=== PATIENT | female | born 1945 | race Caucasian/White ===

== ENCOUNTER 2017-09-06 16:12 | Emergency (ER) | payer OTHER, SELFPAY ==
[2017-09-06 16:12] VITALS: BP 174/85; PULSE 78; RESP 20; TEMP 36.1; O2SAT 97; BMI 31.1
--- NOTE | 2017-09-06 16:25 | PC.NURSE ---
avulsion of distal rt 2nd digit pad from mandolin slicer, bleeding controlled with light pressure, pt concern r/t warfarin rx
--- NOTE | 2017-09-06 16:34 | ED.UPPEXIN ---
HPI - Extremity Injury (Upper) <SANJUANA Silverman - Last Filed: 09/06/17 22:12> General Chief Complaint: Extremity Injury, Upper Stated Complaint: RIGHT HAND INDEX FINGER LACERATION Time Seen by Provider: 09/06/17 16:35 History of Present Illness HPI narrative: 72-year-old female currently on Coumadin here for laceration to her right index finger. She states that she was using her mandolin to slice potatoes at home when she accidentally caught the radial aspect of her right index finger. She states that she recently had her INR completed this morning and was 3 in therapeutic range. She also states that she closed the door on her right middle finger 2 days ago. She denies any other injuries at this timeframe. She is using direct pressure to control bleeding. No other concerns or complaints. MD complaint: injury to: right and finger Related Data Home Medications Medication Instructions Recorded Confirmed aspirin 81 mg PO QDAY #0 08/12/16 09/06/17 fluoxetine 20 mg PO QPM 09/06/17 09/06/17 gabapentin 100 - 300 mg PO HS 09/06/17 09/06/17 metoprolol succinate 50 mg PO BEDTIME 09/06/17 09/06/17 warfarin [Coumadin] 1 dose PO SUMOWETHSA 09/06/17 09/06/17 warfarin [Coumadin] 11.25 mg PO TUFR 09/06/17 09/06/17 Previous Rx's Medication Instructions Recorded omeprazole 40 mg PO QDAY #90 cap 04/23/17 beclomethasone diprop 80 1 puff INHALATION BID #10.6 gram 08/26/17 mcg/actuation HFA breath activated aerosol Allergies Allergy/AdvReac Type Severity Reaction Status Date / Time mometasone furoate Allergy Severe ANAPHYLAXIS Unverified 08/05/17 11:28 [MOMETASONE FUROATE] adhesive [ADHESIVE] Allergy Mild LOCAL Unverified 08/05/17 11:28 HIVES,BLISTERS diclofenac [From VOLTAREN] Allergy Mild HIVES Unverified 08/05/17 11:28 latex [LATEX] Allergy Mild HIVES,BLIST Unverified 08/05/17 11:28 ERS adhesive tape [ADHESIVE TAPE] Allergy Unknown Unverified 08/05/17 11:28 ezetimibe [EZETIMIBE] Allergy Unknown Unverified 08/05/17 11:28 sulfite Allergy Unknown Unverified 08/05/17 11:28 codeine [CODEINE] AdvReac Mild HALLUCINATI Unverified 08/05/17 11:28 ONS gluten [GLUTEN] AdvReac Mild IMMEDIATE Unverified 08/05/17 11:28 DIARRHEA morphine [MORPHINE] AdvReac Mild HALLUCINATI Unverified 08/05/17 11:28 ONS simvastatin [SIMVASTATIN] AdvReac Mild MYALGIAS Unverified 08/05/17 11:28 soy AdvReac Mild SOY MILK - Unverified 08/05/17 11:28 UPSET STOMACH Csexehm-Lce-Zdy Reductase AdvReac Mild MYALGIAS Unverified 08/05/17 11:28 Inhibitor [[id number] REDUCTASE INHIBITOR] Milk Containing Products AdvReac Unknown CRAMPING,DRINKS Unverified 08/05/17 11:28 [MILK CONTAINING PRODUCTS] ALMOND MILK Review of Systems <SANJUANA Silverman - Last Filed: 09/06/17 22:12> Constitutional Denies chills, Denies fever(s), Denies lethargy and Denies weakness Eyes Denies change in vision, Denies eye discharge, Denies irritation and Denies loss of vision ENT Ears, Nose, Mouth, and Throat: Denies change in voice, Denies neck pain and Denies sore throat Cardiovascular Denies chest pain, Denies irregular heart rhythm, Denies lightheadedness, Denies palpitations, Denies dyspnea, Denies dyspnea on exertion and Denies orthopnea Respiratory Denies cough, Denies dyspnea, Denies dyspnea on exertion and Denies wheezing Gastrointestinal Gastrointestinal: Denies abdominal pain, Denies change in bowel habits, Denies diarrhea, Denies nausea and Denies vomiting Genitourinary Denies hematuria, Denies flank pain, Denies urinary incontinence and Denies urinary urgency Musculoskeletal Denies neck pain Comments: Laceration right index finger Integumentary/Breasts Denies pruritus, Denies erythema, Denies rash and Denies wounds Neurologic Denies confusion, Denies loss of vision and Denies weakness Psychiatric Denies anxiety, Denies confusion, Denies depression, Denies homicidal ideation and Denies suicidal ideation Endocrine Denies palpitations Hematologic/Lymphatic Denies easy bruising Allergic/Immunologic Denies wheezing Exam <SANJUANA Silverman - Last Filed: 09/06/17 22:12> Initial Vital Signs Initial Vital Signs: Vital Signs Temperature 97 F L 09/06/17 16:12 Pulse Rate 78 09/06/17 16:12 Respiratory Rate 20 09/06/17 16:12 Blood Pressure 174/85 H 09/06/17 16:12 Pulse Oximetry 97 09/06/17 16:12 Const General: cooperative and well developed Nutritional Appearance: well nourished Orientation: alert, awake, oriented x3 and not confused HENTX Mouth: oral mucosae normal and moist mucous membranes Eyes Conjunctivae: conjunctivae normal Sclera: sclerae normal Pupils: PERRL EOM: EOM intact bilaterally Resp Effort & Inspection: normal respiratory effort, able to speak in complete sentences, no respiratory distress and no use of accessory muscles Auscultation: clear to auscultation bilaterally, no rales, no rhonchi and no wheezes Cardio Rate: regular rate Rhythm: regular rhythm Heart Sounds: no click, no gallops, no murmurs and no rubs Pulses: normal peripheral pulses Skin General: no rashes or lesions noted, No jaundice and No petechiae Extrem Other: Right index finger with avulsion laceration to the ulnar aspect of prior approximately 2 cm in length. Bleeding is controlled with direct pressure. Distal CMS is intact. Right middle finger with no signs of trauma or deformity. Distal CMS is intact. <Dylon Redding MD - Last Filed: 09/07/17 05:53> Initial Vital Signs Initial Vital Signs: Vital Signs Temperature 97 F L 09/06/17 16:12 Pulse Rate 78 09/06/17 16:12 Respiratory Rate 20 09/06/17 16:12 Blood Pressure 174/85 H 09/06/17 16:12 Pulse Oximetry 97 09/06/17 16:12 Course <SANJUANA Silverman - Last Filed: 09/06/17 22:12> Orders Ordered: ED Orders 09/06/17 16:50 XR finger RT min 2V Stat Vital Signs - 8 hr 09/06/17 16:12 Temperature 97 F L Pulse Rate 78 Respiratory Rate 20 Blood Pressure 174/85 H Pulse Oximetry 97 <Dylon Redding MD - Last Filed: 09/07/17 05:53> Orders Ordered: ED Orders 09/06/17 16:50 XR finger RT min 2V Stat Vital Signs - 8 hr 09/06/17 16:12 Temperature 97 F L Pulse Rate 78 Respiratory Rate 20 Blood Pressure 174/85 H Pulse Oximetry 97 [facility] - Extremity Injury (Upper) <SANJUANA Silverman - Last Filed: 09/06/17 22:12> Imaging Data fingers : Radiologist's impression: PROCEDURE: XR FINGER RT MIN 2V INDICATIONS: 72 year-old female with right finger injury. TECHNIQUE: AP hand, 2 views of the right second finger(s) acquired. COMPARISON: [facility], , HAND 3V RIGHT, 10/09/2013, 15:07. FINDINGS: Bones: No acute fractures or dislocations. There is nonacute nonunited avulsion fracture of the ulnar styloid tip. Second, third, and fifth distal interphalangeal joint degeneration is again noted. No suspicious bony lesions. Soft tissues: No suspicious soft tissue calcifications. IMPRESSION: 1. No acute bony injuries of the right index finger. 2. Nonacute nonunited ulnar styloid process avulsion fracture. 3. Second, third, and fifth distal interphalangeal joint degeneration as before. Dictated by: Lee Hatch M.D. on 09/06/2017 at 17:13 Approved by: Lee Hatch M.D. on 09/06/2017 at 17:15 [facility] Narrative Medical decision making narrative: X-ray the right hand was obtained was negative for any acute findings. Gel-Foam was used to the laceration to the right index finger and was able to stop bleeding. It is dressed with a gauze dressing. Follow up with primary care provider later this week for re-evaluation. [id number] Tylenol Motrin as needed for any discomfort. Dress wound daily with bacitracin and a dressing. Keep the original dressing on clean and dry for 36 hr. After that timeframe may change the dressing. Return emergency room for any worsening symptoms. Discharge Plan Departure Patient Disposition: Home, Self-Care Clinical Impression: Laceration of right index finger Discharge Date/Time: 09/06/17 19:04 Interventions: ED Discharge Assessment Last Done: 09/06/17 19:04 Instructions: DI for Avulsion Laceration (Not Requiring Sutures) Activity Restrictions/Additional Instructions: X-ray the right hand was obtained was negative for any acute findings. Gel-Foam was used to the laceration to the right index finger and was able to stop bleeding. It is dressed with a gauze dressing. Follow up with primary care provider later this week for re-evaluation. Shui-myc-xdzjxly Tylenol Motrin as needed for any discomfort. Dress wound daily with bacitracin and a dressing. Keep the original dressing on clean and dry for 36 hr. After that timeframe may change the dressing. Return emergency room for any worsening symptoms. Prescriptions: No Action aspirin 81 MG tablet,delayed release (DR/EC) 81 mg PO QDAY Qty: 0 RF: 0 omeprazole 40 MG capsule,delayed release(DR/EC) 40 mg PO QDAY Qty: 90 RF: 2 beclomethasone dipropionate [Qvar RediHaler] 80 mcg/actuation HFA aerosol breath activated 1 puff INHALATION BID Qty: 10.6 RF: 0 warfarin [Coumadin] 7.5 MG tablet 1 dose PO SUMOWETHSA RF: 0 gabapentin 100 MG capsule 100 - 300 mg PO HS RF: 0 warfarin [Coumadin] 7.5 mg Tablet 11.25 mg PO TUFR RF: 0 metoprolol succinate 50 mg tablet extended release 24 hr 50 mg PO BEDTIME RF: 0 fluoxetine 20 MG capsule 20 mg PO QPM RF: 0 Referrals: Kinsey Espinoza DO [Primary Care Provider] - <Dylon Redding MD - Last Filed: 09/07/17 05:53> Cosign ED Attending Walkerature Attestation: I was immediately available in the department for consultation. Documentation has been reviewed. I agree with assessment and plan.
--- NOTE | 2017-09-06 16:50 | DI.RAD.S_ITS ---
PROCEDURE: XR FINGER RT MIN 2V INDICATIONS: 72 year-old female with right finger injury. TECHNIQUE: AP hand, 2 views of the right second finger(s) acquired. COMPARISON: [facility], , HAND 3V RIGHT, 10/09/2013, 15:07. FINDINGS: Bones: No acute fractures or dislocations. There is nonacute nonunited avulsion fracture of the ulnar styloid tip. Second, third, and fifth distal interphalangeal joint degeneration is again noted. No suspicious bony lesions. Soft tissues: No suspicious soft tissue calcifications. IMPRESSION: 1. No acute bony injuries of the right index finger. 2. Nonacute nonunited ulnar styloid process avulsion fracture. 3. Second, third, and fifth distal interphalangeal joint degeneration as before. Dictated by: Lee Hatch M.D. on 09/06/2017 at 17:13 Approved by: Lee Hatch M.D. on 09/06/2017 at 17:15
== END 2017-09-06 19:04 | disposition home or self-care (01) ==
PROVIDERS: Emergency Provider Nurse Practitioner Family; Family Provider Family Medicine; PCP Family Medicine
DX: S61.210A Laceration without foreign body of right index finger without damage to nail, initial encounter (principal); W26.8XXA Contact with other sharp object(s), not elsewhere classified, initial encounter; Z79.01 Long term (current) use of anticoagulants
CPT/HCPCS: 73140; 99282; 99283

== ENCOUNTER → 2018-01-21 07:43 | Outpatient (CLI) | payer OTHER, SELFPAY ==
--- NOTE | 2018-01-21 07:44 | DI.NM.S_ITS ---
PROCEDURE: NM NGHIA PERF SPECT R&S PHARM Rest and pharmacological stress myocardial perfusion SPECT with gated imaging and ejection fraction RADIOPHARMACEUTICAL: 26.0 mCi Tc-99m tetrafosmin IV at rest and 15.7mCi Tc-99m tetrafosmin IV at peak effect of pharmacological stress. [id number]-fyq-[id number] was performed. INDICATIONS: dyspnea on exertion TECHNIQUE: Radiopharmaceutical was injected at peak stress test, and also at rest. SPECT images were obtained. SPECT myocardial perfusion images were displayed in short axis, horizontal long axis, and vertical long axis views. Gated images were reviewed using [place] software. COMPARISON: None. CARDIAC STRESS: A pharmacologic stress test was performed under the supervision of an attending staff, using an infusion of lexiscan 0.4mg IV X1 . Hemodynamic data: There is normal blood pressure and heart rate response to pharmacologic stress. Symptoms: The patient denied anginal chest pain. Aminophylline: none EKG: No diagnostic changes of ischemia; rare PVCs present. FINDINGS: Raw data: There is good myocardial uptake of radiotracer. No significant motion artifacts. Yqnx-zg-jrhjx ratio is 0.21 (normal is less than 0.38 for tetrafosmin tracer). Left ventricle function: Gated images demonstrate normal left ventricular wall thickening. No segmental wall motion abnormalities. No transient ischemic dilation. Left ventricle resting end diastolic volume is 81 mL. Left ventricle stress ejection fraction is 88%; normal range is above 45%. Myocardial perfusion: There is a severe basal to mid lateral wall defect at rest that improves with stress and nearly resolves with prone imaging, suggesting probably artifact than true ischemia or infarction. IMPRESSION: Probably normal lexiscan nuclear stress test. 1) Probably normal perfusion images. There is a severe basal to mid lateral wall defect at rest that improves with stress and nearly resolves with prone imaging, suggesting probably artifact than true ischemia or infarction. 2) Normal left ventricular size, wall motion, and systolic function (EF post stress 88%). 3) No ECG evidence of ischemia. 4) No angina during the study. 5) No prior nuclear stress test available for comparison. Dictated by: Nika Mazariegos MD on 01/24/2018 at 17:56 Approved by: Nika Mazariegos MD on 01/24/2018 at 18:00
--- NOTE | 2018-01-21 10:29 | PM.TREADMILL ---
Cardiac Stress Test Report Referral & Results Date Patient Seen: 01/21/18 Requesting provider: Kinsey Espinoza Indication: Dyspnea upon exertion Rest ECG: Unremarkable Procedure Note: After both written and verbal informed consent the patient had an IV started by the diagnostic imaging RN and then was hooked up to the treadmill monitoring system. The patient was placed on the treadmill at 1 mile an hour with no elevation and was then injected with the [place] scan material. The Cardiolite was then immediately administered. The patient spent an additional 2-3 minutes on the treadmill before being returned to the [facility] in the supine position. The patient had a normal response to all infused materials. Impression: Normal response to infuse materials Occasional PVC including a single ventricular couplet were identified Please see perfusion imaging report for details regarding possible ischemia Please note: Actual ECG tracings can be found in the PACS system.
== END ==
PROVIDERS: PCP Family Medicine; Visit Provider Family Medicine
DX: R06.09 Other forms of dyspnea (principal); I49.3 Ventricular premature depolarization
CPT/HCPCS: 78452; 93016; 93017; 93018; A9502; J2785

== ENCOUNTER → 2018-01-31 13:19 | Outpatient (CLI) | payer OTHER, SELFPAY ==
--- NOTE | 2018-01-31 | DI.MG.S_ITS ---
BILATERAL DIGITAL SCREENING MAMMOGRAM 3D/2D WITH CAD: 01/31/2018 CLINICAL: Routine screening. Family history of breast cancer. Comparison is made to exams dated: 09/14/2016 mammogram, 10/09/2014 mammogram, and 08/05/2012 mammogram - [facility]. There are scattered fibroglandular elements in both breasts. Current study was also evaluated with a Computer Aided Detection (CAD) system. No significant masses, calcifications, or other findings are seen in either breast. There has been no significant interval change. IMPRESSION: NEGATIVE There is no mammographic evidence of malignancy. A 1 year screening mammogram is recommended. This exam was interpreted at Station ID: [id number]. NOTE: For mammograms, a report in lay terms will be sent to the patient. Approximately 15% of breast malignancies will not be visualized mammographically. In the management of a palpable breast mass, a negative mammogram must not discourage biopsy of a clinically suspicious lesion. Electronically Signed By: Cooper ryan/kirby:02/01/2018 19:22:36 letter sent: Normal Exam ACR BI-RADS Category 1: Negative [id number]
== END ==
PROVIDERS: PCP Family Medicine; Visit Provider Family Medicine
DX: Z12.31 Encounter for screening mammogram for malignant neoplasm of breast (principal); Z80.3 Family history of malignant neoplasm of breast
CPT/HCPCS: 77063; 77067

== ENCOUNTER → 2018-03-14 14:44 | Outpatient (CLI) | payer OTHER, SELFPAY ==
--- NOTE | 2018-03-14 | DI.ECHO.S_ITS ---
[place] [facility]---------+ [facility] +---------+ : : [address] [place] [place] : : : : [id number] : : : : Phone: [phone] Echocardiogram Report + + :Name: JEFF PUGH Study Date: 03/14/2018 Height: 62 in : :[facility] Weight: 156 lb : : Gender: Female BSA: 1.7 m2 : :: 1945 Age: 72 yrs BP: 140/78 mmHg: :Reason For Study: Mitral Valve - Replacement : :Ordering Physician: Braden : :Raul Mackey Performed By: Tawanna Churchill : + + Interpretation Summary The left ventricle is normal in size. There is normal left ventricular wall thickness. The ejection fraction is estimated to be 60-65%. The right ventricle is normal size and visually normal and function. 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 No continuous wave Doppler to measure the mean gradient. But the maximum PW E velocity is 1.4 m/s, which is lower than the prior value of 2 m/s. No color Doppler evidence of mitral stenosis. There is moderate aortic regurgitation. The right ventricular systolic pressure is estimated to be at least 29 mmHg based on an estimated right atrial pressure of 3 mm Hg. -Overall this echo shows improved PA pressure with stable (and likely improved) mean gradient through the mechanical mitral valve. Procedure: A two-dimensional transthoracic echocardiogram with color flow and Doppler was performed. The study quality was technically adequate. Comparison is made with the echocardiogram of 12/11/2016. The patient was in normal sinus rhythm during the exam. Left Ventricle: The left ventricle is normal in size. There is normal left ventricular wall thickness. A false chord is noted (normal variant). The ejection fraction is estimated to be 60-65%. There are no focal wall motion abnormalities. Diastolic function could not be accurately assessed due to confounding valvular disease. Right Ventricle: The right ventricle is normal size. The right ventricular function is visually normal. Atria: The left atrium is severely dilated. The right atrium is mildly dilated. There is no Doppler evidence for an interatrial shunt. 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 The prosthetic mitral valve is well-seated. Mitral regurgitation is present, however its severity cannot be assessed due to shielding from the prosthesis. No continuous wave Doppler to measure the mean gradient. But the maximum PW E velocity is 1.4 m/s, which is lower than the prior value of 2 m/s. No color Doppler evidence of mitral stenosis. Aortic Valve: The aortic valve is trileaflet. The aortic valve opens well. There is no aortic valve stenosis. There is moderate aortic regurgitation. Tricuspid Valve: The tricuspid valve leaflets are thin and pliable. There is mild tricuspid regurgitation. The right ventricular systolic pressure is estimated to be at least 29 mmHg based on an estimated right atrial pressure of 3 mm Hg. Pulmonic Valve: The pulmonic valve leaflets are thin and pliable; valve motion is normal. There is trace pulmonic regurgitation. Great Vessels: The aortic root is borderline dilated. The ascending aorta is at the upper limits of normal in size. The aortic arch is normal in size. The IVC is of normal diameter and collapses greater than 50% with a sniff. This suggests a low right atrial pressure of 3 mm Hg. Pericardium/ Pleura There is no pericardial effusion. MMode/2D Measurements & Calculations LVIDd: 4.2 cm LVOT diam: 2.1 cm LVIDs: 2.0 cm Ao root diam: 3.9 cm FS: 52.3 % Aortic Jxn: 3.0 cm IVSd: 0.90 cm asc Aorta Diam: 3.4 cm LVPWd: 0.87 cm Ao Arch Diam (Prox Trans): 2.6 cm LV ridley. diameter/BSA (cm/m^2): 2.4 LV sys. diameter/BSA (cm/m^2): 1.2 LA A2 area: 25.2 cm2 RA long axis: 5.0 cm LA A4 area: 21.1 cm2 RA area: 19.8 cm2 LA length (vol): 5.3 cm RA vol: 66.8 ml LA vol: 85.1 ml RA : 38.8 ml/m2 LA vol index: 49.5 ml/m2 IVC diam: 0.86 cm RVD1 (basal): 3.7 cm RVD2 (mid): 3.0 cm TAPSE: 1.0 cm Doppler Measurements & Calculations Ao V2 max: 125.7 cm/sec LVOT Max Michael: 93.5 cm/sec Ao V2 mean: 87.5 cm/sec LV V1 max P.5 mmHg Ao max P.3 mmHg LV V1 VTI: 17.7 cm Ao mean P.5 mmHg HAMZAH(I,D): 2.3 cm2 Ao V2 VTI: 26.7 cm HAMZAH(V,D): 2.6 cm2 sev ratio: 0.66 HAMZAH indexed to BSA (cm^2/m^2): 1.4 AI P1/2t: 427.1 msec AI dec slope: 259.3 cm/sec2 MV E max michael: 141.1 cm/sec TR max michael: 254.1 cm/sec MV A max michael: 50.5 cm/sec TR max P.8 mmHg MV E/A: 2.8 PA V2 max: 56.9 cm/sec Med Peak E' Michael: 6.6 cm/sec PA V2 mean: 44.2 cm/sec E/E' med: 21.3 PA mean P.86 mmHg Lat Peak E' Michael: 8.5 cm/sec PA Accel Time: 0.10 sec E/E' lat: 16.6 E/e' average: 18.9 MV dec time: 0.20 sec MV P1/2t: 59.2 msec MVA(VTI): 2.4 cm2 MV V2 mean: 61.1 cm/sec MV P1/2t max michael: 141.1 cm/sec MV mean P.1 mmHg MVA(P1/2t): 3.7 cm2 MV V2 VTI: 25.7 cm SV(LVOT): 62.4 ml Electronically signed by: Braden Carter M.D. on Reading Physician:03/14/2018 06:47 PM
== END ==
PROVIDERS: PCP Family Medicine; Visit Provider Hospitalist
DX: I08.3 Combined rheumatic disorders of mitral, aortic and tricuspid valves (principal); Z95.2 Presence of prosthetic heart valve
CPT/HCPCS: 93306

== ENCOUNTER → 2018-04-22 09:00 | Outpatient (CLI) | payer OTHER, SELFPAY ==
[2018-04-22 09:40] LABS: Add Manual Diff / Slide Review NO; Basophils Absolute Auto 0 /uL (0-100); Basophils Percent Auto 0.1 % (0-2); Eosinophils Absolute Auto 0 /uL (0-450); Hematocrit 41.2 % (36-46); Lymphocytes Absolute Auto 500 /uL (1100-4500); Lymphocytes Percent Auto 6.9 % (25-40); Mean Corpuscular HGB Conc 33.9 % (30-36); Mean Corpuscular Hemoglobin 31.1 PG (26-34); Mean Corpuscular Volume 91.7 fL (80-100); Monocytes Absolute Auto 200 /uL (0-900); Monocytes Percent Auto 3.1 % (3-14); Neutrophils Absolute Auto 6400 /uL (1500-7000); Neutrophils Percent Auto 89.9 % (50-75); Platelet Count 216 X10^3/uL (150-400); Red Blood Cell Count 4.49 X10^6/uL (4.0-5.2); Red Cell Distribution Width 13.5 % (11.6-14.8); White Blood Cell Count 7.1 X10^3/uL (4.5-11.0)
[2018-04-22 09:46] LABS: HEMOLYSIS < 15 (0-50); Potassium 4.4 mmol/L (3.4-5.1)
[2018-04-22 09:47] LABS: Alanine Aminotransferase 30 IU/L (9-52); Albumin 4.7 g/dL (3.5-5.0); Albumin Globulin Ratio 1.5 (1.0-2.8); Alkaline Phosphatase 69 U/L (38-126); Amylase 51 U/L (30-110); Aspartate Aminotransferase 23 IU/L (14-36); BUN Creatinine Ratio 21.7 (6-22); Bilirubin Total 0.6 mg/dL (0.2-1.3); Blood Urea Nitrogen 13 mg/dL (7-17); Calcium 9.8 mg/dL (8.4-10.2); Carbon Dioxide 26 mmol/L (22-32); Chloride 101 mmol/L (98-107); Estimated Glomerular Filt Rate > 60.0 mL/min (>60); Globulin 3.1 g/dL (1.7-4.1); Glucose 110 mg/dL (80-110); Lipase 76 U/L (23-300); Sodium 137 mmol/L (137-145); Total Protein 7.8 g/dL (6.3-8.2)
== END ==
PROVIDERS: PCP Family Medicine; Visit Provider Registered Nurse
DX: R10.11 Right upper quadrant pain (principal); R10.13 Epigastric pain
CPT/HCPCS: 36415; 80053; 82150; 83690; 85025

== ENCOUNTER → 2018-04-28 09:14 | Outpatient (CLI) | payer OTHER, SELFPAY ==
--- NOTE | 2018-04-28 09:16 | DI.US.S_ITS ---
PROCEDURE: US ABDOMEN COMPLETE INDICATIONS: EPIGASTRIC PAIN TECHNIQUE: Real-time scanning was performed of the abdominal and retroperitoneal organs, with image documentation. COMPARISON: [facility], US, ABDOMEN COMPLETE, 08/31/2012, 8:23. FINDINGS: Liver: Liver is normal in size and homogeneous in echotexture. Gallbladder: No gallstones identified. Normal gallbladder wall. No pericholecystic fluid. Negative sonographic Miranda sign. Biliary ducts: Intrahepatic bile ducts are non-dilated. Extrahepatic bile duct caliber measures 5.4 mm. Normal is 6-7 mm or less in diameter, or 10 mm or less post-cholecystectomy. Pancreas: Visualized portions of the pancreas are sonographically normal. Spleen: Spleen is normal in size and homogeneous in echotexture. Kidneys: Kidneys are normal in size and echotexture. Right kidney measures 9.7 cm long; left kidney measures 10.7 cm long. No hydronephrosis or nephrolithiasis. No solid masses. Aorta: Visualized aorta is normal in caliber at less than 3 cm. Iliacs: Proximal common iliac arteries are normal in caliber at less than 2.5 cm. IVC: Intrahepatic inferior vena cava is patent. Miscellaneous: No free abdominal fluid. IMPRESSION: No source for right upper quadrant and epigastric pain identified. Dictated by: Terry DEE Interpreted: Lakisha Piña MD on 04/28/2018 at 11:38 Approved by: Lakisha Piña M.D. on 04/28/2018 at 13:06
== END ==
PROVIDERS: PCP Family Medicine; Visit Provider Registered Nurse
DX: R10.13 Epigastric pain (principal); R10.11 Right upper quadrant pain
CPT/HCPCS: 76700

== ENCOUNTER → 2018-05-19 15:19 | Outpatient (CLI) | payer OTHER, SELFPAY ==
[2018-05-21 13:24] LABS: Rubeola Measles IgG > 300.00 AU/mL (< 25.00)
== END ==
PROVIDERS: PCP Family Medicine; Visit Provider Family Medicine
DX: K92.9 Disease of digestive system, unspecified (principal); Z01.84 Encounter for antibody response examination; K58.9 Irritable bowel syndrome, unspecified
CPT/HCPCS: 36415; 83516; 86255; 86735; 86762; 86765

== ENCOUNTER → 2019-01-17 14:57 | Outpatient (CLI) | payer OTHER, SELFPAY ==
--- NOTE | 2019-01-17 | DI.ECHO.S_ITS ---
[facility] +---------+ : : 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 The prosthetic mitral valve is well-seated. The mitral valve mean gradient is 3.5 mmHg. The left ventricular ejection fraction is normal. There are no focal wall motion abnormalities. The right ventricle is normal in size and function. The right ventricular systolic pressure is estimated to be at least 29 mmHg based on an estimated right atrial pressure of 3 mm Hg. -Compared to prior echo, these findings are similar. The peak MV E velocity on PW is slightly higher than 2018 echo but the mean gradient is the same as 2017 and PA pressures are also unchanged. Procedure: A two-dimensional transthoracic echocardiogram with color flow and Doppler was performed. The study quality was technically adequate. Comparison is made with the echocardiogram of 03/14/2018. The patient was in normal sinus rhythm during the exam. Left Ventricle: The left ventricle is normal in size. There is normal left ventricular wall thickness. A false chord is noted (normal variant). The ejection fraction is estimated to be 60-65%. The left ventricular ejection fraction is normal. There are no focal wall motion abnormalities. Diastolic function could not be accurately assessed due to confounding valvular disease. Right Ventricle: The right ventricle is normal in size and function. Atria: The left atrium is severely dilated. The right atrium is mildly dilated. There is no Doppler evidence for an interatrial shunt. 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 The prosthetic mitral valve is well-seated. Mitral regurgitation is present, however its severity cannot be assessed due to shielding from the prosthesis. The mitral valve mean gradient is 3.5 mmHg. Aortic Valve: The aortic valve is trileaflet. The aortic valve opens well. There is no aortic valve stenosis. There is mild to moderate aortic regurgitation. Tricuspid Valve: The tricuspid valve leaflets are thin and pliable. There are multiple TR jets. There is mild tricuspid regurgitation. The right ventricular systolic pressure is estimated to be at least 29 mmHg based on an estimated right atrial pressure of 3 mm Hg. Pulmonic Valve: The pulmonic valve leaflets are thin and pliable; valve motion is normal. There is mild pulmonic regurgitation. Great Vessels: The aortic root is normal size. The ascending aorta is at the upper limits of normal in size. The aortic arch is normal in size. The IVC is of normal diameter and collapses greater than 50% with a sniff. This suggests a low right atrial pressure of 3 mm Hg. Pericardium/ Pleura There is no pericardial effusion. MMode/2D Measurements & Calculations LVIDd: 4.4 cm LVOT diam: 2.1 cm LVIDs: 2.5 cm Ao root diam: 3.8 cm FS: 42.4 % Aortic Jxn: 3.1 cm IVSd: 0.84 cm asc Aorta Diam: 3.4 cm LVPWd: 0.99 cm Ao Arch Diam (Prox Trans): 2.7 cm LV ridley. diameter/BSA (cm/m^2): 2.5 LV sys. diameter/BSA (cm/m^2): 1.5 LA A2 area: 27.3 cm2 RA long axis: 5.0 cm LA A4 area: 23.8 cm2 RA area: 18.8 cm2 LA length (vol): 5.8 cm RA vol: 60.2 ml LA vol: 95.6 ml RA : 35.0 ml/m2 LA vol index: 55.6 ml/m2 IVC diam: 1.0 cm RVD1 (basal): 3.6 cm RVD2 (mid): 2.6 cm TAPSE: 1.1 cm Doppler Measurements & Calculations Ao V2 max: 126.0 cm/sec LVOT Max Michael: 82.1 cm/sec Ao V2 mean: 73.7 cm/sec LV V1 max P.7 mmHg Ao max P.3 mmHg LV V1 VTI: 18.8 cm Ao mean P.7 mmHg HAMZAH(I,D): 2.6 cm2 Ao V2 VTI: 24.9 cm HAMZAH(V,D): 2.2 cm2 sev ratio: 0.76 HAMZAH indexed to BSA (cm^2/m^2): 1.5 AI P1/2t: 395.6 msec AI dec slope: 260.5 cm/sec2 Med Peak E' Michael: 5.3 cm/sec TR max michael: 257.0 cm/sec Lat Peak E' Michael: 6.6 cm/sec TR max P.4 mmHg MVA(VTI): 2.2 cm2 PA V2 max: 56.0 cm/sec PA V2 mean: 42.9 cm/sec PA mean P.79 mmHg PA Accel Time: 0.11 sec MV V2 mean: 75.5 cm/sec SV(LVOT): 64.5 ml MV mean P.5 mmHg MV V2 VTI: 29.3 cm Electronically signed by: Braden Carter M.D. on Reading Physician:01/18/2019 06:24 PM
== END ==
PROVIDERS: Family Provider Family Medicine; PCP Family Medicine; Visit Provider Hospitalist
DX: I08.3 Combined rheumatic disorders of mitral, aortic and tricuspid valves (principal); I27.20 Pulmonary hypertension, unspecified; Z95.2 Presence of prosthetic heart valve
CPT/HCPCS: 93306

== ENCOUNTER → 2019-04-05 13:45 | Outpatient (CLI) | payer OTHER, SELFPAY ==
--- NOTE | 2019-04-05 13:46 | DI.RAD.S_ITS ---
PROCEDURE: XR SACRUM COCCYX MIN 2V INDICATIONS: fall TECHNIQUE: 3 views of the sacrum and coccyx acquired. COMPARISON: [facility], CR, XR PELVIS 1-2V, 04/05/2019, 13:42. FINDINGS: Bones: No fractures or dislocations. No suspicious bony lesions. There is partial visualization of the proximal femur hardware, as demonstrated on the lateral view. Age-appropriate degenerative changes are seen, including involving the visualized lower lumbar spine. Soft tissues: Visualized bowel gas pattern is normal. No suspicious soft tissue densities. IMPRESSION: No displaced fractures are seen on these plain films. Dictated by: Andrae Dietz M.D. on 04/05/2019 at 13:12 Approved by: Andrae Dietz M.D. on 04/05/2019 at 13:14
--- NOTE | 2019-04-05 13:46 | DI.RAD.S_ITS ---
PROCEDURE: XR PELVIS 1-2V INDICATIONS: fall TECHNIQUE: One view(s) of the pelvis acquired. COMPARISON: None. FINDINGS: Bones: No fractures or dislocations. No suspicious bony lesions. There is partial visualization of right femoral hardware. Degenerative changes are seen, including involving visualized lower lumbar spine. Soft tissues: Visualized bowel gas pattern is normal. No suspicious soft tissue calcifications. IMPRESSION: No displaced fractures are seen on these plain films. If there is focal tenderness, or other clinical concern for a fracture not seen on these images in this patient with a given history of trauma, please consider a dedicated CT or a short-term followup plain film series (in 1-2 weeks) for further evaluation. Dictated by: Andrae Dietz M.D. on 04/05/2019 at 13:14 Approved by: Andrae Dietz M.D. on 04/05/2019 at 13:15
== END ==
PROVIDERS: PCP Family Medicine; Visit Provider Physician Assistant
DX: M53.3 Sacrococcygeal disorders, not elsewhere classified (principal)
CPT/HCPCS: 72170; 72220

== ENCOUNTER → 2019-08-31 15:56 | Outpatient (CLI) | payer OTHER, SELFPAY ==
--- NOTE | 2019-08-31 15:59 | DI.RAD.S_ITS ---
PROCEDURE: XR WRIST RT MIN 3V INDICATIONS: right wrist pain TECHNIQUE: 4 views of the wrist were acquired. COMPARISON: None. FINDINGS: Bones: No fractures or dislocations. No suspicious bony lesions. First CMC and triscaphe joint degeneration. Distal radial ulnar joint degeneration. Diffuse carpal degenerative sclerosis and spurring. Mildly widened appearance of the scapholunate interval. Chronic ossicle seen projecting adjacent to the ulnar styloid presumably from remote trauma, versus loose body Soft tissues: No suspicious soft tissue calcifications. IMPRESSION: Diffuse carpal degenerative changes Widened appearance of the scapholunate interval raising the possibility of scapholunate ligament injury. This can be further assessed with MR arthrogram as clinically warranted. Dictated by: Tom Coburn M.D. on 08/31/2019 at 16:38 Approved by: Tom Coburn M.D. on 08/31/2019 at 16:42
[2019-08-31 17:32] LABS: Add Manual Diff / Slide Review NO; Basophils Absolute Auto 0 /uL (0-100); Basophils Percent Auto 0.8 % (0-2); Eosinophils Absolute Auto 200 /uL (0-450); Eosinophils Percent Auto 5.5 % (2-4); Hematocrit 37.3 % (36-46); Lymphocytes Absolute Auto 1000 /uL (1100-4500); Lymphocytes Percent Auto 27.2 % (25-40); Mean Corpuscular HGB Conc 34.8 % (30-36); Mean Corpuscular Hemoglobin 32.3 PG (26-34); Mean Corpuscular Volume 92.9 fL (80-100); Monocytes Absolute Auto 500 /uL (0-900); Monocytes Percent Auto 13.5 % (3-14); Neutrophils Absolute Auto 2000 /uL (1500-7000); Platelet Count 197 X10^3/uL (150-400); Red Blood Cell Count 4.02 X10^6/uL (4.0-5.2); Red Cell Distribution Width 13.6 % (11.6-14.8); White Blood Cell Count 3.8 X10^3/uL (4.5-11.0)
[2019-08-31 17:47] LABS: BUN Creatinine Ratio 15.3 (6-22); Blood Urea Nitrogen 11 mg/dL (7-17); C-Reactive Protein Quant 0.5 mg/dL (<1.0); Calcium 9.4 mg/dL (8.4-10.2); Carbon Dioxide 25 mmol/L (22-32); Chloride 106 mmol/L (98-107); Estimated Glomerular Filt Rate > 60.0 mL/min (>60); Glucose 87 mg/dL (80-110); HEMOLYSIS < 15 (0-50); Potassium 4.1 mmol/L (3.4-5.1); Sodium 137 mmol/L (137-145); Uric Acid 5.2 mg/dL (2.5-6.2)
[2019-08-31 17:54] LABS: Erythrocyte Sedimentation Rate 17 MM/HR (0-20)
== END ==
PROVIDERS: PCP Family Medicine; Referring Provider Family Medicine; Visit Provider Family Medicine
DX: M10.9 Gout, unspecified (principal); M25.531 Pain in right wrist
CPT/HCPCS: 36415; 73110; 80048; 84550; 85025; 85651; 86140

== ENCOUNTER → 2019-10-26 07:13 | Outpatient (CLI) | payer OTHER, SELFPAY ==
[2019-10-26 08:23] LABS: Basophils Absolute Auto 0 /uL (0-100); Eosinophils Absolute Auto 200 /uL (0-450); Hemoglobin 13.3 g/dL (12.0-16.0); Lymphocytes Absolute Auto 900 /uL (1100-4500); Monocytes Absolute Auto 500 /uL (0-900); Neutrophils Absolute Auto 1700 /uL (1500-7000)
[2019-10-26 08:30] LABS: Add Manual Diff / Slide Review NO; Basophils Percent Auto 0.8 % (0-2); Hematocrit 38.7 % (36-46); Mean Corpuscular HGB Conc 34.3 % (30-36); Mean Corpuscular Hemoglobin 31.5 PG (26-34); Mean Corpuscular Volume 91.9 fL (80-100); Monocytes Percent Auto 14.2 % (3-14); Platelet Count 184 X10^3/uL (150-400); Red Blood Cell Count 4.21 X10^6/uL (4.0-5.2); Red Cell Distribution Width 13.6 % (11.6-14.8); White Blood Cell Count 3.3 X10^3/uL (4.5-11.0)
[2019-10-26 08:31] LABS: Alanine Aminotransferase 24 IU/L (<35); Albumin 4.1 g/dL (3.5-5.0); Albumin Globulin Ratio 1.5 (1.0-2.8); Alkaline Phosphatase 81 U/L (38-126); Aspartate Aminotransferase 32 IU/L (14-36); BUN Creatinine Ratio 15.4 (6-22); Bilirubin Total 0.6 mg/dL (0.2-1.3); Blood Urea Nitrogen 10 mg/dL (7-17); Calcium 9.3 mg/dL (8.4-10.2); Carbon Dioxide 30 mmol/L (22-32); Chloride 105 mmol/L (98-107); Cholesterol 312 mg/dL (140-199); Estimated Glomerular Filt Rate > 60.0 mL/min (>60); Globulin 2.8 g/dL (1.7-4.1); Glucose 87 mg/dL (80-110); HDL Cholesterol 60 mg/dL (40-60); HEMOLYSIS < 15 (0-50); LDL Cholesterol Calculated 218 mg/dL (<100); Lipase 110 U/L (23-300); Potassium 4.6 mmol/L (3.4-5.1); Sodium 137 mmol/L (137-145); Total Protein 6.9 g/dL (6.3-8.2); Triglycerides 169 mg/dL (35-150)
[2019-10-26 09:11] LABS: TSH w/ Reflex to FT4 2.86 uIU/mL (0.47-4.68)
== END ==
PROVIDERS: PCP Family Medicine; Referring Provider Family Medicine; Visit Provider Family Medicine
DX: E66.9 Obesity, unspecified (principal); E78.5 Hyperlipidemia, unspecified; I27.20 Pulmonary hypertension, unspecified; R00.0 Tachycardia, unspecified; Z95.2 Presence of prosthetic heart valve; R10.9 Unspecified abdominal pain
CPT/HCPCS: 36415; 80053; 80061; 83690; 84443; 85025

== ENCOUNTER → 2019-11-01 08:03 | Outpatient (CLI) | payer OTHER, SELFPAY ==
--- NOTE | 2019-11-01 08:05 | DI.US.S_ITS ---
PROCEDURE: US ABDOMEN COMPLETE INDICATIONS: ABN STOOL TECHNIQUE: Real-time scanning was performed of the abdominal and retroperitoneal organs, with image documentation. COMPARISON: [facility], CR, XR PELVIS 1-2V, 04/05/2019, 13:42. [facility], US, US ABDOMEN COMPLETE, 04/28/2018, 9:20. FINDINGS: Liver: Coarse echogenic liver suggesting diffuse hepatocellular disease/fatty infiltration. Please correlate with LFTs. Gallbladder: Unremarkable. No sonographic Miranda sign. Biliary ducts: Intrahepatic bile ducts are non-dilated. Extrahepatic bile duct caliber measures 4-6 mm. Normal is 6-7 mm or less in diameter, or 10 mm or less post-cholecystectomy. Pancreas: Visualized portions of the pancreas are sonographically normal. Spleen: Spleen is normal in size and homogeneous in echotexture. Kidneys: Kidneys are normal in size and echotexture. Right kidney measures 9.4 cm long; left kidney measures 11.3 cm long. No hydronephrosis . There are sub 5 mm scattered echogenic foci without definite shadowing. Technically, cannot exclude nonobstructive nephrolithiasis. No solid masses. Aorta: Visualized aorta is normal in caliber at less than 3 cm. Iliacs: Proximal common iliac arteries are normal in caliber at less than 2.5 cm. IVC: Intrahepatic inferior vena cava is patent. Miscellaneous: No free abdominal fluid. IMPRESSION: Coarse echogenic liver suggesting diffuse hepatocellular disease/fatty infiltration. Please correlate with LFTs. Normal appearance of the gallbladder. Non-specific small echogenic foci seen in the kidneys, further evaluation could be performed with CT KUB to exclude nephrolithiasis as clinical suspicion warrants. Dictated by: Tom Coburn M.D. on 11/01/2019 at 9:12 Approved by: Tom Coburn M.D. on 11/01/2019 at 9:14
== END ==
PROVIDERS: PCP Family Medicine; Referring Provider Family Medicine; Visit Provider Family Medicine
DX: R19.5 Other fecal abnormalities (principal)
CPT/HCPCS: 76700

== ENCOUNTER 2019-11-30 09:24 | Emergency (ER) | payer OTHER, SELFPAY ==
[2019-11-30 09:30] VITALS: PULSE 80; RESP 18; O2SAT 96
[2019-11-30 09:31] VITALS: BP 202/92; PULSE 85; RESP 12; TEMP 36.8; O2SAT 96; BMI 28.5
--- NOTE | 2019-11-30 09:36 | DI.RAD.S_ITS ---
PROCEDURE: XR CHEST 1V INDICATIONS: chest pain TECHNIQUE: One view of the chest was acquired. COMPARISON: [facility], , CHEST 2 VIEW, 11/30/2016, 8:39. FINDINGS: Surgical changes and devices: Sternotomy wires and prosthetic heart valve are again seen. Electronic device is seen projecting over the left upper chest. Lungs and pleura: Lungs are clear. No pleural effusions or pneumothorax. Mediastinum: Mediastinal contours appear normal. Heart size is normal. Bones and chest wall: No suspicious bony lesions. Overlying soft tissues appear unremarkable. IMPRESSION: No acute cardiopulmonary abnormality. Dictated by: Angel Fernandez M.D. on 11/30/2019 at 10:00 Approved by: Angel Fernandez M.D. on 11/30/2019 at 10:02
--- NOTE | 2019-11-30 09:37 | PC.NURSE ---
Pt has hx articifial heart valve,takes coumadin. pt was walking this am when she felt SOB,dizzy,nauseated,diaphoretic and 1 episode of diarrhea. pt wearing heart monitor and was concerned about an abnormal heart rhythm that she saw on her phone.
--- NOTE | 2019-11-30 09:44 | ED.DIZZY ---
HPI - Dizziness General Chief Complaint: Dizziness Stated Complaint: abnormal reading from heart monitor,diarrhea,dizzy Time Seen by Provider: 11/30/19 09:26 Source: patient Mode of arrival: Ambulatory Limitations: no limitations History of Present Illness HPI Narrative: Patient is a 74-year-old female who presents with a variety of symptoms including dizziness and heart palpitations. She is followed by Dr. Carter cardiology, she has a Holter monitor on now. She has had these symptoms ongoing for some time. She says today she was out walking the dog when she felt her heart beating fast she got short of breath and dizzy and lightheaded. She overall does not feel well. She denies any numbness tingling or weakness in any extremities. She is feeling somewhat better. Her phone says her heart rate was 170 and she showed me the rhythm it appears to be all artifact. She has low-grade headache in the front of her head he says that usually happens when she feels this way. She denies any vomiting but does feel nauseated. No change in vision. No fever or chills. She is short of breath with exertion and even sitting up in taking a deep breath she does not feel she is getting a full breath. She denies any fever chills or productive cough. She said she had an episode of severe diarrhea when she got home she has no abdominal pain MD complaint: dizziness Related Data Home Medications Medication Instructions Recorded Confirmed aspirin 81 mg PO QDAY #0 08/12/16 10/25/19 Previous Rx's Medication Instructions Recorded warfarin 7.5 mg tablet 7.5 mg PO SUMOWETHSA #90 tab 08/23/18 cephalexin 500 mg capsule See Rx Instructions PO ONCE #8 cap 03/17/19 fluoxetine 40 mg capsule 40 mg PO DAILY #30 cap 06/21/19 metoprolol succinate 50 mg 50 mg PO BEDTIME #90 tab 07/17/19 tablet,extended release 24 hr omeprazole 40 mg capsule,delayed 40 mg PO DAILY #90 cap 09/20/19 release warfarin 7.5 mg tablet See Rx Instructions .ROUTE 11/24/19 .COMPLEX #103 tablet Allergies Allergy/AdvReac Type Severity Reaction Status Date / Time mometasone furoate Allergy Severe ANAPHYLAXIS Verified 11/30/19 09:31 [MOMETASONE FUROATE] adhesive [ADHESIVE] Allergy Mild LOCAL Verified 11/30/19 09:31 HIVES,BLISTERS diclofenac [From VOLTAREN] Allergy Mild HIVES Verified 11/30/19 09:31 latex [LATEX] Allergy Mild HIVES,BLIST Verified 11/30/19 09:31 ERS adhesive tape [ADHESIVE TAPE] Allergy Unknown Verified 11/30/19 09:31 ezetimibe [EZETIMIBE] Allergy Unknown Verified 11/30/19 09:31 sulfite Allergy Unknown Verified 11/30/19 09:31 codeine [CODEINE] AdvReac Mild HALLUCINATI Verified 11/30/19 09:31 ONS gluten [GLUTEN] AdvReac Mild IMMEDIATE Verified 11/30/19 09:31 DIARRHEA morphine [MORPHINE] AdvReac Mild HALLUCINATI Verified 11/30/19 09:31 ONS simvastatin [SIMVASTATIN] AdvReac Mild MYALGIAS Verified 11/30/19 09:31 soy AdvReac Mild SOY MILK - Verified 11/30/19 09:31 UPSET STOMACH Unlygiq-Lfw-Kud Reductase AdvReac Mild MYALGIAS Verified 11/30/19 09:31 Inhibitor [[id number] REDUCTASE INHIBITOR] Milk Containing Products AdvReac Unknown CRAMPING,DRINKS Verified 11/30/19 09:31 [MILK CONTAINING PRODUCTS] ALMOND MILK Review of Systems Review of Systems ROS Unobtainable: All systems reviewed & are unremarkable except as noted in HPI and below Constitutional Constitutional: Denies body ache(s), Denies fever(s), Reports headache(s) and Denies night sweats Eyes Eyes: Denies change in vision, Denies eye discharge, Denies irritation and Denies loss of vision ENT Ears, Nose, Mouth, and Throat: Reports headache(s) Cardiovascular Cardiovascular: Reports as per HPI and Reports dyspnea on exertion Respiratory Respiratory: Reports as per HPI, Denies cough and Reports dyspnea on exertion Gastrointestinal Gastrointestinal: Denies abdominal pain, Denies change in bowel habits, Denies diarrhea, Denies nausea and Denies vomiting Neurologic Neurologic: Reports headache(s) and Denies loss of vision Patient History Medical History (Updated 11/30/19 @ 11:07 by Makenna Anne DO) Abnormal Pap smear of cervix (Resolved) Allergy to casein (Acute) Anxiety (Chronic ~1979) Carpal tunnel syndrome (Chronic ~1987) Chickenpox (Resolved) Class 1 obesity (Resolved 08/20/14) Depression (Chronic ~1966) Fibromyalgia (Chronic) Foot pain (Chronic ~2007) Fracture (Resolved ~2007) GERD (gastroesophageal reflux disease) (Chronic ~2008) Heavy menstrual period (Resolved ~1994) History of recurrent ear infection (Chronic) Hyperlipidemia (Chronic) Hypertension (Chronic) IBS (irritable bowel syndrome) (Chronic ~2014) Measles (Resolved ~1951) Migraines (Chronic ~1959) Mumps (Resolved) Osteoarthritis (Chronic ~1999) Osteopenia (Chronic ~1997) Pulmonary hypertension (Acute) Rheumatic fever (Resolved ~1953) Seasonal allergies (Chronic) Sinus tachycardia (Chronic) Urinary incontinence (Chronic ~2002) Vision abnormalities (Chronic) Surgical History Anesthesia (Inactive) H/O mitral valve replacement (Chronic) Status post appendectomy (~1980) Status post bunionectomy (~2010) Status post colonoscopy (~2006) Surgical procedure planned (Resolved ~1996) Family History Brother Age: 60 Hypertension High cholesterol Child Age: 48 Mental health problem Father High cholesterol Heart attack Social History Smoking Status: Never smoker alcohol intake: current substance use type: does not use Smoking Status: Never smoker alcohol intake frequency: holidays/special occasions only Substance Use Type: does not use Exam Initial Vital Signs Initial Vital Signs: Vital Signs Pulse Rate 80 11/30/19 09:30 Respiratory Rate 18 11/30/19 09:30 Pulse Oximetry 96 11/30/19 09:30 GENERAL: Alert well-appearing female and in no acute distress. HEENT: Head atraumatic,EOMI, pupils reactive, face symmetric, moist mucous membranes CARDIOVASCULAR: Regular rate and rhythm without murmurs, rubs or gallops. RESPIRATORY: Breath sounds equal bilaterally, no wheezes rales or rhonchi. ABDOMEN: Soft, nontender. Normoactive bowel sounds all 4 quadrants. No guarding or rebound. EXTREMITIES: Normal range of motion, no clubbing or edema. Neurovascularly intact NEUROLOGICAL: Alert and oriented x4.Normal gait and speech. Cranial nerves II through XII grossly intact. 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 Scores NIH Stroke Scale Level of Conciousness: Alert, keenly responsive Ask month/age: Answers both questions correctly. Open/close eyes, close hand: Performs both tasks correctly Best gaze horizontal: Normal Visual barbour: No visual loss Facial palsy: Normal symetrical movement Left arm drift: No drift for full 10 sec Right arm drift: No drift for full 10 sec Left leg drift: No drift for full 5 sec Right leg drift: No drift for full 5 sec Limb ataxia: Absent Sensory on face/arms/legs: Normal, no sensory loss Best language: No aphasia, normal Dysarthria: Normal Extinction or inattention: No abnormality Total NIH Stroke scale score: 0 Course Orders Ordered: ED Orders 11/30/19 09:30 Complete Blood Count AUTO DIFF Stat Comprehensive Metabolic Panel Stat Lipase Stat NT-proBNP (BNP-Adult 18+) Stat Partial Thromboplastin Time Stat Prothrombin Time INR Stat Troponin & CK Cardiac Panel Stat 11/30/19 09:36 XR chest 1V Stat EKG-12 Lead Stat 11/30/19 09:52 CT head/brain wo con Stat Discontinued Medications Sodium Chloride (Normal Saline 0.9%) 1,000 mls @ 150 mls/hr IV CONT HENRRY Last Infusion: 11/30/19 11:24 Dose: 0 mls/hr Documented by: Admin: 11/30/19 09:52 Dose: 150 mls/hr Documented by: SAMIRA Vital Signs Vital signs: Vital Signs - 8 hr 11/30/19 10:30 11/30/19 11:01 Pulse Rate 70 77 Respiratory Rate 18 Blood Pressure 168/81 H Pulse Oximetry 98 93 MDM - Dizziness Lab Data Attestation: I reviewed the patient's lab results. Result diagrams: 11/30/19 09:30 11/30/19 09:30 Labs: Lab Results 11/30/19 11/30/19 11/30/19 Range/Units 09:30 09:30 09:30 WBC 4.5 (4.5-11.0) X10^3/uL RBC 4.32 (4.0-5.2) X10^6/uL Hgb 13.6 (12.0-16.0) g/dL Hct 39.6 (36-46) % MCV 91.6 (80-100) fL MCH 31.5 (26-34) PG MCHC 34.4 (30-36) % RDW 13.8 (11.6-14.8) % Plt Count 210 (150-400) X10^3/uL Neut % (Auto) 52.7 (50-75) % Lymph % (Auto) 28.3 (25-40) % [place] % (Auto) 14.3 H (3-14) % Eos % (Auto) 4.0 (2-4) % Baso % (Auto) 0.7 (0-2) % Neut # (Auto) 2400 (0457-3068) /uL Lymph # (Auto) 1300 (5278-9168) /uL [place] # (Auto) 600 (0-900) /uL Eos # (Auto) 200 (0-450) /uL Baso # (Auto) 0 (0-100) /uL PT 37.9 H (10.1-12.7) SECONDS INR 3.3 H (0.9-1.3) APTT 54 H (26.4-36.2) SECONDS Sodium 138 (137-145) mmol/L Potassium 4.5 (3.4-5.1) mmol/L Chloride 104 (98-107) mmol/L Carbon Dioxide 26 (22-32) mmol/L BUN 12 (7-17) mg/dL Creatinine 0.69 (0.52-1.04) mg/dL Estimated GFR > 60.0 (>60) mL/min BUN/Creatinine Ratio 17.4 (6-22) Glucose 100 (80-110) mg/dL Calcium 9.6 (8.4-10.2) mg/dL Total Bilirubin 0.7 (0.2-1.3) mg/dL AST 40 H (14-36) IU/L ALT 20 (<35) IU/L Alkaline Phosphatase 86 (38-126) U/L Total Creatine Kinase 84 (30-135) U/L CK-MB (CK-2) TNP CK-MB (CK-2) Rel Index TNP Troponin I < 0.012 (0.01-0.034) ng/mL NT-Pro-B Natriuret Pep (<125) pg/mL Total Protein 7.2 (6.3-8.2) g/dL Albumin 4.4 (3.5-5.0) g/dL Globulin 2.8 (1.7-4.1) g/dL Albumin/Globulin Ratio 1.6 (1.0-2.8) Lipase 150 (23-300) U/L 11/30/19 Range/Units 09:30 WBC (4.5-11.0) X10^3/uL RBC (4.0-5.2) X10^6/uL Hgb (12.0-16.0) g/dL Hct (36-46) % MCV (80-100) fL MCH (26-34) PG MCHC (30-36) % RDW (11.6-14.8) % Plt Count (150-400) X10^3/uL Neut % (Auto) (50-75) % Lymph % (Auto) (25-40) % [place] % (Auto) (3-14) % Eos % (Auto) (2-4) % Baso % (Auto) (0-2) % Neut # (Auto) (8385-8097) /uL Lymph # (Auto) (5720-3985) /uL [place] # (Auto) (0-900) /uL Eos # (Auto) (0-450) /uL Baso # (Auto) (0-100) /uL PT (10.1-12.7) SECONDS INR (0.9-1.3) APTT (26.4-36.2) SECONDS Sodium (137-145) mmol/L Potassium (3.4-5.1) mmol/L Chloride (98-107) mmol/L Carbon Dioxide (22-32) mmol/L BUN (7-17) mg/dL Creatinine (0.52-1.04) mg/dL Estimated GFR (>60) mL/min BUN/Creatinine Ratio (6-22) Glucose (80-110) mg/dL Calcium (8.4-10.2) mg/dL Total Bilirubin (0.2-1.3) mg/dL AST (14-36) IU/L ALT (<35) IU/L Alkaline Phosphatase (38-126) U/L Total Creatine Kinase (30-135) U/L CK-MB (CK-2) CK-MB (CK-2) Rel Index Troponin I (0.01-0.034) ng/mL NT-Pro-B Natriuret Pep 492 H (<125) pg/mL Total Protein (6.3-8.2) g/dL Albumin (3.5-5.0) g/dL Globulin (1.7-4.1) g/dL Albumin/Globulin Ratio (1.0-2.8) Lipase (23-300) U/L Imaging Data CT scan - head: Radiologist's Impression: PROCEDURE: CT HEAD/BRAIN WO CON INDICATIONS: headache HTN TECHNIQUE: Noncontrast 4.5 mm thick angled axial sections acquired from the foramen magnum to the vertex, with coronal and sagittal reformats. For radiation dose reduction, the following was used: automated exposure control, adjustment of mA and/or kV according to patient size. COMPARISON: [facility], , STROKE PROTOCOL, 08/13/2016, 13:52. [facility], CT, HEAD WITHOUT CONTRAST, 08/11/2012, 9:30. [facility], CT, HEAD WITHOUT CONTRAST, 07/05/2014, 8:32. [facility], CT, HEAD WITHOUT CONTRAST, 09/05/2015, 18:31. [facility], CT, HEAD WITHOUT CONTRAST, 08/12/2016, 14:52. FINDINGS: Image quality: Excellent. CSF spaces: Basal cisterns are patent. No extra-axial fluid collections. The ventricles are symmetric in size and shape. Brain: No intracranial bleeds or masses. There is cerebral volume loss for age, with resultant ventricular and sulcal prominence. There are periventricular and deep white matter chronic small vessel ischemic changes. There is intracranial internal carotid artery atherosclerosis. Skull and face: Calvarium and visualized facial bones appear intact, without suspicious lesions. Sinuses: Visualized sinuses and mastoids are clear. IMPRESSION: Unremarkable intracranial study for age. Specifically, no findings of acute intracranial hemorrhage can be seen. Dictated by: Andrae Dietz M.D. on 11/30/2019 at 9:18 Chest x-ray: Radiologist's Impression: PROCEDURE: XR CHEST 1V INDICATIONS: chest pain TECHNIQUE: One view of the chest was acquired. COMPARISON: [facility], , CHEST 2 VIEW, 11/30/2016, 8:39. FINDINGS: Surgical changes and devices: Sternotomy wires and prosthetic heart valve are again seen. Electronic device is seen projecting over the left upper chest. Lungs and pleura: Lungs are clear. No pleural effusions or pneumothorax. Mediastinum: Mediastinal contours appear normal. Heart size is normal. Bones and chest wall: No suspicious bony lesions. Overlying soft tissues appear unremarkable. IMPRESSION: No acute cardiopulmonary abnormality. Dictated by: Angel Fernandez M.D. on 11/30/2019 at 10:00 ECG Data Attestation: I personally reviewed and interpreted this ECG as follows: Prior ECG tracings: available for review Interpretation: Normal sinus rhythm rate [address] changes p.r. interval 146 QRS 94 QTC 433 MDM Narrative Medical decision making narrative: Patient's blood pressure decreased without any intervention her symptoms also improved. She overall is feeling much better. She remains in normal sinus rhythm on the monitor. She turns her Holter monitor tomorrow and follows up with cardiology shortly. At this time symptoms may likely be related to her blood pressure. Discharge Plan Departure Patient Disposition: Home Clinical Impression: Hypertension Qualifiers: Hypertension type: essential hypertension Qualified Code(s): I10 - Essential (primary) hypertension Discharge Date/Time: 11/30/19 11:25 Instructions: Essential Hypertension Activity Restrictions/Additional Instructions: *You have been diagnosed with hypertension *What to do: Please discuss the results of your Holter monitor with your dairy and food laboratory assistant. Your blood pressure was elevated when you came in in may likely be contributing to your symptoms. Please discuss blood pressure medication control with your physician *Continue to take medications as directed *Follow up with your primary care provider in 2-3 days *Return to ER if you should have headache dizziness, passing out, heart palpitations [or] any new, worsening or concerning symptoms Prescriptions: No Action aspirin 81 MG tablet,delayed release (DR/EC) 81 mg PO QDAY Qty: 0 RF: 0 warfarin 7.5 mg tablet 7.5 mg PO SUMOWETHSA Qty: 90 RF: 0 cephalexin [Keflex] 500 mg capsule See Rx Instructions PO ONCE Qty: 8 RF: 0 fluoxetine 40 mg capsule 40 mg PO DAILY Qty: 30 RF: 5 metoprolol succinate 50 mg tablet extended release 24 hr 50 mg PO BEDTIME Qty: 90 RF: 1 omeprazole 40 mg capsule,delayed release(DR/EC) 40 mg PO DAILY Qty: 90 RF: 0 warfarin 7.5 mg tablet See Rx Instructions .ROUTE .COMPLEX Qty: 103 RF: 0 Referrals: Braden Carter MD [Physician] - Kinsey Espinoza DO [Primary Care Provider] -
[2019-11-30] MEDS: SODIUM CHLORIDE 0.9% 1,000 ML 150 ML IV (09:52)
--- NOTE | 2019-11-30 09:52 | DI.CT.S_ITS ---
PROCEDURE: CT HEAD/BRAIN WO CON INDICATIONS: headache HTN TECHNIQUE: Noncontrast 4.5 mm thick angled axial sections acquired from the foramen magnum to the vertex, with coronal and sagittal reformats. For radiation dose reduction, the following was used: automated exposure control, adjustment of mA and/or kV according to patient size. COMPARISON: [facility], , STROKE PROTOCOL, 08/13/2016, 13:52. [facility], CT, HEAD WITHOUT CONTRAST, 08/11/2012, 9:30. [facility], CT, HEAD WITHOUT CONTRAST, 07/05/2014, 8:32. [facility], CT, HEAD WITHOUT CONTRAST, 09/05/2015, 18:31. [facility], CT, HEAD WITHOUT CONTRAST, 08/12/2016, 14:52. FINDINGS: Image quality: Excellent. CSF spaces: Basal cisterns are patent. No extra-axial fluid collections. The ventricles are symmetric in size and shape. Brain: No intracranial bleeds or masses. There is cerebral volume loss for age, with resultant ventricular and sulcal prominence. There are periventricular and deep white matter chronic small vessel ischemic changes. There is intracranial internal carotid artery atherosclerosis. Skull and face: Calvarium and visualized facial bones appear intact, without suspicious lesions. Sinuses: Visualized sinuses and mastoids are clear. IMPRESSION: Unremarkable intracranial study for age. Specifically, no findings of acute intracranial hemorrhage can be seen. Dictated by: Andrae Dietz M.D. on 11/30/2019 at 9:18 Approved by: Andrae Dietz M.D. on 11/30/2019 at 9:20
[2019-11-30 10:00] VITALS: PULSE 72; RESP 9; O2SAT 96
[2019-11-30 10:01] VITALS: BP 164/76; PULSE 72; RESP 21; O2SAT 96
[2019-11-30 10:04] LABS: INR 3.3 (0.9-1.3); Prothrombin Time 37.9 SECONDS (10.1-12.7)
[2019-11-30 10:06] LABS: PTT Partial Thromboplastin Tim 54 SECONDS (26.4-36.2)
[2019-11-30 10:11] LABS: Alanine Aminotransferase 20 IU/L (<35); Albumin 4.4 g/dL (3.5-5.0); Albumin Globulin Ratio 1.6 (1.0-2.8); Alkaline Phosphatase 86 U/L (38-126); Aspartate Aminotransferase 40 IU/L (14-36); BUN Creatinine Ratio 17.4 (6-22); Bilirubin Total 0.7 mg/dL (0.2-1.3); Blood Urea Nitrogen 12 mg/dL (7-17); Calcium 9.6 mg/dL (8.4-10.2); Carbon Dioxide 26 mmol/L (22-32); Chloride 104 mmol/L (98-107); Creatine Kinase 84 U/L (30-135); Estimated Glomerular Filt Rate > 60.0 mL/min (>60); Globulin 2.8 g/dL (1.7-4.1); Glucose 100 mg/dL (80-110); HEMOLYSIS < 15 (0-50); Lipase 150 U/L (23-300); Potassium 4.5 mmol/L (3.4-5.1); Sodium 138 mmol/L (137-145); Total Protein 7.2 g/dL (6.3-8.2)
[2019-11-30 10:19] LABS: Add Manual Diff / Slide Review NO; Basophils Absolute Auto 0 /uL (0-100); Basophils Percent Auto 0.7 % (0-2); Eosinophils Absolute Auto 200 /uL (0-450); Hematocrit 39.6 % (36-46); Hemoglobin 13.6 g/dL (12.0-16.0); Lymphocytes Absolute Auto 1300 /uL (1100-4500); Lymphocytes Percent Auto 28.3 % (25-40); Mean Corpuscular HGB Conc 34.4 % (30-36); Mean Corpuscular Hemoglobin 31.5 PG (26-34); Mean Corpuscular Volume 91.6 fL (80-100); Monocytes Absolute Auto 600 /uL (0-900); Monocytes Percent Auto 14.3 % (3-14); Neutrophils Absolute Auto 2400 /uL (1500-7000); Neutrophils Percent Auto 52.7 % (50-75); Platelet Count 210 X10^3/uL (150-400); Red Blood Cell Count 4.32 X10^6/uL (4.0-5.2); Red Cell Distribution Width 13.8 % (11.6-14.8); White Blood Cell Count 4.5 X10^3/uL (4.5-11.0)
[2019-11-30 10:23] LABS: Troponin I < 0.012 ng/mL (0.01-0.034)
[2019-11-30 10:30] VITALS: BP 168/81; PULSE 70; RESP 18; O2SAT 98
[2019-11-30 10:33] LABS: NT-proBNP (BNP-Adult 18+) 492 pg/mL (<125)
[2019-11-30 11:01] VITALS: PULSE 77; O2SAT 93
== END 2019-11-30 11:25 | disposition home or self-care (01) ==
PROVIDERS: Emergency Provider Emergency Medicine; PCP Family Medicine
DX: I10 Essential (primary) hypertension (principal); R51 Headache; R06.00 Dyspnea, unspecified; R07.9 Chest pain, unspecified
CPT/HCPCS: 36415; 70450; 71045; 80053; 82550; 83690; 83880; 84484; 85025; 85610; 85730; 93005; 93010; 96360; 96361; 99284

== ENCOUNTER → 2019-12-14 | Outpatient (CLI) | payer OTHER, SELFPAY | PROVIDERS: PCP Family Medicine; Referring Provider Internal Medicine; Visit Provider Internal Medicine | DX: Z23 Encounter for immunization (principal) | CPT/HCPCS: 90471; 90662 ==

== ENCOUNTER → 2020-01-11 11:13 | Outpatient (CLI) | payer OTHER, SELFPAY ==
--- NOTE | 2020-01-11 | DI.MG.S_ITS ---
BILATERAL DIGITAL SCREENING MAMMOGRAM 3D/2D WITH CAD: 01/11/2020 CLINICAL: Routine screening. Family history of breast cancer. Comparison is made to exams dated: 01/31/2018 mammogram and 09/14/2016 mammogram - [facility]. There are scattered fibroglandular elements in both breasts. Current study was also evaluated with a Computer Aided Detection (CAD) system. No significant masses, calcifications, or other findings are seen in either breast. There has been no significant interval change. IMPRESSION: NEGATIVE There is no mammographic evidence of malignancy. A 1 year screening mammogram is recommended. This exam was interpreted at Station ID: [id number]. NOTE: For mammograms, a report in lay terms will be sent to the patient. Approximately 15% of breast malignancies will not be visualized mammographically. In the management of a palpable breast mass, a negative mammogram must not discourage biopsy of a clinically suspicious lesion. Electronically Signed By: Angel davis/kirby:01/11/2020 16:34:35 letter sent: Normal Exam ACR BI-RADS Category 1: Negative [id number]
== END ==
PROVIDERS: PCP Family Medicine; Referring Provider Family Medicine; Visit Provider Family Medicine
DX: Z12.31 Encounter for screening mammogram for malignant neoplasm of breast (principal); Z80.3 Family history of malignant neoplasm of breast
CPT/HCPCS: 77063; 77067

== ENCOUNTER → 2020-01-16 08:29 | Outpatient (CLI) | payer OTHER, SELFPAY ==
[2020-01-16 13:09] LABS: COVID19 -Nasal RAPID Negative (Negative)
== END ==
PROVIDERS: PCP Family Medicine; Visit Provider Physician Assistant
DX: Z01.812 Encounter for preprocedural laboratory examination (principal)
CPT/HCPCS: 87635

== ENCOUNTER → 2020-01-19 06:50 | Outpatient (CLI) | payer OTHER, SELFPAY ==
--- NOTE | 2020-01-24 08:16 | PM.PFT.1 ---
Pulmonary Function Test Referral & Results Date Patient Seen: 01/19/20 Requesting provider: Kinsey Espinoza Results: The spirometry demonstrates an FVC of 1.91 L which is 72% of predicted. The FEV1 was measured at 1.46 L which is 73% of predicted. The FEV1/FVC ratio was 76 which is 101% of predicted. Following the administration of bronchodilator there was an 11% improvement in FEV1 and a 56% improvement in FEF 25-75%. Lung volumes show an SVC of 1.84 L which is 70% of predicted. The diffusing capacity was measured at 16.28 which is 75% of predicted. No hemoglobin value was provided, so no correction for potential anemia could be made, if appropriate. The maximum voluntary ventilation was reduced Interpretation: This study demonstrates perhaps very mild obstructive lung disease based on minimal reduction FEV1 although FEV1/FVC ratio was normal. There is also some improvement following bronchodilator as above and shape a flow volume loop suggests potential for obstructive lung disease There is also mild reduction SVC suggesting element of restrictive lung disease is also present There is also minimal reduction in diffusing capacity suggesting some disease at the capillary alveolar level as well Compared to PFTs performed in January 2017, current study is essentially unchanged
== END ==
PROVIDERS: PCP Family Medicine; Referring Provider Family Medicine; Visit Provider Family Medicine
DX: R06.02 Shortness of breath (principal); J98.8 Other specified respiratory disorders
CPT/HCPCS: 94060; 94726; 94729

== ENCOUNTER → 2020-05-14 07:07 | Outpatient (CLI) | payer OTHER, SELFPAY ==
[2020-05-14 08:14] LABS: Cholesterol 208 mg/dL (140-199); HDL Cholesterol 66 mg/dL (40-60); LDL Cholesterol Calculated 118 mg/dL (<100); Triglycerides 122 mg/dL (35-150)
== END ==
PROVIDERS: PCP Family Medicine; Referring Provider Internal Medicine Cardiovascular Disease; Visit Provider Internal Medicine Cardiovascular Disease
DX: E78.5 Hyperlipidemia, unspecified (principal)
CPT/HCPCS: 36415; 80061

== ENCOUNTER 2020-08-13 15:04 | Emergency (ER) | payer OTHER, SELFPAY ==
[2020-08-13 15:10] VITALS: BP 173/76; PULSE 90; RESP 16; TEMP 37; O2SAT 98; BMI 28.5
--- NOTE | 2020-08-13 15:14 | ED_ITS ---
HPI - Animal Bite General Chief Complaint: Animal Bite Stated Complaint: dog bite to right hand Time Seen by Provider: 08/13/20 15:06 Source: patient Mode of arrival: Ambulatory Limitations: no limitations History of Present Illness HPI narrative: Patient is a 75-year-old female who comes the emergency department for wound that she sustained when she was bit by a dog earlier today. She states she is unsure if it was her dog or her brother's dog. Apparently they were trying to separate the 2 dogs when she was bit. She does know that both of them are up-to-date on their immunizations. She sustained a bite to her right hand and also the left side of her neck that is superficial. She is in need of a tetanus shot. Related Data Home Medications Medication Instructions Recorded Confirmed aspirin 81 mg PO QDAY #0 08/12/16 03/04/20 tadalafil 10 mg tablet 10 mg PO DAILY 03/04/20 03/04/20 Previous Rx's Medication Instructions Recorded warfarin 7.5 mg tablet See Rx Instructions .ROUTE 02/27/20 .COMPLEX #103 tablet omeprazole 40 mg capsule,delayed See Rx Instructions .ROUTE 04/16/20 release .COMPLEX #90 cap fluoxetine 10 mg capsule 30 mg PO DAILY #90 cap 06/19/20 metoprolol succinate 50 mg See Rx Instructions .ROUTE 07/29/20 tablet,extended release 24 hr .COMPLEX #90 tab amoxicillin-pot clavulanate 1 tab PO Q12H 7 Days #14 tab 08/13/20 [Augmentin] Allergies Allergy/AdvReac Type Severity Reaction Status Date / Time mometasone furoate Allergy Severe ANAPHYLAXIS Verified 12/04/19 11:01 [MOMETASONE FUROATE] adhesive [ADHESIVE] Allergy Mild LOCAL Verified 12/04/19 11:01 HIVES,BLISTERS diclofenac [From VOLTAREN] Allergy Mild HIVES Verified 12/04/19 11:01 latex [LATEX] Allergy Mild HIVES,BLIST Verified 12/04/19 11:01 ERS adhesive tape [ADHESIVE TAPE] Allergy Unknown Verified 12/04/19 11:01 ezetimibe [EZETIMIBE] Allergy Unknown Verified 12/04/19 11:01 sulfite Allergy Unknown Verified 12/04/19 11:01 codeine [CODEINE] AdvReac Mild HALLUCINATI Verified 12/04/19 11:01 ONS gluten [GLUTEN] AdvReac Mild IMMEDIATE Verified 12/04/19 11:01 DIARRHEA morphine [MORPHINE] AdvReac Mild HALLUCINATI Verified 12/04/19 11:01 ONS simvastatin [SIMVASTATIN] AdvReac Mild MYALGIAS Verified 12/04/19 11:01 soy AdvReac Mild SOY MILK - Verified 12/04/19 11:01 UPSET STOMACH Xkolifa-Rly-Nte Reductase AdvReac Mild MYALGIAS Verified 12/04/19 11:01 Inhibitor [[id number] REDUCTASE INHIBITOR] Milk Containing Products AdvReac Unknown CRAMPING,DRINKS Verified 12/04/19 11:01 [MILK CONTAINING PRODUCTS] ALMOND MILK Review of Systems Musculoskeletal Comments: Pain to the right hand Integumentary/Breasts Comments: Dog bite to right hand left-sided neck Hematologic/Lymphatic On Anticoagulants: Yes Patient History Medical History Abnormal Pap smear of cervix Allergy to casein Anxiety (~1979) Carpal tunnel syndrome (~1987) Chickenpox Class 1 obesity (08/20/14) Depression (~1966) Fibromyalgia Foot pain (~2007) Fracture (~2007) GERD (gastroesophageal reflux disease) (~2008) Heavy menstrual period (~1994) History of recurrent ear infection Hyperlipidemia Hypertension IBS (irritable bowel syndrome) (~2014) Measles (~1951) Migraines (~1959) Mumps Osteoarthritis (~1999) Osteopenia (~1997) Pulmonary hypertension Rheumatic fever (~1953) Seasonal allergies Sinus tachycardia Urinary incontinence (~2002) Vision abnormalities Surgical History Anesthesia H/O mitral valve replacement Status post appendectomy (~1980) Status post bunionectomy (~2010) Status post colonoscopy (~2006) Surgical procedure planned (~1996) Family History Brother Age: 61 Hypertension High cholesterol Child Age: 49 Mental health problem Father High cholesterol Heart attack Social History Smoking Status: Never smoker alcohol intake: current substance use type: does not use Smoking Status: Never smoker alcohol intake frequency: holidays/special occasions only Substance Use Type: does not use Exam Initial Vital Signs Initial Vital Signs: Vital Signs Temperature 98.6 F 08/13/20 15:10 Pulse Rate 90 08/13/20 15:10 Respiratory Rate 16 08/13/20 15:10 Blood Pressure 173/76 H 08/13/20 15:10 Pulse Oximetry 98 08/13/20 15:10 Const General: cooperative and comfortable Limitations: mental status not altered [facility] Head: normal to inspection and normocephalic Cardio Pulses: radial pulses present Skin Other: Patient with 2 linear cuts to the thenar eminence on the palmar side. Also has 2 puncture wounds the dorsum of the hand at the base of the thumb. Is also superficial abrasions to the left side of the neck. Extrem General: capillary refill normal Other: Full range of motion of wrist. Psych Appearance: well kempt Procedures Laceration Repair Laceration 1: Site: hand Side (If applicable): right Size (cm): 1.5 Description: linear Depth: simple, single layer Pre-repair: irrigated extensively Skin layer closed with: steri-strips Laceration 2: Site: hand Side (If applicable): right Size (cm): 0.5 Description: linear Pre-repair: irrigated extensively Skin layer closed with: steri-strips Course Orders Ordered: ED Orders 08/13/20 15:12 XR hand RT min 3V Stat Discontinued Medications Diphtheria/Tetanus/Acell Pertussis (Tet,Diph,Pertuss(Acell),Vac/Pf 0.5 Ml Syringe) 0.5 ml IM .ONCE ONE Stop: 08/13/20 15:11 Last Admin: 08/13/20 15:15 Dose: 0.5 ml Documented by: Vital Signs Vital signs: Vital Signs - 8 hr 08/13/20 15:10 Temperature 98.6 F Pulse Rate 90 Respiratory Rate 16 Blood Pressure 173/76 H Pulse Oximetry 98 MDM - Animal Bite Imaging Data Extremity x-ray #1: Radiologist's Impression: [address] [id number] ReportSigned Patient: Arleen Amador KMR#: [id number]: 7Acct:[id number]/Sex: 75 / FDate of Service: 08/13/20Loc: EDAccession Number: [id number] Procedure: XR hand RT min 3V Ordering Provider: Ant Sesay D.O. PROCEDURE: XR HAND RT MIN 3V INDICATIONS: dog bite around thumb TECHNIQUE: 3 views of the hand(s) acquired. COMPARISON: [facility], , HAND 3V LEFT, 10/09/2013, 15:07. FINDINGS: Bones: No fractures or dislocations. No foreign body seen. Carpal bones are normally aligned. No suspicious bony lesions. There is moderately severe to severe distal interphalangeal joint osteoarthritic change most pronounced at the 2nd and 3rd digits. Soft tissues: No suspicious soft tissue calcifications. IMPRESSION: No fracture or foreign body seen, moderately severe to severe osteoarthritis as noted. Dictated by: Judah Lugo M.D. on 08/13/2020 at 14:32 Approved by: Judah Lugo M.D. on 08/13/2020 at 14:33 MDM Narrative Medical decision making narrative: Patient is neurovascular intact. X-ray showed no signs of foreign body. Her right hand wounds were irrigated extensively. There were no deep structure involvement. They were loosely closed with Steri-Strips. Given the location will start on antibiotics. Her tetanus was also updated. She was given return precautions and follow-up instru ctions. She expressed understanding and agreement. Discharge Plan Departure Patient Disposition: Home Clinical Impression: Dog bite, Bite by animal Instructions: DI for Animal Bites Activity Restrictions/Additional Instructions: You can shower like normal in take all of your medications like normal. Start taking the antibiotics as directed. Return to the emergency department for any new or worsening symptoms Prescriptions: New amoxicillin-pot clavulanate [Augmentin] 875-125 mg tablet 1 tab PO Q12H 7 Days Qty: 14 RF: 0 No Action aspirin 81 MG tablet,delayed release (DR/EC) 81 mg PO QDAY Qty: 0 RF: 0 omeprazole 40 mg capsule,delayed release(DR/EC) See Rx Instructions .ROUTE .COMPLEX Qty: 90 RF: 1 fluoxetine 10 mg capsule 30 mg PO DAILY Qty: 90 RF: 1 metoprolol succinate 50 mg tablet extended release 24 hr See Rx Instructions .ROUTE .COMPLEX Qty: 90 RF: 0 tadalafil [Cialis] 10 mg tablet 10 mg PO DAILY RF: 0 warfarin 7.5 mg tablet See Rx Instructions .ROUTE .COMPLEX Qty: 103 RF: 3 Referrals: Kinsey Espinoza DO [Primary Care Provider] -
[2020-08-13] MEDS: TET,DIPH,PERTUSS(ACELL),VAC/PF 0.5 ML SYRINGE IM (15:15)
== END 2020-08-13 15:59 | disposition home or self-care (01) ==
PROVIDERS: Emergency Provider Emergency Medicine; PCP Family Medicine
DX: S61.451A Open bite of right hand, initial encounter (principal); W54.0XXA Bitten by dog, initial encounter; Z23 Encounter for immunization
CPT/HCPCS: 73130; 90471; 99283; 90715

== ENCOUNTER → 2020-10-30 09:57 | Outpatient (CLI) | payer OTHER, SELFPAY | PROVIDERS: PCP Family Medicine; Visit Provider Nurse Practitioner | DX: N34.3 Urethral syndrome, unspecified (principal) | CPT/HCPCS: 87077; 87086; 87186 ==

== ENCOUNTER → 2020-11-25 09:39 | Outpatient (CLI) | payer OTHER, SELFPAY ==
--- NOTE | 2020-12-24 08:03 | P.HOLT.S_ITS ---
[employer] Report Referral & Results Date Patient Seen: 11/25/20 Requesting provider: Kinsey Espinoza Indication: Other specified cardiac dysrhythmia Duration of monitoring (days): 14 Diary information: There were 19 patient triggered events and 1 patient diary entry Patient triggered events were associated with (within 45 seconds) sinus rhythm and PVCs Patient diary event was associated with sinus rhythm only Data: Minimum heart rate identified was 53 beats per minute at 01:36 on 11/27/2020 Maximum sinus heart rate was 111 beats per minute at 09:55 on 12/06/2020 Maximum overall heart rate was 150 beats per minute at 18:03 on 11/27/2020 during a 4 beat run of SVT/atrial tachycardia Less than 1% of identified beats were ventricular or supraventricular ectopic in origin, which would classify them as rare. There were 15 runs of SVT/atrial tachycardia the fastest being the 4 beat run above the longest lasting 9 beats at a rate of 96 beats per minute which suggest more atrial tachycardia than true SVT Impression: Essentially normal 14 day night monitor. Very rare very brief runs of SVT identified Patient reported symptoms may be associated with PVCs based on patient events although overall PVCs were rare in frequency Clinical correlation suggested
== END ==
PROVIDERS: PCP Family Medicine; Referring Provider Family Medicine; Visit Provider Family Medicine
DX: I49.8 Other specified cardiac arrhythmias (principal)
CPT/HCPCS: 93246; 93248

== ENCOUNTER → 2021-01-11 10:57 | Outpatient (CLI) | payer OTHER, SELFPAY ==
--- NOTE | 2021-01-11 10:58 | DI.MG.S_ITS ---
BILATERAL DIGITAL SCREENING MAMMOGRAM 3D/2D WITH CAD: 01/11/2021 CLINICAL: Routine screening. Family history of breast cancer. Comparison is made to exams dated: 01/11/2020 mammogram, 01/31/2018 mammogram, and 09/14/2016 mammogram - [facility]. There are scattered fibroglandular elements in both breasts. Current study was also evaluated with a Computer Aided Detection (CAD) system. No significant masses, calcifications, or other findings are seen in either breast. There has been no significant interval change. IMPRESSION: NEGATIVE There is no mammographic evidence of malignancy. A 1 year screening mammogram is recommended. This exam was interpreted at Station ID: [id number]. NOTE: For mammograms, a report in lay terms will be sent to the patient. Approximately 15% of breast malignancies will not be visualized mammographically. In the management of a palpable breast mass, a negative mammogram must not discourage biopsy of a clinically suspicious lesion. Electronically Signed By: Zeke wagner/kirby:01/13/2021 09:05:34 letter sent: Normal Exam ACR BI-RADS Category 1: Negative [id number]
== END ==
PROVIDERS: PCP Family Medicine; Referring Provider Family Medicine; Visit Provider Family Medicine
DX: Z12.31 Encounter for screening mammogram for malignant neoplasm of breast (principal); Z80.3 Family history of malignant neoplasm of breast
CPT/HCPCS: 77063; 77067

== ENCOUNTER → 2021-01-30 07:46 | Outpatient (CLI) | payer OTHER, SELFPAY ==
[2021-01-30 08:25] LABS: INR 2.4 (0.9-1.3)
== END ==
PROVIDERS: PCP Family Medicine; Referring Provider Family Medicine; Visit Provider Family Medicine
DX: Z79.01 Long term (current) use of anticoagulants (principal)
CPT/HCPCS: 36415; 85610

== ENCOUNTER → 2021-03-19 11:22 | Outpatient (CLI) | payer MEDICARE, SELFPAY ==
--- NOTE | 2021-03-19 11:23 | DI.RAD.S_ITS ---
PROCEDURE: XR KNEE LT 3V INDICATIONS: left knee pain, fall TECHNIQUE: 3 views of the knee were acquired. COMPARISON: [facility], , KNEE 1-2 VIEWS RIGHT, 03/02/2016, 11:01. [facility], , KNEE 3V LEFT, 02/23/2013, 9:32. FINDINGS: Bones: Left medial compartment hemiarthroplasty. No fractures or dislocations. No suspicious bony lesions. Soft tissues: No joint effusion. No suspicious soft tissue calcifications. IMPRESSION: No fracture. Left medial compartment hemiarthroplasty. Dictated by: Santino Thakur M.D. on 03/19/2021 at 15:22 Approved by: Santino Thakur M.D. on 03/19/2021 at 15:23
== END ==
PROVIDERS: PCP Family Medicine; Referring Provider Nurse Practitioner Family; Visit Provider Nurse Practitioner Family
DX: S89.92XA Unspecified injury of left lower leg, initial encounter (principal); X58.XXXA Exposure to other specified factors, initial encounter
CPT/HCPCS: 73562

== ENCOUNTER → 2021-04-24 08:00 | Outpatient (CLI) | payer MEDICARE, SELFPAY ==
[2021-04-24 10:35] LABS: INR 3.2 (0.9-1.3); Prothrombin Time 36.2 SECONDS (10.1-12.7)
== END ==
PROVIDERS: PCP Family Medicine; Referring Provider Family Medicine; Visit Provider Family Medicine
DX: Z79.01 Long term (current) use of anticoagulants (principal)
CPT/HCPCS: 36415; 85610

== ENCOUNTER → 2021-05-14 07:21 | Outpatient (CLI) | payer MEDICARE, SELFPAY ==
[2021-05-14 08:41] LABS: Cholesterol 310 mg/dL (140-199); HDL Cholesterol 67 mg/dL (40-60); LDL Cholesterol Calculated 214 mg/dL (<100); Triglycerides 145 mg/dL (35-150)
== END ==
PROVIDERS: PCP Family Medicine; Referring Provider Internal Medicine Cardiovascular Disease; Visit Provider Internal Medicine Cardiovascular Disease
DX: E78.5 Hyperlipidemia, unspecified (principal)
CPT/HCPCS: 36415; 80061

== ENCOUNTER 2021-06-23 09:35 | Observation (INO) | payer MEDICARE, SELFPAY ==
[2021-06-23] VITALS (11 sets, daily range): BP systolic 134–190; BP diastolic 68–94; PULSE 81–105; RESP 10–22; TEMP 36.3–37.2; O2SAT 95–99; BMI 29.5
--- NOTE | 2021-06-23 09:47 | DI.RAD.S_ITS ---
PROCEDURE: XR CHEST 1V INDICATIONS: chest pain TECHNIQUE: One view of the chest was acquired. COMPARISON: [facility], CR, XR CHEST 1V, 11/30/2019, 9:48. FINDINGS: Surgical changes and devices: Midline sternotomy wires, valve prosthesis Lungs and pleura: Lungs are clear. Mild chronic interstitial prominence. No pleural effusions or pneumothorax. Mediastinum: Mediastinal contours appear normal. Heart size is normal. Bones and chest wall: No suspicious bony lesions. Overlying soft tissues appear unremarkable. IMPRESSION: Mild chronic interstitial prominence. Dictated by: Dominguez Steel M.D. on 06/23/2021 at 10:22 Approved by: Dominguez Steel M.D. on 06/23/2021 at 10:23
--- NOTE | 2021-06-23 10:04 | ED_ITS ---
HPI - Chest Pain General Chief Complaint: Chest Pain Stated Complaint: Chest pain since last night/ rt arm pain, dizzy Time Seen by Provider: 06/23/21 09:39 History of Present Illness HPI narrative: 75-year-old female nonsmoker with a history of hyperlipidemia, mitral valve dz and chronic dyspnea on exertion presents for evaluation of chest pain. She states that she was awoken this morning at about 4:00 a.m. with a bandlike chest pain primarily on the right side of her chest with radiation into her right arm. She denies any obvious provocation or palliation. She admits to associated symptoms such as dizziness and lightheadedness as well as nausea but denies vomiting. She has had no unexplained diaphoresis. She denies any obvious exertional component. She denies any change in her ability to tolerate exercise, stating that she is routinely short of breath with relatively minimal exertion. She denies recent travel, history of blood clots nor fever or chills. Related Data Home Medications Medication Instructions Recorded Confirmed aspirin 81 mg tablet,delayed 81 mg PO QDAY #0 08/12/16 06/23/21 release tadalafil 10 mg tablet (Cialis) 20 mg PO DAILY 03/04/20 06/23/21 gabapentin 100 mg capsule 300 mg PO PRN PRN 06/23/21 06/23/21 metoprolol succinate 50 mg 50 mg PO AC 06/23/21 06/23/21 tablet,extended release 24 hr Previous Rx's Medication Instructions Recorded omeprazole 40 mg capsule,delayed See Rx Instructions .ROUTE 10/11/20 release .COMPLEX #90 cap warfarin 7.5 mg tablet See Rx Instructions .ROUTE 05/06/21 .COMPLEX #110 tab Allergies Allergy/AdvReac Type Severity Reaction Status Date / Time mometasone furoate Allergy Severe ANAPHYLAXIS Verified 06/23/21 10:01 [MOMETASONE FUROATE] adhesive [ADHESIVE] Allergy Mild LOCAL Verified 06/23/21 10:01 HIVES,BLISTERS diclofenac [From VOLTAREN] Allergy Mild HIVES Verified 06/23/21 10:01 latex [LATEX] Allergy Mild HIVES,BLIST Verified 06/23/21 10:01 ERS adhesive tape [ADHESIVE TAPE] Allergy Unknown Verified 06/23/21 10:01 ezetimibe [EZETIMIBE] Allergy Unknown Verified 06/23/21 10:01 sulfite Allergy Unknown Verified 06/23/21 10:01 codeine [CODEINE] AdvReac Mild HALLUCINATI Verified 06/23/21 10:01 ONS gluten [GLUTEN] AdvReac Mild IMMEDIATE Verified 06/23/21 10:01 DIARRHEA morphine [MORPHINE] AdvReac Mild HALLUCINATI Verified 06/23/21 10:01 ONS simvastatin [SIMVASTATIN] AdvReac Mild MYALGIAS Verified 06/23/21 10:01 soy AdvReac Mild SOY MILK - Verified 06/23/21 10:01 UPSET STOMACH Wbivzda-RSK-ZlT Reductase AdvReac Mild MYALGIAS Verified 06/23/21 10:01 Inhibitor [[id number] REDUCTASE INHIBITOR] Milk Containing Products AdvReac Unknown CRAMPING,DRINKS Verified 06/23/21 10:01 [MILK CONTAINING PRODUCTS] ALMOND MILK Review of Systems Review of Systems Narrative: GENERAL: See HPI HEENT: Denies sinus pain, ear pain, sore throat, difficulty swallowing, dizziness. RESPIRATORY: Denies dyspnea, cough, wheezing, hemoptysis, sputum. CARDIOVASCULAR: See HPI GASTROINTESTINAL: Denies nausea, vomiting, abdominal pain, diarrhea, constipation, melena. : Denies dysuria, frequency, incontinence, hematuria, urinary retention. MUSCULOSKELETAL: denies weakness, joint pain, or bony pain SKIN: Denies rash, skin lesions, or other NEUROLOGIC: Denies weakness, headache, numbness, change in speech, confusion, seizures, incoordination. PSYCHIATRIC: No concerning psychosocial issues. 12 point review of systems is negative except for those stated above Patient History Medical History Abnormal Pap smear of cervix Allergy to casein Anxiety (~1979) Carpal tunnel syndrome (~1987) Chickenpox Class 1 obesity (08/20/14) Depression (~1966) Fibromyalgia Foot pain (~2007) Fracture (~2007) GERD (gastroesophageal reflux disease) (~2008) Heavy menstrual period (~1994) History of recurrent ear infection Hyperlipidemia Hypertension IBS (irritable bowel syndrome) (~2014) Measles (~1951) Migraines (~1959) Mumps Osteoarthritis (~1999) Osteopenia (~1997) Pulmonary hypertension Rheumatic fever (~1953) Seasonal allergies Sinus tachycardia Urinary incontinence (~2002) Vision abnormalities Surgical History Anesthesia H/O mitral valve replacement Status post appendectomy (~1980) Status post bunionectomy (~2010) Status post colonoscopy (~2006) Surgical procedure planned (~1996) Family History Brother Age: 62 Hypertension High cholesterol Child Age: 50 Mental health problem Father High cholesterol Heart attack Social History household members: spouse Smoking Status: Never smoker alcohol intake: current substance use type: does not use Smoking Status: Never smoker alcohol intake frequency: holidays/special occasions only Substance Use Type: does not use Exam Narrative Exam Narrative: GENERAL: [76] year old patient appears stated age. Well-developed patient, in mild distress. HEAD: Atraumatic. Normocephalic. EYES: Pupils equal round and reactive. Extraocular motions intact. No scleral icterus. No injection or drainage. ENT: Nose without bleeding, purulent drainage. Throat without erythema, tonsillar hypertrophy or exudate. Airway patent. NECK: Trachea midline. Non tender CARDIOVASCULAR: Regular rate and rhythm without murmurs, gallops, or rubs. RESPIRATORY: Clear to auscultation. Breath sounds equal bilaterally. No wheezes, rales, or rhonchi. GASTROINTESTINAL: Abdomen soft, non-tender, nondistended. EXTREMITIES: No edema or joint tenderness. BACK: Nontender without deformity or crepitance. No flank tenderness. NEURO: AOx3. SKIN: No rash or erythema of visible areas Initial Vital Signs Initial Vital Signs: Vital Signs Pulse Rate 96 H 06/23/21 09:49 Pulse Oximetry 99 06/23/21 09:49 Course Orders Ordered: Acetaminophen (Acetaminophen 325 Mg Tablet) 975 mg PO Q8HR PRN PRN Reason: Pain, Mild (1-3) Aspirin (Aspirin Ec 81 Mg Tablet) 81 mg PO DAILY HENRRY Gabapentin (Gabapentin 100 Mg Capsule) 300 mg PO BEDTIME PRN PRN Reason: NEUROPATHY Naloxone HCl (Naloxone 0.4 Mg/Ml Vial) 0.2 mg IV Q2MIN PRN PRN Reason: Opiate Reversal Nitroglycerin (Nitroglycerin 0.4 Mg Sl Tab) 0.4 mg SL [id number] PRN PRN Reason: Chest Pain Tadalafil [Cialis] (10 Mg Tablet) 20 mg PO DAILY [facility] Ondansetron HCl (Ondansetron 4 Mg/2 Ml Inj) 4 mg IV Q8HR PRN PRN Reason: Nausea And Vomiting Pantoprazole Sodium (Pantoprazole Dr 40 Mg Tablet) 40 mg PO 0700 [facility] Last Admin: 06/24/21 06:22 Dose: 40 mg Documented by: LORRAINE Warfarin Sodium (Warfarin 5 Mg Tablet) 7.5 mg PO [email or web address] [facility] Warfarin Sodium (Warfarin 5 Mg Tablet) 11.25 mg PO [email or web address]@1700 [facility] Last Admin: 06/23/21 18:02 Dose: 11.25 mg Documented by: EMPERATRIZ Discontinued Medications Aspirin (Aspirin 81 Mg Chew Tab) 324 mg PO NOW ONE Stop: 06/23/21 10:05 Last Admin: 06/23/21 10:15 Dose: 324 mg Documented by: BALJINDER Metoprolol Succinate (Metoprolol Er 50 Mg Tablet) 50 mg PO [facility] Nitroglycerin (Nitroglycerin 0.4 Mg Sl Tab) 0.4 mg SL [id number] PRN PRN Reason: Chest Pain Last Admin: 06/23/21 10:13 Dose: 0.4 mg Documented by: BALJINDER Reevaluation(s) Reevaluation #1: Pain resolved after above-stated therapies Vital Signs Vital signs: Vital Signs - 8 hr 06/23/21 10:01 06/23/21 10:13 Temperature 98.4 F Pulse Rate 85 Respiratory Rate 18 Blood Pressure 180/90 H 190/80 H Pulse Oximetry 99 MDM - Chest Pain Lab Data Result diagrams: 06/23/21 09:55 06/23/21 09:55 Labs: Lab Results 06/23/21 06/23/21 06/23/21 Range/Units 09:55 09:55 09:55 WBC 4.0 L (4.5-11.0) X10^3/uL RBC 4.23 (4.0-5.2) X10^6/uL Hgb 13.1 (12.0-16.0) g/dL Hct 39.1 (36-46) % MCV 92.4 (80-100) fL MCH 31.0 (26-34) PG MCHC 33.6 (30-36) % RDW 13.7 (11.6-14.8) % Plt Count 173 (150-400) X10^3/uL Neut % (Auto) 55.3 (50-75) % Lymph % (Auto) 27.6 (25-40) % [place] % (Auto) 12.6 (3-14) % Eos % (Auto) 3.7 (2-4) % Baso % (Auto) 0.8 (0-2) % Neut # (Auto) 2200 (1012-0684) /uL Lymph # (Auto) 1100 (8330-8102) /uL [place] # (Auto) 500 (0-900) /uL Eos # (Auto) 100 (0-450) /uL Baso # (Auto) 0 (0-100) /uL PT 38.1 H (10.1-12.7) SECONDS INR 3.3 H (0.9-1.3) APTT 57 H (26.4-36.2) SECONDS Sodium 137 (137-145) mmol/L Potassium 4.2 (3.4-5.1) mmol/L Chloride 104 (98-107) mmol/L Carbon Dioxide 29 (22-32) mmol/L BUN 12 (7-17) mg/dL Creatinine 0.69 (0.52-1.04) mg/dL Estimated GFR > 60.0 (>60) mL/min BUN/Creatinine Ratio 17.4 (6-22) Glucose 89 (80-110) mg/dL Calcium 9.2 (8.4-10.2) mg/dL Magnesium 1.8 (1.6-2.3) mg/dL Total Bilirubin 0.6 (0.2-1.3) mg/dL AST 31 (14-36) IU/L ALT 19 (<35) IU/L Alkaline Phosphatase 70 (38-126) U/L Total Creatine Kinase 90 (30-135) U/L CK-MB (CK-2) TNP CK-MB (CK-2) Rel Index TNP Troponin I < 0.012 (0.01-0.034) ng/mL NT-Pro-B Natriuret Pep (<125) pg/mL Total Protein 7.6 (6.3-8.2) g/dL Albumin 4.4 (3.5-5.0) g/dL Globulin 3.2 (1.7-4.1) g/dL Albumin/Globulin Ratio 1.4 (1.0-2.8) Lipase 127 (23-300) U/L 06/23/21 Range/Units 09:55 WBC (4.5-11.0) X10^3/uL RBC (4.0-5.2) X10^6/uL Hgb (12.0-16.0) g/dL Hct (36-46) % MCV (80-100) fL MCH (26-34) PG MCHC (30-36) % RDW (11.6-14.8) % Plt Count (150-400) X10^3/uL Neut % (Auto) (50-75) % Lymph % (Auto) (25-40) % [place] % (Auto) (3-14) % Eos % (Auto) (2-4) % Baso % (Auto) (0-2) % Neut # (Auto) (8225-6783) /uL Lymph # (Auto) (8694-6512) /uL [place] # (Auto) (0-900) /uL Eos # (Auto) (0-450) /uL Baso # (Auto) (0-100) /uL PT (10.1-12.7) SECONDS INR (0.9-1.3) APTT (26.4-36.2) SECONDS Sodium (137-145) mmol/L Potassium (3.4-5.1) mmol/L Chloride (98-107) mmol/L Carbon Dioxide (22-32) mmol/L BUN (7-17) mg/dL Creatinine (0.52-1.04) mg/dL Estimated GFR (>60) mL/min BUN/Creatinine Ratio (6-22) Glucose (80-110) mg/dL Calcium (8.4-10.2) mg/dL Magnesium (1.6-2.3) mg/dL Total Bilirubin (0.2-1.3) mg/dL AST (14-36) IU/L ALT (<35) IU/L Alkaline Phosphatase (38-126) U/L Total Creatine Kinase (30-135) U/L CK-MB (CK-2) CK-MB (CK-2) Rel Index Troponin I (0.01-0.034) ng/mL NT-Pro-B Natriuret Pep 317 H (<125) pg/mL Total Protein (6.3-8.2) g/dL Albumin (3.5-5.0) g/dL Globulin (1.7-4.1) g/dL Albumin/Globulin Ratio (1.0-2.8) Lipase (23-300) U/L Discharge Plan Departure Patient Disposition: Admitted as Observation Clinical Impression: Chest pain Admit Date/Time: 06/23/21 11:57 Admit Provider: Sylvester Esteban
[2021-06-23 10:07] LABS: Add Manual Diff / Slide Review NO; Basophils Absolute Auto 0 /uL (0-100); Basophils Percent Auto 0.8 % (0-2); Eosinophils Absolute Auto 100 /uL (0-450); Eosinophils Percent Auto 3.7 % (2-4); Hematocrit 39.1 % (36-46); Hemoglobin 13.1 g/dL (12.0-16.0); Lymphocytes Absolute Auto 1100 /uL (1100-4500); Lymphocytes Percent Auto 27.6 % (25-40); Mean Corpuscular HGB Conc 33.6 % (30-36); Mean Corpuscular Volume 92.4 fL (80-100); Monocytes Absolute Auto 500 /uL (0-900); Monocytes Percent Auto 12.6 % (3-14); Neutrophils Absolute Auto 2200 /uL (1500-7000); Neutrophils Percent Auto 55.3 % (50-75); Platelet Count 173 X10^3/uL (150-400); Red Blood Cell Count 4.23 X10^6/uL (4.0-5.2); Red Cell Distribution Width 13.7 % (11.6-14.8)
[2021-06-23 10:12] LABS: INR 3.3 (0.9-1.3); Prothrombin Time 38.1 SECONDS (10.1-12.7)
[2021-06-23] MEDS: NITROGLYCERIN 0.4 MG SL TAB SL (10:13)
[2021-06-23 10:15] LABS: PTT Partial Thromboplastin Tim 57 SECONDS (26.4-36.2)
[2021-06-23] MEDS: ASPIRIN 81 MG CHEW TAB 324 MG PO (10:15)
[2021-06-23 10:18] LABS: Alanine Aminotransferase 19 IU/L (<35); Albumin 4.4 g/dL (3.5-5.0); Albumin Globulin Ratio 1.4 (1.0-2.8); Alkaline Phosphatase 70 U/L (38-126); Aspartate Aminotransferase 31 IU/L (14-36); BUN Creatinine Ratio 17.4 (6-22); Bilirubin Total 0.6 mg/dL (0.2-1.3); Blood Urea Nitrogen 12 mg/dL (7-17); Calcium 9.2 mg/dL (8.4-10.2); Carbon Dioxide 29 mmol/L (22-32); Chloride 104 mmol/L (98-107); Creatine Kinase 90 U/L (30-135); Estimated Glomerular Filt Rate > 60.0 mL/min (>60); Globulin 3.2 g/dL (1.7-4.1); Glucose 89 mg/dL (80-110); HEMOLYSIS < 15 (0-50); Lipase 127 U/L (23-300); Magnesium 1.8 mg/dL (1.6-2.3); Potassium 4.2 mmol/L (3.4-5.1); Sodium 137 mmol/L (137-145); Total Protein 7.6 g/dL (6.3-8.2)
[2021-06-23 10:26] LABS: NT-proBNP (BNP-Adult 18+) 317 pg/mL (<125)
[2021-06-23 10:28] LABS: Troponin I < 0.012 ng/mL (0.01-0.034)
[2021-06-23 13:05] LABS: COVID19 -Nasal RAPID Negative (Negative)
--- NOTE | 2021-06-23 14:27 | DI.ECHO.S_ITS ---
[facility] +---------+ : : [address] : : : : [id number] : : : : Phone: [phone]+ Echocardiogram Report + + :Name: JEFF PUGH Study Date: 06/23/2021 Height: 61 in : :[facility] ReadingLocation: Weight: 156 lb: : Gender: Female BSA: 1.7 m2 : :: 1945 Age: 75 yrs : :Reason For Study: SOB : :Ordering Physician: CAITLYN, : :SWAPNIL DAILEY Performed By: Wm Servin : :Referring: SWAPNIL BRADY : + + Interpretation Summary The left ventricle is normal in size. The ejection fraction is estimated to be 65-70%. The right ventricle is normal size. Right ventricular systolic function is mildly reduced. There has been no significant change in RV function since the previous study. There is a mechanical mitral valve. The mitral valve mean gradient is 5 mmHg. The peak E wave velocity across mitral valve 1.47 m/s. In August 2014, it was 1.89 m/s. No significant mitral regurgitation. There is mild aortic regurgitation. Compared to the prior echo study, there has been no change in the severity of aortic regurgitation. There is mild tricuspid regurgitation. Compared to the prior echo exam, there has been no change in TR severity. The right ventricular systolic pressure is estimated to be at least 31 mmHg based on an estimated right atrial pressure of 3 mm Hg. Compared to the prior echo exam, there has been a decrease in the severity of pulmonary hypertension. Procedure: A two-dimensional transthoracic echocardiogram with color flow and Doppler was performed. The study quality was technically adequate. Comparison is made with the echocardiogram of 08/27/2014. Rhythm not clear. Left Ventricle: The left ventricle is normal in size. Proximal septal thickening is noted. There is no thrombus. A false chord is noted (normal variant). Left ventricular systolic function is normal. The ejection fraction is estimated to be 65-70%. There are no focal wall motion abnormalities. Diastolic function could not be accurately assessed due to confounding valvular disease. Right Ventricle: The right ventricle is normal size. Right ventricular systolic function is mildly reduced. There has been no significant change since the previous study. Atria: The left atrium is not well visualized. The right atrium is normal in size. The interatrial septum grossly appears intact with no obvious evidence for an atrial septal defect. Mitral Valve: There is a mechanical mitral valve. The prosthetic mitral valve is not well visualized. The mitral valve mean gradient is 5 mmHg. The peak E wave velocity across mitral valve 1.47 m/s. In August 2014, it was 1.89 m/s. There is no mitral regurgitation noted. Aortic Valve: There is mild aortic valve sclerosis. The aortic valve is trileaflet. There is no aortic valve stenosis. There is mild aortic regurgitation. Compared to the prior echo study, there has been no change in the severity of aortic regurgitation. Tricuspid Valve: The tricuspid valve is normal in structure and function. There is mild tricuspid regurgitation. The right ventricular systolic pressure is estimated to be at least 31 mmHg based on an estimated right atrial pressure of 3 mm Hg. Compared to the prior echo exam, there has been a decrease in the severity of pulmonary hypertension. Compared to the prior echo exam, there has been no change in TR severity. Pulmonic Valve: The pulmonic valve is normal in structure and function. There is trace pulmonic regurgitation. Great Vessels: The aortic root is normal size. The dimensions of the ascending aorta are normal. The IVC is of normal diameter and collapses greater than 50% with a sniff. This suggests a low right atrial pressure of 3 mm Hg. Pericardium/ Pleura There is no pericardial effusion. There is no pleural effusion. MMode/2D Measurements & Calculations LVIDd: 4.6 cm LVOT diam: 2.1 cm LVIDs: 2.9 cm Ao root diam: 3.8 cm FS: 37.0 % asc Aorta Diam: 3.4 cm IVSd: 0.80 cm LVPWd: 0.90 cm LV ridley. diameter/BSA (cm/m^2): 2.7 LV sys. diameter/BSA (cm/m^2): 1.7 LA dimension: 3.5 cm RA long axis: 5.2 cm TAPSE_phl: 1.3 cm Doppler Measurements & Calculations Ao V2 max: 144.0 cm/sec LVOT Max Michael: 78.3 cm/sec Ao V2 mean: 91.0 cm/sec LV V1 max P.5 mmHg Ao max P.0 mmHg LV V1 VTI: 15.3 cm Ao mean P.0 mmHg HAMZAH(I,D): 2.2 cm2 Ao V2 VTI: 23.6 cm HAMZAH(V,D): 1.9 cm2 sev ratio: 0.65 HAMZAH indexed to BSA (cm^2/m^2): 1.3 MVA(VTI): 1.7 cm2 TR max michael: 263.0 cm/sec TR max P.7 mmHg MV V2 mean: 103.0 cm/sec SV(LVOT): 53.0 ml MV mean P.0 mmHg MV V2 VTI: 31.2 cm AV VR_phl: 0.54 HAMZAH(VTI)/BSA_phl: 1.3 Reading Physician:04:13 PM
--- NOTE | 2021-06-23 14:58 | PM.HP.1 ---
History of Present Illness History of Present Illness Date Patient Seen: 06/23/21 Time Patient Seen: 15:00 Chief complaint: Chest pain since last night/ rt arm pain, dizzy Narrative: This is a 75-year-old female with a past medical history of hyperlipidemia, prior rheumatic heart disease with mitral valve replacement in 2008 with chronic dyspnea on exertion who presented with abrupt onset of chest pain started this morning. Patient states that the pain is like a metal like band across her right chest with radiation into her right arm. This started at 4:00 a.m. and awoke her from sleep. It got slightly better so she went to volunteer at the [facility], but she became lightheaded and dizzy and did not feel right and then decided to come here. She had recurrence of her chest pressure, though it is not necessarily associated with exertion. She does not know of any provoking or palliative factors at this time. She also felt dizzy and nauseous when she had the pain. She denies any diaphoresis. She Denies any prior chest pain, nausea, vomiting, abdominal pain, dysuria, urinary frequency, lower extremity edema. She usually gets short of breath when going up any incline or stairs. She had an extensive evaluation with primary care and Cardiology including pulmonary function testing was unremarkable. Her chest pain was Relieved with nitroglycerin in the emergency room, and she now has a mild headache. The patient has known pulmonary hypertension per review of her cardiology records and does take todalafil. She states her last stress test was approximately 2 years ago. In the emergency room, the patient was mildly hypertensive but the remainder of her vital signs were unremarkable. Laboratory evaluation revealed an unremarkable CBC. Appropriate INR at 3.3 given her heart valve, and an unremarkable BMP. Troponin was negative, proBNP was mildly elevated at 317. COVID-19 testing was negative. Patient was admitted for further observation to rule out an acute coronary syndrome and evaluate further with stress testing. Patient History Medical History Abnormal Pap smear of cervix Allergy to casein Anxiety (~1979) Carpal tunnel syndrome (~1987) Chickenpox Class 1 obesity (08/20/14) Depression (~1966) Fibromyalgia Foot pain (~2007) Fracture (~2007) GERD (gastroesophageal reflux disease) (~2008) Heavy menstrual period (~1994) History of recurrent ear infection Hyperlipidemia Hypertension IBS (irritable bowel syndrome) (~2014) Measles (~1951) Migraines (~1959) Mumps Osteoarthritis (~1999) Osteopenia (~1997) Pulmonary hypertension Rheumatic fever (~1953) Seasonal allergies Sinus tachycardia Urinary incontinence (~2002) Vision abnormalities Surgical History Anesthesia H/O mitral valve replacement Status post appendectomy (~1980) Status post bunionectomy (~2010) Status post colonoscopy (~2006) Surgical procedure planned (~1996) Family & Social History Family History Brother Age: 62 Hypertension High cholesterol Child Age: 50 Mental health problem Father High cholesterol Heart attack Social History: household members spouse Prior Living Arrangements Apartment/Condo Safety & Behavioral: Feels Safe in Current Yes Environment Been Physically Hurt or No Threatened By a Person Suicidal Ideation Description None Tobacco & Substance use: Smoking Status Never smoker alcohol intake current alcohol intake frequency holiday/special occasion Substance Use Type does not use Meds Home Medications and Allergies Home Medications Medication Instructions Recorded Confirmed Type aspirin 81 mg tablet,delayed 81 mg PO QDAY #0 08/12/16 06/23/21 History release tadalafil 10 mg tablet (Cialis) 20 mg PO DAILY 03/04/20 06/23/21 History omeprazole 40 mg capsule,delayed See Rx Instructions .ROUTE 10/11/20 06/23/21 Rx release .COMPLEX #90 cap warfarin 7.5 mg tablet See Rx Instructions .ROUTE 05/06/21 06/23/21 Rx .COMPLEX #110 tab gabapentin 100 mg capsule 300 mg PO PRN PRN 06/23/21 06/23/21 History metoprolol succinate 50 mg 50 mg PO AC 06/23/21 06/23/21 History tablet,extended release 24 hr Allergies Allergy/AdvReac Type Severity Reaction Status Date / Time mometasone furoate Allergy Severe ANAPHYLAXIS Verified 06/23/21 10:01 [MOMETASONE FUROATE] adhesive [ADHESIVE] Allergy Mild LOCAL Verified 06/23/21 10:01 HIVES,BLISTERS diclofenac [From VOLTAREN] Allergy Mild HIVES Verified 06/23/21 10:01 latex [LATEX] Allergy Mild HIVES,BLIST Verified 06/23/21 10:01 ERS adhesive tape [ADHESIVE TAPE] Allergy Unknown Verified 06/23/21 10:01 ezetimibe [EZETIMIBE] Allergy Unknown Verified 06/23/21 10:01 sulfite Allergy Unknown Verified 06/23/21 10:01 codeine [CODEINE] AdvReac Mild HALLUCINATI Verified 06/23/21 10:01 ONS gluten [GLUTEN] AdvReac Mild IMMEDIATE Verified 06/23/21 10:01 DIARRHEA morphine [MORPHINE] AdvReac Mild HALLUCINATI Verified 06/23/21 10:01 ONS simvastatin [SIMVASTATIN] AdvReac Mild MYALGIAS Verified 06/23/21 10:01 soy AdvReac Mild SOY MILK - Verified 06/23/21 10:01 UPSET STOMACH Mkbkvrb-QHD-PqE Reductase AdvReac Mild MYALGIAS Verified 06/23/21 10:01 Inhibitor [NOLMPWO-FAP-YIY REDUCTASE INHIBITOR] Milk Containing Products AdvReac Unknown CRAMPING,DRINKS Verified 06/23/21 10:01 [MILK CONTAINING PRODUCTS] ALMOND MILK Review of Systems Review of Systems Narrative: All other systems reviewed with the patient and are negative unless otherwise stated. Exam Vital Signs (past 8 hours): - 06/23/21 09:49 06/23/21 09:50 06/23/21 10:00 Temperature Pulse Rate 96 H 91 H 86 Respiratory Rate 15 Blood Pressure 149/94 H Pulse Oximetry 99 98 99 06/23/21 10:01 06/23/21 10:13 06/23/21 10:30 Temperature 98.4 F Pulse Rate 85 88 Respiratory Rate 15 10 L Blood Pressure 190/80 H 190/80 H 134/68 Pulse Oximetry 98 97 06/23/21 14:06 Temperature 97.4 F L Pulse Rate 81 Respiratory Rate 17 Blood Pressure 151/78 H Pulse Oximetry 98 Oxygen Delivery Method Room Air Oxygen Flow Rate 0 Narrative Exam Narrative: General:? Patient is well developed and well nourished, in no distress at this time. HEENT:? Normocephalic, atraumatic, extraocular muscles intact, oral pharynx is clear and mucous membranes are moist. Neck: supple and symmetric, trachea is midline, no cervical adenopathy. Negative for JVD Chest:? Normal AP diameter and contour without kyphoscoliosis, no tachypnea, equal chest rise bilaterally. Lungs:?LLL rales, no rhonchi or wheezing. R lung is CTA. Cardio:?RRR, mechanical click without obvious murmur, rubs, gallops. Abdomen: S NT ND. No CVA tenderness. Musculoskeletal:? Muscle strength and tone are equal within normal limits, no deformity. Extremities: No edema or joint effusions. No cyanosis or clubbing. Skin:? Pale,? Warm to touch,dry and intact without rashes, ulcerations or petechiae.? Neuro:? Alert and orientated x3,? sensation to touch intact in all extremities, no gross deficits noted of cranial nerves. Psych:? Patient has a well-kept appearance, appropriate affect, mental status attitude thought context and judgment are appropriate for age. Objective ECG Impression: Normal sinus rhythm without any ST or T-wave abnormalities. Labs Result Diagrams: 06/23/21 09:55 06/23/21 09:55 Labs: Laboratory Results - last 24 hr 06/23/21 06/23/21 06/23/21 09:55 09:55 09:55 WBC 4.0 L RBC 4.23 Hgb 13.1 Hct 39.1 MCV 92.4 MCH 31.0 MCHC 33.6 RDW 13.7 Plt Count 173 Neut % (Auto) 55.3 Lymph % (Auto) 27.6 [place] % (Auto) 12.6 Eos % (Auto) 3.7 Baso % (Auto) 0.8 Neut # (Auto) 2200 Lymph # (Auto) 1100 [place] # (Auto) 500 Eos # (Auto) 100 Baso # (Auto) 0 PT 38.1 H INR 3.3 H APTT 57 H Sodium 137 Potassium 4.2 Chloride 104 Carbon Dioxide 29 BUN 12 Creatinine 0.69 Estimated GFR > 60.0 BUN/Creatinine Ratio 17.4 Glucose 89 Calcium 9.2 Magnesium 1.8 Total Bilirubin 0.6 AST 31 ALT 19 Alkaline Phosphatase 70 Total Creatine Kinase 90 CK-MB (CK-2) TNP CK-MB (CK-2) Rel Index TNP Troponin I < 0.012 NT-Pro-B Natriuret Pep Total Protein 7.6 Albumin 4.4 Globulin 3.2 Albumin/Globulin Ratio 1.4 Lipase 127 SARS-CoV-2 (PCR) 06/23/21 06/23/21 09:55 12:20 WBC RBC Hgb Hct MCV MCH MCHC RDW Plt Count Neut % (Auto) Lymph % (Auto) [place] % (Auto) Eos % (Auto) Baso % (Auto) Neut # (Auto) Lymph # (Auto) [place] # (Auto) Eos # (Auto) Baso # (Auto) PT INR APTT Sodium Potassium Chloride Carbon Dioxide BUN Creatinine Estimated GFR BUN/Creatinine Ratio Glucose Calcium Magnesium Total Bilirubin AST ALT Alkaline Phosphatase Total Creatine Kinase CK-MB (CK-2) CK-MB (CK-2) Rel Index Troponin I NT-Pro-B Natriuret Pep 317 H Total Protein Albumin Globulin Albumin/Globulin Ratio Lipase SARS-CoV-2 (PCR) Negative Assessment & Plan Assessment & Plan narrative: This is a 75-year-old female with a past medical history of hyperlipidemia, prior rheumatic heart disease with mitral valve replacement in 2008 with chronic dyspnea on exertion who presented with abrupt onset of chest pain started this morning. 1. Chest pain, acute, present on admission - concerning for possible ACS including NSTEMI or unstable angina symptoms as started at rest. Has chronic progressive dyspnea which was worsened during episode. - EKG without evidence of obvious ischemia, appears similar to prior tracings. - echo and stress testing have been ordered - check 8 hour troponin to rule out NSTEMI - further possible etiologies include but are not limited to GERD, musculoskeletal causes, or worsening valvular disease - continue home PPI 2. History of mitral valve replacement on warfarin - continue home warfarin - INR in range at 3.3. 3. HTN - hold home beta leyda in setting 4. Pulmonary HTN - continue home tadalafil Code: Full, surrogate decision maker is patient's spouse DVT: on warfarin Dispo: admit under observation status I have utilized all available immediate resources to obtain, update, or review the patient's current medications. COVID-19 COVID-19 status: Negative Time Spent With Patient Critical Care time: I spent a total of [] minutes of critical care time on this patient's care today; this time is exclusive of procedural time. Quality MIPS - Admit I confirm the patient?s Advance Care Plan is present, Code status is documented, Surrogate decision maker is in patient?s record [If Yes, STOP here]: Yes
[2021-06-23] MEDS: WARFARIN 5 MG TABLET 11.25 MG PO (18:02)
[2021-06-23 19:36] LABS: Troponin I < 0.012 ng/mL (0.01-0.034)
[2021-06-24] VITALS (9 sets, daily range): BP systolic 129–138; BP diastolic 63–76; PULSE 75–78; RESP 17–18; TEMP 36.2–36.6; O2SAT 94–97
[2021-06-24] MEDS: PANTOPRAZOLE DR 40 MG TABLET PO (06:22)
[2021-06-24] MEDS: ASPIRIN EC 81 MG TABLET PO (14:28)
--- NOTE | 2021-06-24 16:30 | CM.DANOTE ---
DCP Assessment: Patient is a 76 yr old female who was admitted for a chest pain r/o. patient pending a stress test today. CM met with patient at the bedside and explained role. patient was alert and oriented x4 during meeting. patient currently lives in [place] with her . Patient states she is independent at baseline and drives. patient does not use any DME and is planning on DC home with her when medically stable. I: [employer] MCR and Self pay PCP: Manny Plan: DC home with her when medically stable. No identified DC planning needs Cm department will follow to assist with any DC needs that may arise. Rahel Jules RNcoverage specialist rn Discharge Planning/Care Management CM Discharge Assessment Start: 06/24/21 16:28 Freq: Status: Active Protocol: Document 06/24/21 16:28 HS (Rec: 06/24/21 16:30 HS [id number]) Discharge Planning Assessment Assigned Windows Server Engineer Rahel Jules RN Case mananger DPOA/Assigned Designee Name William Hardin - Contact Information [phone] Advance Directives? Yes: on file Advance Directives on File Yes History Provided By Patient Has Patient been admitted in last 30 No days? Prior Living Arrangements Apartment/Condo Household Members spouse Type of transporation used prior to Drives own vehicle admit Independent with ADL's Yes Is patient alert and oriented? Yes Caregiver for Another Yes: Helps with her Comment Does not use any DME at her baseline Barriers to Discharge No Discharge Plan Home Referrals Initiated None needed Whiteboard Updated in Patient Room with Yes name and ext. # of Windows Server Engineer Review Status In Process Next Review Type Continued Stay Review
--- NOTE | 2021-06-24 17:07 | P.DS_ITS ---
History of Present Illness History of Present Illness Chief complaint: Chest pain since last night/ rt arm pain, dizzy Narrative: This is a 75-year-old female with a past medical history of hyperlipidemia, prior rheumatic heart disease with mitral valve replacement in 2008 with chronic dyspnea on exertion who presented with abrupt onset of chest pain started this morning. Patient states that the pain is like a metal like band across her right chest with radiation into her right arm. This started at 4:00 a.m. and awoke her from sleep. It got slightly better so she went to volunteer at the [facility], but she became lightheaded and dizzy and did not feel right and then decided to come here. She had recurrence of her chest pressure, though it is not necessarily associated with exertion. She does not know of any provoking or palliative factors at this time. She also felt dizzy and nauseous when she had the pain. She denies any diaphoresis. She Denies any prior chest pain, nausea, vomiting, abdominal pain, dysuria, urinary frequency, lower extremity edema. She usually gets short of breath when going up any incline or stairs. She had an extensive evaluation with primary care and Cardiology including pulmonary function testing was unremarkable. Her chest pain was Relieved with nitroglycerin in the emergency room, and she now has a mild headache. The patient has known pulmonary hypertension per review of her cardiology records and does take todalafil. She states her last stress test was approximately 2 years ago. In the emergency room, the patient was mildly hypertensive but the remainder of her vital signs were unremarkable. Laboratory evaluation revealed an unremarkable CBC. Appropriate INR at 3.3 given her heart valve, and an unremarkable BMP. Troponin was negative, proBNP was mildly elevated at 317. COVID-19 testing was negative. Patient was admitted for further observation to rule out an acute coronary syndrome and evaluate further with stress testing. Discharge Providers Provider Date of admission: 06/23/21 11:57 Discharge Date: 06/24/21 Primary care physician: Marlin Bryant MD Discharge provider: Sylvester Esteban DO Summary Hospital Course Discharge Diagnosis: 1. Chest pain, acute, present on admission 2. History of mitral valve replacement on warfarin 3. HTN 4. Pulmonary HTN Hospital Course: This is a 75-year-old female with a past medical history of hyperlipidemia, prio r rheumatic heart disease with mitral valve replacement in 2008 with chronic dyspnea on exertion who presented with abrupt onset of chest pain that started the morning of admission. Patient had two negative troponins 8 hours apart and symptoms resolved after nitroglycerin administration in the ER. Patient had no recurrence of symptoms. She underwent stress testing the following day which was deemed low risk. Echocardiogram showed no significant changes compared to prior studies. 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 Exam Vital Signs (past 8 hours): - 06/24/21 09:32 06/24/21 09:52 06/24/21 12:32 Temperature 97.6 F Pulse Rate 78 Respiratory Rate 18 Blood Pressure 130/73 Pulse Oximetry 95 96 94 06/24/21 15:27 06/24/21 16:08 Temperature 97.5 F L Pulse Rate 75 Respiratory Rate 17 Blood Pressure 129/76 Pulse Oximetry 97 94 Oxygen Delivery Method Room Air Oxygen Flow Rate 0 Narrative Exam Narrative: General:? Patient is well developed and well nourished, in no distress at this time. HEENT:? Normocephalic, atraumatic, extraocular muscles intact, oral pharynx is clear and mucous membranes are moist. Neck: supple and symmetric, trachea is midline, no cervical adenopathy. Negative for JVD Chest:? Normal AP diameter and contour without kyphoscoliosis, no tachypnea, equal chest rise bilaterally. Lungs:?LLL rales, no rhonchi or wheezing. R lung is CTA. Cardio:?RRR, mechanical click without obvious murmur, rubs, gallops. Abdomen: S NT ND. No CVA tenderness. Musculoskeletal:? Muscle strength and tone are equal within normal limits, no deformity. Extremities: No edema or joint effusions. No cyanosis or clubbing. Skin:? Pale,? Warm to touch,dry and intact without rashes, ulcerations or petechiae.? Neuro:? Alert and orientated x3,? sensation to touch intact in all extremities, no gross deficits noted of cranial nerves. Psych:? Patient has a well-kept appearance, appropriate affect, mental status at titude thought context and judgment are appropriate for age. Objective Labs Result Diagrams: 06/23/21 09:55 06/23/21 09:55 Labs: Laboratory Results - last 24 hr 06/23/21 17:58 Troponin I < 0.012 [facility] Medical History Abnormal Pap smear of cervix Allergy to casein Anxiety (~1979) Carpal tunnel syndrome (~1987) Chickenpox Class 1 obesity (08/20/14) Depression (~1966) Fibromyalgia Foot pain (~2007) Fracture (~2007) GERD (gastroesophageal reflux disease) (~2008) Heavy menstrual period (~1994) History of recurrent ear infection Hyperlipidemia Hypertension IBS (irritable bowel syndrome) (~2014) Measles (~1951) Migraines (~1959) Mumps Osteoarthritis (~1999) Osteopenia (~1997) Pulmonary hypertension Rheumatic fever (~1953) Seasonal allergies Sinus tachycardia Urinary incontinence (~2002) Vision abnormalities Surgical History Anesthesia H/O mitral valve replacement Status post appendectomy (~1980) Status post bunionectomy (~2010) Status post colonoscopy (~2006) Surgical procedure planned (~1996) Family History Brother Age: 62 Hypertension High cholesterol Child Age: 50 Mental health problem Father High cholesterol Heart attack Social History household members: spouse Smoking Status: Never smoker alcohol intake: current substance use type: does not use Discharge Plan Discharge Plan Patient Disposition: Home Provider Discharge Comment: You were admitted to the hospital with chest pain. You underwent stress testing which was normal. Your ultrasound of your heart also showed minimal changes compared to prior studies. No medication changes are recommended. Happy Birthday! Discharge orders & Medications Prescriptions: Continued aspirin 81 MG tablet,delayed release (DR/EC) 81 mg PO QDAY Qty: 0 0RF omeprazole 40 mg capsule,delayed release(DR/EC) See Rx Instructions .ROUTE .COMPLEX Qty: 90 2RF Dose Instruction: TAKE ONE CAPSULE BY MOUTH ONE TIME DAILY Rx Instructions: TAKE ONE CAPSULE BY MOUTH ONE TIME DAILY warfarin 7.5 mg tablet See Rx Instructions .ROUTE .COMPLEX Qty: 110 3RF Dose Instruction: TAKE 1 TABLET BY MOUTH 5 DAYS PER WEEK, AND 1 AND 1/2 TABLETS (11.25MG) ON WEDNESDAY AND FRIDAYS Rx Instructions: 7.5 mg Wednesday, , Wednesday and 11.25 mg all other days, or as directed. tadalafil [Cialis] 10 mg tablet 20 mg PO DAILY 0RF metoprolol succinate 50 mg tablet extended release 24 hr 50 mg PO AC 0RF Rx Instructions: takes with dinner gabapentin 100 mg capsule 300 mg PO PRN PRN (Reason: neuropathy) 0RF Rx Instructions: Take 1-3 caps by mouth at bedtime Follow up/Referrals: Marlin Bryant MD [Primary Care Provider] - Diet/Activity/Treatments Diet: Diet as Tolerated Activity: As tolerated Discharge Data Primary Care Provider: Mariln Bryant Attending Provider: Sylvester Esteban
--- NOTE | 2021-06-24 18:16 | PC.NURSE ---
Discharge Note Patient A&O, VSS, RA. No complaints of chest pain, shortness of breath or other pain/discomfort. Discharge packet reviewed with patient, all questions/concerns addressed. TELE/PIV discontinued. Patient able to dress self. Patient able to back all belongings along with discharge packet. Patient taken down via wheelchair to POV.
--- NOTE | 2021-06-24 20:01 | DI.NM.S_ITS ---
DATE OF SERVICE: 06/24/2021 PROCEDURE: Exercise perfusion study. INDICATION: Chest pain with underlying hypertension and hyperlipidemia. RADIOPHARMACEUTICAL: 26.4 millicurie technetium-99m Myoview IV was injected at stress and 11.2 millicurie technetium-99m Myoview IV was injected at rest. CARDIAC STRESS: The patient walked on Amanuel protocol for about 4 minutes and 34 seconds, achieved 94 percent of target heart rate. Baseline blood pressure 140/88 mmHg. Peak blood pressure 170/88 mmHg. Could not walk further because of knee pain. Baseline rhythm was sinus. During stress, no convincing ischemic changes seen. Occasional PVCs without any ventricular tachycardia. During exercise, patient had chest discomfort, which was on a scale of 1 to 10, 5 in intensity, and resolved within 3 seconds in recovery. Also, had moderate shortness of breath. RICO positive 41 percent. The patient achieved 4.6 METs of workload. RAW DATA: There is increased subdiaphragmatic activity. GATED STUDY: Stress LV ejection fraction 75 and resting LV ejection fraction is 72 percent without any obvious wall motion abnormalities. Resting end-diastolic volume 90 mL. TID ratio 0.93, which is within normal limits. Lung/heart ratio 0.34, which is within normal limits. MYOCARDIAL PERFUSION SCAN: The stress supine and resting supine images revealed normal myocardial perfusion. No convincing ischemia or infarction. CONCLUSION: I will call this study a normal myocardial perfusion study. Diminished exercise tolerance. Normal hemodynamic response. No significant arrhythmias. No ischemic electrocardiographic changes during chest discomfort. As far as perfusion scan is concerned, this is a low-risk myocardial perfusion scan. Arleen Amador - Harinder/boris doc#: [id number]/job#: [id number] dd: 06/24/2021 17:19:00 dt: 06/24/2021 19:47:00 DICTATING MD/COPIES TO: Jennie Sanchez MD COPIES MNE: PIERCE;
== END 2021-06-24 18:00 | disposition home or self-care (01) ==
LOC: ED 11:26 → AC 11:58
PROVIDERS: Admitting Provider Internal Medicine; Emergency Provider Emergency Medicine; PCP Family Medicine; Referring Provider Emergency Medicine; Visit Provider Internal Medicine
DX: R07.9 Chest pain, unspecified (principal); E78.5 Hyperlipidemia, unspecified; Z79.01 Long term (current) use of anticoagulants; I10 Essential (primary) hypertension; I27.20 Pulmonary hypertension, unspecified; Z95.2 Presence of prosthetic heart valve; Z20.822 Contact with and (suspected) exposure to COVID-19
CPT/HCPCS: 36415; 71045; 78452; 80053; 82550; 83690; 83735; 83880; 84484; 85025; 85610; 85730; 87635; 93005; 93017; 93306; 94760; 99284; C9803; G0378; A9502

== ENCOUNTER → 2021-08-28 15:00 | Outpatient (CLI) | payer MEDICARE, SELFPAY ==
[2021-06-25 11:42] VITALS: BMI 29.5
--- NOTE | 2021-08-28 15:02 | DI.RAD.S_ITS ---
PROCEDURE: XR HIP W PEL IF DONE LT 2V INDICATIONS: eval for fx s/p fall, h/o osteoporosis TECHNIQUE: AP pelvis with lateral view(s) of the left hip(s). COMPARISON: [facility], CR, XR PELVIS 1-2V, 04/05/2019, 13:42. FINDINGS: Bones: Normal mineralization. Right femoral jessica and transverse proximal screws are in place. Minor, symmetric femoroacetabular joint space loss. No fractures or dislocations. Pelvic ring appears intact. No suspicious bony lesions. Chronic, stable circumscribed lucency in the intertrochanteric right proximal femur. Soft tissues: The visualized bowel gas pattern is normal. No suspicious soft tissue calcifications. IMPRESSION: 1. No left hip or pelvic fracture visible. 2. Mild symmetric femoroacetabular joint degeneration. 3. Stable appearance of right proximal femoral lucency, potentially bone cyst, and traversing right femoral jessica. Dictated by: Lakisha Piña M.D. on 08/28/2021 at 17:26 Approved by: Lakisha Piña M.D. on 08/28/2021 at 17:29
== END ==
PROVIDERS: PCP Pediatrics; Referring Provider Pediatrics; Visit Provider Pediatrics
DX: M16.12 Unilateral primary osteoarthritis, left hip (principal); M25.552 Pain in left hip
CPT/HCPCS: 73502

== ENCOUNTER → 2021-09-16 09:01 | Outpatient (CLI) | payer MEDICARE, SELFPAY ==
[2021-06-25 11:42] VITALS: BMI 29.5
--- NOTE | 2021-09-16 09:02 | DI.MRI.S_ITS ---
PROCEDURE: MR HIP LT WO CON INDICATIONS: eval for occult fx vs other TECHNIQUE: Noncontrast coronal T1 spin echo and STIR through the bony pelvis. Coronal and axial T2 fast spin echo with fat saturation, sagittal T1 spin echo, and oblique axial T2 fast spin echo with fat saturation through the hip. COMPARISON: [facility], CR, XR HIP W PEL IF DONE LT 2V, 08/28/2021, 15:05. FINDINGS: Image quality: Excellent. Bones and joints: Linear horizontal [id number] signal is seen within the medullary canal at the left proximal femur just distal to the lesser trochanter. No surrounding edema is seen. The adjacent cortex is intact. This area is hyperintense on T1-weighted images. Postsurgical changes are seen from right femoral fixation with an intramedullary nail, with associated metallic artifact. Pelvic bones demonstrate normal signal intensity. No MR evidence of avascular necrosis. Disc space narrowing, degenerative endplate changes, and facet hypertrophy are seen in the included lower lumbar spine. [id number] degenerative changes are seen in the right hip on full [id number] coronal images. Tendons and ligaments: Focal fluid signal intensity is seen at the posterior aspect of the distal gluteus minimus tendon near its insertion onto the greater trochanter, consistent with partial intrasubstance tearing. Findings are superimposed on gluteus medius and minimus tendinosis. There is a small trochanteric bursal effusion and trace subgluteal bursal fluid. The proximal iliotibial band appears intact. The iliopsoas tendon appears intact, without adjacent bursal fluid collections. The origin of the hamstring tendon is intact at the ischial tuberosity. The direct and indirect heads of the rectus femoris muscle origin appear intact. Labrum and cartilage: Mild diffuse labral degeneration without a focal displaced tear. Mild partial-thickness cartilage thinning and irregularity is seen at the superior left hip. There is normal morphology of the femoral head and the acetabulum. Soft tissues: Visualized muscles demonstrate normal bulk and internal signal. Quadratus femoris muscle demonstrates no internal edema to suggest ischiofemoral impingement. The proximal sciatic neurovascular bundle appears intact. Multiple diverticula are seen in the sigmoid colon. IMPRESSION: 1. Partial intrasubstance tearing of the distal left gluteus minimus tendon near its insertion onto the greater trochanter, superimposed on gluteus minimus and medius tendinosis. Small trochanteric bursal effusion or bursitis. Trace subgluteal bursal fluid. 2. Linear signal abnormality in the left proximal femoral diaphysis is seen without surrounding edema. There is associated T1-hyperintense signal. The overlying cortex appears intact. While findings could possibly represent a subtle incomplete stress fracture, they are favored to represent a normal physiologic process such as an interface between fatty and cellular marrow, which may have a mildly atypical appearance. Clinical correlation is recommended. 3. Mild degenerative changes in the left hip and including grade 2 chondromalacia. Mild degenerative changes are also seen contralateral right hip. 4. Postsurgical changes involving the right proximal femur with associated metallic artifact. 5. Degenerative changes in the included lumbar spine. Dictated by: Angel Fernandez M.D. on 09/16/2021 at 11:33 Approved by: Angel Fernandez M.D. on 09/16/2021 at 11:51
== END ==
PROVIDERS: PCP Pediatrics; Referring Provider Pediatrics; Visit Provider Pediatrics
DX: M25.552 Pain in left hip (principal); M19.90 Unspecified osteoarthritis, unspecified site; M81.0 Age-related osteoporosis without current pathological fracture; S76.012A Strain of muscle, fascia and tendon of left hip, initial encounter; M71.552 Other bursitis, not elsewhere classified, left hip; M94.252 Chondromalacia, left hip
CPT/HCPCS: 73721

== ENCOUNTER → 2021-11-04 07:31 | Outpatient (CLI) | payer MEDICARE, SELFPAY ==
[2021-06-25 11:42] VITALS: BMI 29.5
[2021-11-04 08:35] LABS: INR 2.5 (0.9-1.3); Prothrombin Time 28.9 SECONDS (10.1-12.7)
== END ==
PROVIDERS: PCP Pediatrics; Referring Provider Pediatrics; Visit Provider Pediatrics
DX: Z79.01 Long term (current) use of anticoagulants (principal)
CPT/HCPCS: 36415; 85610

== ENCOUNTER → 2021-12-01 07:10 | Outpatient (CLI) | payer MEDICARE, SELFPAY ==
[2021-06-25 11:42] VITALS: BMI 29.5
[2021-12-01 07:46] LABS: INR 2.6 (0.9-1.3); Prothrombin Time 29.6 SECONDS (10.1-12.7)
== END ==
PROVIDERS: PCP Pediatrics; Referring Provider Pediatrics; Visit Provider Pediatrics
DX: Z79.01 Long term (current) use of anticoagulants (principal); Z95.2 Presence of prosthetic heart valve
CPT/HCPCS: 36415; 85610

== ENCOUNTER → 2021-12-29 07:02 | Outpatient (CLI) | payer MEDICARE, SELFPAY ==
[2021-06-25 11:42] VITALS: BMI 29.5
[2021-12-29 08:56] LABS: INR 2.8 (0.9-1.3)
== END ==
PROVIDERS: PCP Family Medicine; Referring Provider Family Medicine; Visit Provider Family Medicine
DX: Z95.2 Presence of prosthetic heart valve (principal); Z79.01 Long term (current) use of anticoagulants
CPT/HCPCS: 36415; 85610

== ENCOUNTER → 2022-02-09 07:36 | Outpatient (CLI) | payer MEDICARE, SELFPAY ==
[2021-06-25 11:42] VITALS: BMI 29.5
[2022-02-09 10:01] LABS: INR 3.5 (0.9-1.3); Prothrombin Time 40.9 SECONDS (10.1-12.7)
== END ==
PROVIDERS: PCP Family Medicine; Referring Provider Family Medicine; Visit Provider Family Medicine
DX: Z79.01 Long term (current) use of anticoagulants (principal); Z95.2 Presence of prosthetic heart valve
CPT/HCPCS: 36415; 85610

== ENCOUNTER → 2022-02-16 07:29 | Outpatient (CLI) | payer MEDICARE, SELFPAY ==
[2021-06-25 11:42] VITALS: BMI 29.5
[2022-02-16 08:59] LABS: INR 2.4 (0.9-1.3); Prothrombin Time 27.7 SECONDS (10.1-12.7)
== END ==
PROVIDERS: PCP Family Medicine; Referring Provider Family Medicine; Visit Provider Family Medicine
DX: Z79.01 Long term (current) use of anticoagulants (principal); Z95.2 Presence of prosthetic heart valve
CPT/HCPCS: 36415; 85610

== ENCOUNTER → 2022-02-23 08:01 | Outpatient (CLI) | payer MEDICARE, SELFPAY ==
[2021-06-25 11:42] VITALS: BMI 29.5
[2022-02-23 09:53] LABS: INR 2.7 (0.9-1.3); Prothrombin Time 31.7 SECONDS (10.1-12.7)
== END ==
PROVIDERS: PCP Family Medicine; Referring Provider Internal Medicine; Visit Provider Internal Medicine
DX: Z79.01 Long term (current) use of anticoagulants (principal); Z95.2 Presence of prosthetic heart valve
CPT/HCPCS: 36415; 85610

== ENCOUNTER → 2022-02-26 07:28 | Outpatient (CLI) | payer MEDICARE, SELFPAY ==
[2021-06-25 11:42] VITALS: BMI 29.5
--- NOTE | 2022-02-26 | DI.MG.S_ITS ---
BILATERAL DIGITAL SCREENING MAMMOGRAM 3D/2D WITH CAD: 02/26/2022 CLINICAL: Routine screening. Family history of breast cancer. Comparison is made to exams dated: 01/11/2021 mammogram, 01/11/2020 mammogram, and 01/31/2018 mammogram - [facility]. There are scattered areas of fibroglandular density in both breasts (category b / 25%-50% glandular tissue). Current study was also evaluated with a Computer Aided Detection (CAD) system. No significant masses, calcifications, or other findings are seen in either breast. There has been no significant interval change. IMPRESSION: NEGATIVE There is no mammographic evidence of malignancy. A 1 year screening mammogram is recommended. Based on the Tyrer Cuzick model (a risk assessment model) the patient's lifetime risk is 4.9% and her 10 year risk is 4.9%. According to the ACR, ACS, and NCCN guidelines, an annual breast MRI exam along with mammogram is recommended if the patient's lifetime risk is 20% or greater. This exam was interpreted at Station ID: [id number]. NOTE: For mammograms, a report in lay terms will be sent to the patient. Approximately 15% of breast malignancies will not be visualized mammographically. In the management of a palpable breast mass, a negative mammogram must not discourage biopsy of a clinically suspicious lesion. Electronically Signed By: Angel davis/kirby:02/26/2022 10:43:36 letter sent: Normal Exam ACR BI-RADS Category 1: Negative [id number]
== END ==
PROVIDERS: PCP Family Medicine; Referring Provider Family Medicine; Visit Provider Family Medicine
DX: Z12.31 Encounter for screening mammogram for malignant neoplasm of breast (principal); Z80.3 Family history of malignant neoplasm of breast
CPT/HCPCS: 77063; 77067

== ENCOUNTER → 2022-03-02 07:19 | Outpatient (CLI) | payer MEDICARE, SELFPAY ==
[2021-06-25 11:42] VITALS: BMI 29.5
[2022-03-02 10:28] LABS: INR 2.7 (0.9-1.3); Prothrombin Time 31.7 SECONDS (10.1-12.7)
== END ==
PROVIDERS: PCP Family Medicine; Referring Provider Family Medicine; Visit Provider Family Medicine
DX: Z79.01 Long term (current) use of anticoagulants (principal); Z95.2 Presence of prosthetic heart valve
CPT/HCPCS: 36415; 85610

== ENCOUNTER → 2022-03-30 07:18 | Outpatient (CLI) | payer MEDICARE, SELFPAY ==
[2021-06-25 11:42] VITALS: BMI 29.5
[2022-03-30 07:58] LABS: INR 2.6 (0.9-1.3); Prothrombin Time 29.8 SECONDS (10.1-12.7)
== END ==
PROVIDERS: PCP Family Medicine; Referring Provider Family Medicine; Visit Provider Family Medicine
DX: Z79.01 Long term (current) use of anticoagulants (principal); Z95.2 Presence of prosthetic heart valve
CPT/HCPCS: 36415; 85610

== ENCOUNTER → 2022-04-09 11:48 | Outpatient (CLI) | payer MEDICARE, SELFPAY ==
[2021-06-25 11:42] VITALS: BMI 29.5
--- NOTE | 2022-04-09 | DI.CT.S_ITS ---
PROCEDURE: CT SHOULDER RIGHT WITHOUT CON INDICATIONS: RIGHT SHOULDER ROTATOR CUFF ARTHROPATHY TECHNIQUE: Noncontrast 1-1.5 mm thick sections acquired from the acromioclavicular joint to the inferior scapula, with coronal and sagittal reformatting. COMPARISON: [facility], CR, XR SHOULDER 2+ VIEWS RIGHT, 09/26/2018, 7:05. [facility], CR, XR SHOULDER 2+ VIEWS RIGHT, 04/02/2022, 10:06. FINDINGS: Image quality: Excellent. Bones: No acute osseous fracture or dislocation. Severe glenohumeral osteoarthrosis including severe full-thickness joint space narrowing, subchondral sclerosis, subchondral cystic changes, marginal osteophyte formation, and remodeling of the articular surfaces. The humeral head is high riding and abuts the undersurface of the acromion with associated acromiohumeral degenerative changes. There is no significant glenoid retroversion or anteversion. Mild degenerative changes are seen in the acromioclavicular joint. Visualized right-sided ribs are intact. Sternotomy wires are noted. Soft tissues: There is moderate atrophy and grade 3 fatty infiltration of the supraspinatus muscle, which is most likely related to chronic tendon tearing. Included portions of the right lung are clear. No significant glenohumeral effusion. IMPRESSION: 1. Severe glenohumeral osteoarthrosis as described in the body of the report. 2. Humeral head is high riding and abuts the undersurface of the acromion and there is moderate atrophy of the supraspinatus muscle. Findings are consistent with underlying full-thickness rotator cuff tendon tearing. 3. Mild acromioclavicular osteoarthrosis. Approved by: Angel Fernandez M.D. on 04/09/2022 at 16:45
== END ==
PROVIDERS: PCP Family Medicine; Referring Provider Orthopaedic Surgery; Visit Provider Orthopaedic Surgery
DX: M19.011 Primary osteoarthritis, right shoulder (principal)
CPT/HCPCS: 73200

== ENCOUNTER → 2022-04-13 11:03 | Outpatient (CLI) | payer MEDICARE, SELFPAY ==
[2021-06-25 11:42] VITALS: BMI 29.5
[2022-04-13 11:36] LABS: Add Manual Diff / Slide Review NO; Basophils Absolute Auto 0 /uL (0-100); Basophils Percent Auto 0.7 % (0-2); Eosinophils Absolute Auto 200 /uL (0-450); Eosinophils Percent Auto 4.8 % (2-4); Hematocrit 38.8 % (36-46); Hemoglobin 13.1 g/dL (12.0-16.0); Lymphocytes Absolute Auto 1100 /uL (1100-4500); Lymphocytes Percent Auto 24.3 % (25-40); Mean Corpuscular HGB Conc 33.7 % (30-36); Mean Corpuscular Hemoglobin 30.8 PG (26-34); Mean Corpuscular Volume 91.4 fL (80-100); Monocytes Absolute Auto 500 /uL (0-900); Monocytes Percent Auto 11.3 % (3-14); Neutrophils Absolute Auto 2700 /uL (1500-7000); Neutrophils Percent Auto 58.9 % (50-75); Platelet Count 186 X10^3/uL (150-400); Red Blood Cell Count 4.25 X10^6/uL (4.0-5.2); Red Cell Distribution Width 13.9 % (11.6-14.8); White Blood Cell Count 4.6 X10^3/uL (4.5-11.0)
[2022-04-13 11:46] LABS: INR 2.8 (0.9-1.3); Prothrombin Time 32.6 SECONDS (10.1-12.7)
[2022-04-13 11:49] LABS: PTT Partial Thromboplastin Tim 46 SECONDS (26-36)
[2022-04-13 11:51] LABS: BUN Creatinine Ratio 17.2 (6-22); Blood Urea Nitrogen 11 mg/dL (7-17); Calcium 9.1 mg/dL (8.4-10.2); Carbon Dioxide 30 mmol/L (22-32); Chloride 100 mmol/L (98-107); Estimated Glomerular Filt Rate > 60 mL/min (>60); Glucose 75 mg/dL (80-110); HEMOLYSIS < 15 (0-50); Potassium 3.8 mmol/L (3.4-5.1); Sodium 136 mmol/L (137-145)
== END ==
PROVIDERS: PCP Family Medicine; Referring Provider Orthopaedic Surgery; Visit Provider Orthopaedic Surgery
DX: Z01.818 Encounter for other preprocedural examination (principal); Z51.81 Encounter for therapeutic drug level monitoring; Z01.812 Encounter for preprocedural laboratory examination
CPT/HCPCS: 36415; 80048; 85025; 85610; 85730; 93005

== ENCOUNTER → 2022-05-11 06:59 | Outpatient (CLI) | payer MEDICARE, SELFPAY ==
[2022-04-13 14:13] VITALS: BMI 29.5
[2022-05-11 07:50] LABS: INR 1.6 (0.9-1.3); Prothrombin Time 18.8 SECONDS (10.1-12.7)
== END ==
PROVIDERS: PCP Family Medicine; Referring Provider Family Medicine; Visit Provider Family Medicine
DX: I82.409 Acute embolism and thrombosis of unspecified deep veins of unspecified lower extremity (principal)
CPT/HCPCS: 36415; 85610

== ENCOUNTER → 2022-05-25 08:19 | Outpatient (CLI) | payer MEDICARE, SELFPAY ==
[2022-04-13 14:13] VITALS: BMI 29.5
[2022-05-25 08:49] LABS: INR 1.3 (0.9-1.3); Prothrombin Time 15.1 SECONDS (10.1-12.7)
== END ==
PROVIDERS: PCP Family Medicine; Referring Provider Family Medicine; Visit Provider Family Medicine
DX: I82.409 Acute embolism and thrombosis of unspecified deep veins of unspecified lower extremity (principal)
CPT/HCPCS: 36415; 85610

== ENCOUNTER 2022-06-04 10:46 | Inpatient (IN) | payer MEDICARE, SELFPAY ==
[2022-04-13 14:13] VITALS: BMI 29.5
[2022-05-01 09:43] VITALS: BMI 29.4
[2022-06-04] VITALS (13 sets, daily range): BP systolic 121–200; BP diastolic 54–91; PULSE 77–90; RESP 17–20; TEMP 35.9–36.4; O2SAT 91–97; BMI 29.4; BMI 31.6
[2022-06-04 11:22] LABS: COVID19 -Nasal RAPID Negative (Negative)
[2022-06-04] MEDS: LACTATED RINGERS 1,000 ML 42 ML IV ×2 (11:40→14:26)
--- NOTE | 2022-06-04 11:40 | SUR.PREOP ---
Prepped for Surgery. Bedside INR 1.0. Difficult IV start. 3 Attempts. Right shoulder prepped with CHG wipes.
--- NOTE | 2022-06-04 12:34 | PM.HP.1 ---
History of Present Illness History of Present Illness Date Patient Seen: 06/04/22 Time Patient Seen: 12:00 Chief complaint: RT TSA Narrative: 76-year-old female with a history of rotator cuff arthropathy to the right shoulder that has caused her quite a bit of pain and dysfunction. Has not really improved with conservative measures and is interested in surgery to address the right shoulder. Patient History Medical History Abnormal Pap smear of cervix Allergy to casein Anxiety (~1979) Aortic regurgitation Carpal tunnel syndrome (~1987) Chickenpox Class 1 obesity (08/20/14) COVID-19 virus infection (09/2021) Depression (~1966) Depression, major, recurrent Fibromyalgia Foot pain (~2007) Fracture (~2007) GERD (gastroesophageal reflux disease) (~2008) Heavy menstrual period (~1994) Hip pain History of recurrent ear infection Hyperlipidemia Hypertension IBS (irritable bowel syndrome) (~2014) Measles (~1951) Migraines (~1959) Mumps MIHAI (obstructive sleep apnea) Osteoarthritis (~1999) Osteopenia (~1997) Osteoporosis Pulmonary hypertension Rheumatic fever (~1953) Right rotator cuff tendonitis Seasonal allergies Sinus tachycardia Tear of right gluteus medius tendon Urinary incontinence (~2002) Vision abnormalities Surgical History Anesthesia H/O mitral valve replacement (01/16/09) Hx of bilateral cataract extraction Hx of plastic surgery Hx of toe surgery Hx of tubal ligation S/P left unicompartmental knee replacement S/P right unicompartmental knee replacement Status post appendectomy (~1980) Status post bunionectomy (~2010) Status post colonoscopy (~2006) Surgical procedure planned (~1996) Family & Social History Family History Brother Age: 63 Hypertension High cholesterol Child Age: 51 Mental health problem Father High cholesterol Heart attack Social History: household members spouse Prior Living Arrangements Apartment/Condo Safety & Behavioral: Feels Safe in Current Yes Environment Been Physically Hurt or No Threatened By a Person Suicidal Ideation Description None Suicide Plan Description No Plan Tobacco & Substance use: Smoking Status Never smoker alcohol intake current alcohol intake frequency holiday/special occasion Substance Use Type does not use Meds Home Medications and Allergies Home Medications Medication Instructions Recorded Confirmed Type aspirin 81 mg tablet,delayed 81 mg PO QDAY ##0 08/12/16 05/01/22 History release warfarin 7.5 mg tablet See Rx Instructions .Route .COMPLEX 10/13/21 05/01/22 History omeprazole 40 mg capsule,delayed 40 mg PO DAILY 12/10/21 06/04/22 History release fluoxetine 10 mg capsule 10 mg PO DAILY #90 caps 03/10/22 06/04/22 Rx metoprolol succinate 50 mg 50 mg PO QPM 05/01/22 06/04/22 History tablet,extended release 24 hr enoxaparin 80 mg/0.8 mL 80 mg (0.8 mL) SUBCUT Q12H #8 mL 06/01/22 06/04/22 Rx subcutaneous syringe (Lovenox) Allergies Allergy/AdvReac Type Severity Reaction Status Date / Time mometasone furoate Allergy Severe ANAPHYLAXIS Verified 03/13/22 09:57 [MOMETASONE FUROATE] adhesive tape [ADHESIVE TAPE] Allergy Intermediate Blisters Verified 05/01/22 10:07 adhesive [ADHESIVE] Allergy Mild LOCAL Verified 03/13/22 09:57 HIVES,BLISTERS diclofenac [From VOLTAREN] Allergy Mild HIVES Verified 03/13/22 09:57 latex [LATEX] Allergy Mild HIVES,BLIST Verified 03/13/22 09:57 ERS ezetimibe [EZETIMIBE] AdvReac Severe Muscle Verified 05/01/22 10:07 pain, spasms nirmatrelvir AdvReac Severe loss of Verified 03/13/22 09:57 [From Paxlovid (EUA)] consciousness ritonavir AdvReac Severe loss of Verified 03/13/22 09:57 [From Paxlovid (EUA)] consciousness codeine [CODEINE] AdvReac Mild HALLUCINATI Verified 03/13/22 09:57 ONS gluten [GLUTEN] AdvReac Mild IMMEDIATE Verified 03/13/22 09:57 DIARRHEA simvastatin [SIMVASTATIN] AdvReac Mild MYALGIAS Verified 03/13/22 09:57 soy AdvReac Mild SOY MILK - Verified 03/13/22 09:57 UPSET STOMACH [id number] Reductase AdvReac Mild MYALGIAS Verified 03/13/22 09:57 Inhibitor [EZNPOPI-[id number]-[id number] REDUCTASE INHIBITOR] Milk Containing Products AdvReac Unknown CRAMPING,DRINKS Verified 03/13/22 09:57 [MILK CONTAINING PRODUCTS] ALMOND MILK Exam Vital Signs (past 8 hours): - 06/04/22 11:06 06/04/22 11:42 Temperature 97.5 F L Pulse Rate 89 84 Respiratory Rate 19 19 Blood Pressure 200/91 H 167/81 H Pulse Oximetry 96 97 Oxygen Delivery Method Room Air Room Air Oxygen Delivery Method Room Air Narrative Exam Narrative: On physical exam patient is alert and oriented x3. Has pain and difficulty with active range of motion of the shoulder. Lot of difficulty and discomfort with forward flexion or abduction and only can get to about 75?. Significant weakness throughout the rotator cuff. Signs of a high-riding humeral head. Crepitus coming from both the glenohumeral joint as well as the subacromial space. Objective Labs Labs: Laboratory Results - last 24 hr 06/04/22 10:55 SARS-CoV-2 (PCR) Negative Assessment & Plan Assessment & Plan narrative: Patient with right shoulder rotator cuff arthropathy causing a lot of pain and dysfunction. Due to this fact patient is interested in a reverse total shoulder arthroplasty. Patient understands the potential risks and limitations associated with this procedure and all of her questions and concerns were answered to her full satisfaction. The risk, benefits, alternatives, possible complications, operative course, and postop outcomes were discussed. Complications including but not limiting to bleeding, infection, fracture, nerve injury, continued pain postoperatively or instability postoperatively were discussed in detail. Medical complications including but not limited to deep venous thrombosis event, anesthesia complications with excessive bleeding, vascular events or cardiac events and other possible complications were discussed in detail. Need for postoperative rehabilitation and anticipated hospital stay and clinical course were discussed in detail. Patient acknowledges understanding and elects to proceed with surgery.
--- NOTE | 2022-06-04 12:37 | PM.PREOP ---
Pre-operative Note Interval Note History & Physical reviewed/Exam performed by Physician: Yes Changes to H&P: No
[2022-06-04] MEDS: VANCOMYCIN 1,000 MG/200 ML PIGGYBACK 200 MG IV ×2 (13:05→21:21)
[2022-06-04] MEDS: GENTAMICIN 200 MG in SODIUM CHLORIDE 0.9% 100 ML 105 MG IV (13:30)
--- NOTE | 2022-06-04 13:37 | SUR.OPER ---
Beach chair with Adánn/Raul shoulder positioner. Lower body on padded OR bed. Head in foam padded head cradle, secured with straps. Non-operative arm secured on top of a pillow, secured by tape and covered with draw sheet. Pillow under knees. Safety belt at thigh. Cloth tape over blanket over lower legs.
[2022-06-04] MEDS: LIDOCAINE 1% W/EPI 20 ML INJ (13:52)
--- NOTE | 2022-06-04 14:42 | PM.OP.1 ---
Operative Date/Time/Diagnoses Date of procedure: 06/04/22 Time of procedure: 13:00 Pre-op diagnosis: Right rotator cuff arthropathy Post-op diagnosis: same Procedure & Clinicians Procedure: Right reverse total shoulder arthroplasty Same procedure as scheduled: Yes Indications: Rotator cuff arthropathy Surgeon: Huan Fong Sourcing Associate: June Collazo Anesthesia Type: General and Peripheral nerve block Operative Notes Findings: High-riding humeral head with complete rupture of the rotator cuff. Superior aspect of the humeral head was bare of any rotator cuff tissue and signs of erosion both superiorly as well as up the glenohumeral joint. Closure Type: primary Applied: implant(s) (Size 6 humeral stem 30 3+3 humeral insert a 33+4 glenosphere a 33 suture cup neutral 24 mm base plate 20? of full augment +2 lateralization and a 20 mm post for the augmented base plate) Estimated Blood Loss (mL): 50 Procedure in detail: On date of service, Patient was met in the holding area. The operative site was signed and witnessed by the OR staff. The surgeries once again discussed with the patient and any remaining questions they had were answered fully. Patient was taken back to the operating theater and placed on the operating table in a supine position. Great care was taken to ensure that all bony prominences were properly padded. Patient was then placed into the beach chair position. The head and neck were properly positioned and secured. A timeout was performed verifying patient's name, procedure, and the operative site. The upper extremity was then prepped and draped in the normal sterile fashion. Previously, the bony anatomy and incision were marked out as well as injected with Marcaine with epinephrine. A deltopectoral approach was performed. 10 blade was used to incise the skin and fascial tissue. A deep knife was used to continue sharp dissection until the cephalic vein was visualized. The cephalic vein was dissected free allowing us to expose the deltopectoral interval. This interval was then developed. A Coy elevator was used to free up the deltoid of any scarring both superficially as well as deeply. The vein and the deltoid were taken laterally while the pectoralis was taken medially. This gave us good visualization of the strap muscles. The clavipectoral fascia was removed and the strap muscles were then retracted medially with the pectoralis. Patient had a significant high riding humeral head with articulation with the acromial arch. Patient had complete loss of the entire rotator cuff except for teres minor. The entire head was free of any soft tissue attachment. Patient had end-stage arthritic changes to the humeral head as well as the glenoid with large osteophytes anterior inferiorly as well as posteriorly. A Ronger was then used to remove the osteophytes. An intramedullary guide was placed for the humeral cut. The head was removed. In a protective plate was placed to protect the osteotomy site. We then turned our attention to the glenoid. The degenerative anterior and inferior capsular tissue was removed. This was followed by removing the degenerative labral tissue from around the glenoid as well as the biceps insertion. This gave us good visualization of the glenoid. Guide pin was placed in the center of the glenoid. This gave us a good idea of the ventral screw length. Cannulated drill bit was placed over the guidewire and drilled. This was followed by a small Reamer then by the actual augmented Reamer for the glenoid sphere which measured out to be a 33 mm. Copious irrigation was performed after all drilling and reaming. Once the glenoid was reamed the center hole was tapped. A augmented 24 mm base plate was screwed into place. Locking screws were then placed superior and inferiorly is wears anteriorly and posteriorly. We had very good screw lengths for 3 out of the for. The anterior screw was in place due to the small nature of the amount of bone. Once the base placed was securely fixated to the glenoid the glenoid sphere was impacted into place in the center screw was placed for additional fixation. The area was then copiously irrigated and we turned our attention to the humerus. We Return to our attention back to the humerus. The humerus was then reamed and broached. Trial stem was placed and then reamed for the placement of the cup. Trial liners were trialed as well and the shoulder was reduced and taken through range of motions. The +3 liner provided the most optimal stability. The trial components were removed and the final components were impacted into the humerus. A +3 liner was placed in the shoulders was reduced and taken through range of motion and was felt to be quite stable. The shoulder was copiously irrigated with pulse lavage and a drain was placed. The shoulder was closed in layered fashion and patient was extubated and taken to the PACU in stable condition. Complications: none Post-operative Condition: stable Disposition: Acute Care Plan for aftercare: Patient will follow our postoperative protocol for a reverse total shoulder arthroplasty. Since there was no subscapularis repair to protect sling is mainly for comfort.
[2022-06-04] MEDS: METOPROLOL ER 50 MG TABLET PO (16:02)
[2022-06-04] MEDS: LACTATED RINGERS 1,000 ML 125 ML IV (16:04)
[2022-06-04] MEDS: DOCUSATE 100 MG CAPSULE PO (21:21)
[2022-06-04] MEDS: MAGNESIUM HYDROXIDE 30 ML UDC PO (21:21)
[2022-06-04] MEDS: OXYCODONE IR 10 MG TABLET PO (21:21)
[2022-06-04] MEDS: ENOXAPARIN 100 MG/ML SYRINGE 80 MG SUBCUT (21:41)
[2022-06-05 03:15] VITALS: BP 146/67; PULSE 77; RESP 18; TEMP 36.4; O2SAT 95
[2022-06-05] MEDS: OXYCODONE IR 10 MG TABLET PO ×3 (03:28→10:20)
[2022-06-05] MEDS: PANTOPRAZOLE DR 40 MG TABLET PO (05:03)
[2022-06-05 06:23] LABS: Hematocrit 30.7 % (36-46); Hemoglobin 10.5 g/dL (12.0-16.0); Mean Corpuscular HGB Conc 34.4 % (30-36); Mean Corpuscular Hemoglobin 31.8 PG (26-34); Mean Corpuscular Volume 92.5 fL (80-100); Platelet Count 181 X10^3/uL (150-400); Red Blood Cell Count 3.31 X10^6/uL (4.0-5.2); Red Cell Distribution Width 14.1 % (11.6-14.8); White Blood Cell Count 7.2 X10^3/uL (4.5-11.0)
[2022-06-05 07:25] VITALS: BP 119/60; PULSE 75; RESP 18; TEMP 36.6; O2SAT 96
[2022-06-05] MEDS: ASPIRIN EC 81 MG TABLET PO (08:07)
[2022-06-05] MEDS: DOCUSATE 100 MG CAPSULE PO (08:07)
[2022-06-05] MEDS: FLUoxetine 10 MG CAPSULE PO (08:07)
[2022-06-05] MEDS: ENOXAPARIN 100 MG/ML SYRINGE 80 MG SUBCUT (08:08)
[2022-06-05] MEDS: SODIUM CHLORIDE 0.9% FLUSH 10 ML IV (08:08)
--- NOTE | 2022-06-05 08:38 | PM.DS.1 ---
History of Present Illness History of Present Illness Date Patient Seen: 06/05/22 Time Patient Seen: 08:38 Chief complaint: RT TSA Narrative: Operative Date/Time/Diagnoses Date of procedure: 06/04/22 Time of procedure: 13:00 Pre-op diagnosis: Right rotator cuff arthropathy Post-op diagnosis: same Procedure & Clinicians Procedure: Right reverse total shoulder arthroplasty Same procedure as scheduled: Yes Indications: Rotator cuff arthropathy Surgeon: Huan Fong Rn Relief Charge: June Collazo Anesthesia Type: General and Peripheral nerve block Operative Notes Findings: High-riding humeral head with complete rupture of the rotator cuff.? Superior aspect of the humeral head was bare of any rotator cuff tissue and signs of erosion both superiorly as well as up the glenohumeral joint. Closure Type: primary Applied: implant(s) (Size 6 humeral stem 30 3+3 humeral insert a 33+4 glenosphere a 33 suture cup neutral 24 mm base plate 20? of full augment +2 lateralization and a 20 mm post for the augmented base plate) Estimated Blood Loss (mL): 50 Discharge Providers Provider Date of admission: 06/04/22 10:46 Discharge Date: 06/05/22 Primary care physician: Krissy Ramirez DO Consults: 06/04/22 14:34 Consult to Discharge Planning Routine Comment: Consult to Physical Therapy Evaluate & Treat Comment: Physician Instructions: Evaluate and Treat Discharge provider: June Collazo PA-C Summary Hospital Course Discharge Diagnosis: Right rotator cuff arthropathy, s/p right reverse total shoulder arthroplasty Hospital Course: Ms Amador's hospital course was unremarkable. On POD# 1 she was feeling well and wanted to go home. She was eating and voiding without difficulty and her pain was well-controlled with oral medication. She had not yet been evaluated by inpt PT when I saw her; she does have outpt PT appts scheduled. 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 Sensation to touch intact throughout RUE, brisk capillary refill. Aquacel dressing CDI. Objective Labs 06/05/22 05:50 Labs: Laboratory Results - last 24 hr 06/04/22 06/05/22 10:55 05:50 WBC 7.2 RBC 3.31 L Hgb 10.5 L Hct 30.7 L MCV 92.5 MCH 31.8 MCHC 34.4 RDW 14.1 Plt Count 181 SARS-CoV-2 (PCR) Negative [facility] Medical History Abnormal Pap smear of cervix Allergy to casein Anxiety (~1979) Aortic regurgitation Carpal tunnel syndrome (~1987) Chickenpox Class 1 obesity (08/20/14) COVID-19 virus infection (09/2021) Depression (~1966) Depression, major, recurrent Fibromyalgia Foot pain (~2007) Fracture (~2007) GERD (gastroesophageal reflux disease) (~2008) Heavy menstrual period (~1994) Hip pain History of recurrent ear infection Hyperlipidemia Hypertension IBS (irritable bowel syndrome) (~2014) Measles (~1951) Migraines (~1959) Mumps MIHAI (obstructive sleep apnea) Osteoarthritis (~1999) Osteopenia (~1997) Osteoporosis Pulmonary hypertension Rheumatic fever (~1953) Right rotator cuff tendonitis Seasonal allergies Sinus tachycardia Tear of right gluteus medius tendon Urinary incontinence (~2002) Vision abnormalities Surgical History Anesthesia H/O mitral valve replacement (01/16/09) Hx of bilateral cataract extraction Hx of plastic surgery Hx of toe surgery Hx of tubal ligation S/P left unicompartmental knee replacement S/P right unicompartmental knee replacement Status post appendectomy (~1980) Status post bunionectomy (~2010) Status post colonoscopy (~2006) Surgical procedure planned (~1996) Family History Brother Age: 63 Hypertension High cholesterol Child Age: 51 Mental health problem Father High cholesterol Heart attack Social History household members: spouse Smoking Status: Never smoker alcohol intake: current substance use type: does not use Discharge Assessment & Plan Assessment and Plan Assessment: 1) Right rotator cuff arthropathy, s/p right reverse total shoulder arthroplasty 2) Acute anemia d/t expected surgical blood loss Plan of Treatment: 1) Restart warfarin today w/ lovenox bridge per prescribing provider. D/c home after PT if PT agrees. Outpt PT, reverse TSA protocol. F/u in office in 2 weeks. 2) VSS, making urine, asymptomatic. No intervention needed at this time. Discharge Plan Discharge Plan Patient Disposition: Home Discharge orders & Medications Prescriptions: New oxycodone 5 mg tablet 5 mg PO Q4H PRN (Reason: pain (scale score 4-6)) Qty: 40 0RF docusate sodium 100 mg Capsule 100 mg PO BID PRN (Reason: constipation) Qty: 60 1RF Continued aspirin 81 MG tablet,delayed release (DR/EC) 81 mg PO QDAY Qty: 0 fluoxetine 10 mg capsule 10 mg PO DAILY Qty: 90 0RF enoxaparin [Lovenox] 80 mg/0.8 mL syringe 80 mg SUBCUT Q12H Qty: 8 3RF warfarin 7.5 mg tablet See Rx Instructions .ROUTE .COMPLEX Dose Instruction: TAKE 1 TABLET BY MOUTH 5 DAYS PER WEEK, AND 1 AND 1/2 TABLETS (11.25MG) ON WEDNESDAY AND FRIDAYS Rx Instructions: 11.25mg Wednesday and 7.5 mg PO all other days, or as directed. omeprazole 40 mg capsule,delayed release(DR/EC) 40 mg PO DAILY metoprolol succinate 50 mg tablet extended release 24 hr 50 mg PO QPM Follow up/Referrals: Huan Fong MD [Physician] - As previously scheduled (Follow up w/ Megan Hayward PA-C, on 06/19/2022 @ 2:30 pm at [facility] in [place].) Krissy Ramirez DO [Primary Care Provider] - Diet/Activity/Treatments Diet: Diet as Tolerated Activity: Sling on during the day for comfort while up and around. Wear at night while sleeping. No active shoulder motion. Pendulums ok in front of body. Skin/Wound/Dressing Care Report to your healthcare provider any signs of infection, such as:: chills, fever, night sweats, unusual drainage and unusual redness Dressing: May shower. Leave Aquacel dressing in place until follow up in office. Call the office if the dressing becomes saturated inside. No bathing or otherwise soaking incision. Visit Report/Discharge Packet Instructions: DI for Prescription Opioid Use, DI for Shoulder Replacement Stand Alone Forms: Patient Portal/API, Stroke Signs & Symptoms, Surgery Discharge Discharge Data Primary Care Provider: Krissy Ramirez VTE Deep Vein Thrombosis/Pulmonary Embolism Present on Admission: No
--- NOTE | 2022-06-05 10:10 | CM.DANOTE ---
Patient is a 76 yo female who was admitted on 06/04/22 for Right Total Shoulder. Pt has AARP MCR and her PCP is Krissy Ramirez. EMR was reviewed. Per Ortho, pt tolerated the procedure well and likely stable for d/c pending PT eval. PT ordered and pending. SW met bedside with pt and explained role and pt confirms she lives in [place] at [facility] with her spouse/DPOA and pt is active and independent at baseline, does the driving, denies DME at baseline. Pt states her spouse is legally blind, but independent with his own ADLs but might be limited with some of his assist with pt. Pt already has set up a neighbor friend to provide transport home and for assist as needed. Pt has very supportive adult Dtr and siblings but they all live in [place]. Pt denies any hx of HH or SNF and no other supportive services in place at this time. Pt feels she would benefit from HH services at d/c due to her limits with her ADLs and bathing with her shoulder sling. SW provided HH Choice List via ipad and paper and no preference. [facility] referral made based on Vendor Calendar and [facility] kindly faxed new referral. F2F and orders completed. Pt states friend will arrive bedside around 1100 for CG training if needed and to transport and SW updated PT. Plan: SW to follow for PT eval this AM to confirm safe plan of home via friend POV and limited spouse assist and new [facility] referral made. JOHN Loera Discharge Planning/Care Management CM Discharge Assessment Start: 06/05/22 09:38 Freq: Status: Active Protocol: Document 06/05/22 09:39 BF (Rec: 06/05/22 09:41 [id number]) Discharge Planning Assessment Assigned Senior Group Manager JOHN Veloz DPOA/Assigned Designee Name Spouse Advance Directives? Yes: on file Advance Directives on File Yes History Provided By Patient,Medical Record Has Patient been admitted in last 30 No days? Prior Living Arrangements Apartment/Condo Household Members spouse Type of transporation used prior to Drives own vehicle admit Independent with ADL's Yes Is patient alert and oriented? Yes Caregiver for Another Yes: spouse legally blind Comment Does not use any DME at her baseline Patient/Family Preference Home with Home Health Barriers to Discharge No Discharge Plan Home with Home Health Community Services Physical Therapy,Home Health Nurse Transportation Arrangement neighbor friend Referrals Initiated Home Health If patient plan is home with home health Yes : Has signed face to face form been completed? Medicare Choice List Provided Yes Medicare choice list reviewed on patient electronic tablet with SNF/HH Preference [facility] Whiteboard Updated in Patient Room with Yes name and ext. # of Senior Group Manager Review Status In Process Please Provide Date Initial DC 06/05/22 Assessment Was Performed Next Review Type Continued Stay Review Pre-Anesthesia Assessment Start: 05/01/22 09:43 Freq: Status: Complete Protocol: Document 05/01/22 09:43 CAB (Rec: 05/01/22 10:34 CAB [id number]) Pre-Anesthesia Assessment Patient Information Reviewed Via Phone Assessment Assessment Completed With Patient Diagnostic Results BMP/CMP,CBC,EKG Comment Labs/EKG @ Primary Care Provider Krissy Ramirez Medical Clearance Received Yes Seen Specialist in Last 12 Months Yes Specialist Seen Retail Wireless Sales Representative,Orthopedist Comment PCP pre-op 04/15/22, clearance form 04/13/22 scanned Primary Language Libyan Preferred Language Libyan Automatic Pattern Edger Required No Height 157.48 cm Weight 73.028 kg Body Mass Index (BMI) 29.4 Hearing Ability Normal Visual Assist Glasses Dentition Type Teeth, Natural Present,Teeth, Missing Barriers to Learning None Hx Anesthesia Reactions No: Metabolizes quickly but no complications Hx Family Anesthesia Reaction Yes: Sister PONV, daughter wakes combative Hx Malignant Hyperthermia No Hx Blood Transfusions No Anesthesia Review Requested No Fleet Manager/Dispatch No alcohol intake current alcohol intake frequency holidays/special occasions only Smoking Status Never smoker Substance Use Type does not use Musculoskeletal Symptoms Abnormal Gait,Difficulty Walking,Joint Pain,Limited Range of Motion History of Falling (Recent or History of No ) Patient is completely paralyzed or No completely immobile Prosthesis or Orthotic Device Cane,Front Wheel Walker Mental Status Oriented to own ability Is patient on oxygen? No Does patient have GAONA/SOB Yes: GAONA, Pulmonary HTN Hx Sleep Apnea Yes CPAP/BIPAP use prescribed not used Currently Taking a Beta Barak Yes: Metoprolol Can You Climb a Flight of Stairs Without No SOB Hx Chest Pain No Hx SOB Yes: GAONA, Pulmonary HTN Hx Syncope or Dizziness No Anti-Coagulant Therapy Yes: Warfarin-Hold 5 days prior, Lovenox bridging per PCP-hold dos Has a Retail Wireless Sales Representative Yes: Last visit 3/18/21 scanned to record Retail Wireless Sales Representative name Dr Mazariegos Cardiac Testing No Hx Pacemaker/ICD No Pacemaker Rep Required? No Diet Type At Home Regular Dysphagia Yes: Allergy to diary, occasional swallowing large pills Gastrointestinal Symptoms Diarrhea Bladder Pattern Frequency,Nocturia,Urgency Urinary Catheter Present No Hx Urinary Self Catheterization No Diabetes No Patient No Lactating No Hx Drug Resistant Organism No Presence of External or Internal Medical Yes: Bilateral knees, heart Devices valve, right knee jessica, bilat eye IOLs, left toe Received a COVID vaccine? Yes Received all doses? Yes Marital Status Lives With spouse Current Living Arrangements Apartment/Condo Number of Floors (Floors) One Floor Support System Spouse Does the Patient Have Assistance After Yes Surgery Patient Discharge Plan Description Return Home Comment Pt not advised on length of stay per surgeon Feels Safe in Current Environment Yes Been Physically Hurt or Threatened By a No Person in Current Environment Do you have thoughts of harming yourself None or others? Are you currently considering suicide? No Do you have a plan to hurt yourself or No Plan others? Do You Have Any Spiritual Beliefs That No May Affect Your HC Choices? Do You Have Any Cultural Practices That No May Affect Your HC Choices? Who Can We Speak to About Patient's Care Family, friends Identifying Code for Release of Patient Declines to issue Information Health Care Proxy/Next of Kin Bandar () Health Care Proxy Emergency Contact Name Bandar Hardin- Emergency Contact Advance Directives? Yes: on file Advance Directives on File Yes Power of Casting Cleaner No
[2022-06-05] MEDS: WARFARIN 5 MG TABLET 7.5 MG PO (10:22)
--- NOTE | 2022-06-05 11:00 | PT.IIE ---
Current Diagnoses Other specific arthropathies, not elsewhere classified, right shoulder (06/04/22) Presence of unspecified artificial shoulder joint (06/04/22) Surgery Performed Operation Date: 06/04/22 13:00 Actual Procedures p Total Shoulder Arthroplasty - Reverse(Right) - Huan Fong MD Surgical History (Last Reviewed 06/04/22 @ 12:35 by Huan Fong MD) Anesthesia H/O mitral valve replacement (01/16/09) Hx of bilateral cataract extraction Hx of plastic surgery Hx of toe surgery Hx of tubal ligation S/P left unicompartmental knee replacement S/P right unicompartmental knee replacement Status post appendectomy (~1980) Status post bunionectomy (~2010) Status post colonoscopy (~2006) Surgical procedure planned (~1996) Medical History (Last Reviewed 06/04/22 @ 12:35 by Huan Fong MD) Abnormal Pap smear of cervix Allergy to casein Anxiety (~1979) Aortic regurgitation Carpal tunnel syndrome (~1987) Chickenpox Class 1 obesity (08/20/14) COVID-19 virus infection (09/2021) Depression (~1966) Depression, major, recurrent Fibromyalgia Foot pain (~2007) Fracture (~2007) GERD (gastroesophageal reflux disease) (~2008) Heavy menstrual period (~1994) Hip pain History of recurrent ear infection Hyperlipidemia Hypertension IBS (irritable bowel syndrome) (~2014) Measles (~195) Migraines (~1959) Mumps MIHAI (obstructive sleep apnea) Osteoarthritis (~1999) Osteopenia (~1997) Osteoporosis Pulmonary hypertension Rheumatic fever (~1953) Right rotator cuff tendonitis Seasonal allergies Sinus tachycardia Tear of right gluteus medius tendon Urinary incontinence (~2002) Vision abnormalities Physical Therapy Inpatient Evaluation/Re-Eval M1 PT/OT-IP Prior Functional Status Start: 06/05/22 11:39 Freq: NEEDED Status: Discharge Protocol: Document 06/05/22 11:00 DLPer (Rec: 06/05/22 11:58 DLM [id number]) Medical Review Prior Functional Status Medical History Reviewed Yes Diet/Fluid Consistency Regular Communication WNL, glasses Mobility and Gait Independent without device Activities of Daily Living and IADL's Independent 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 2 without a rail Home Environment Standard Height Toilet,Walk in Shower,Built-In Shower Seat Home Equipment Straight Cane,Grab Bars Near Toilet,Grab Bars In Shower Additional Social History Comment Her is blind in one eye and has low vision in the other eye. A friend will be giving her a ride home. M2 PT-IP Current Condition Start: 06/05/22 11:39 Freq: NEEDED Status: Discharge Protocol: Document 06/05/22 11:00 DLM (Rec: 06/05/22 11:58 DLM [id number]) Physical Therapy Current Condition Current Condition Evaluation Date 06/05/22 Treatment Diagnosis right Total shoulder arthroplasty, impaired mobility/gait Onset Date 06/04/22 M3 PT-IP Subjective Start: 06/05/22 11:39 Freq: NEEDED Status: Discharge Protocol: Document 06/05/22 11:00 DLM (Rec: 06/05/22 11:58 DL [id number]) Subjective Physical Therapy Visit Type Type Initial Evaluation Visit Start Time 10:00 Visit Stop Time 11:00 Total Visit Minutes 60 Number of MAINTENANCE MECHANIC ELEVATORS Visits 0 Physical Therapy Visit Comments Patient Comments She feels she has a good plan for home. She got about one hour of sleep last night. Patient Goals Discharge plan Therapy Pain Assessment Pain When Pain Assessed During Mobility Pain Present Pain Present Pain Reported Location Right Shoulder Intensity 5 Scale Used Numeric (0 - 10) Description Aching Pain Behaviors Facial Grimacing,Guarding Pain Management Techniques Apply Cold,Re-positioning M4 PT-IP Mobility and Gait Start: 06/05/22 11:39 Freq: NEEDED Status: Discharge Protocol: Document 06/05/22 11:00 DLM (Rec: 06/05/22 11:58 DLM [id number]) PT-Bed Mobility Assessment Supine to Sit Supine to Sit Independent Sit to Supine Sit to Supine Independent Scooting Scooting to Edge of Bed Independent PT-Transfer Assessment Sit to and From Stand Sit to and from Stand Standby Assistance Equipment Transfer Assistive Device Small Based Quad Cane Transfers Transfer Destination Bed,Chair Transfer Technique Stand Step Pivot Transfer Ability Level of Assist Standby Assistance,Use of Upper Extremities Comments Mobility Comments She feels well in sitting but gets tired fast and mild light -headedness in standing Vital signs: BP 108/59, HR 84, sitting BP 102/60, HR 85, standing Gait Assessment Gait Gait Assistance Required: Standby Assistance Distance (Feet) 60 Assistive Devices Assistive Device Gait Belt,Small Based Quad Cane Factors Limiting Gait Function Factors Limiting Gait Function Decreased Activity Tolerance, Decreased Strength,Limited Range of Motion,Pain Comments Gait Comments pt needs a cane to manage her balance today, mild light- headedness when up on her feet too long that resolves with seated rest Stair Climbing Assessment Evaluation Level of Assist On Stairs Standby Assistance Devices Stair Climbing Assistive Devices Right Railing Technique/Endurance Stair Climbing Direction Ascend and Descend Stair Climbing Technique Step Over Step,Step to Step Number of Steps Climbed 3 Query Text: Stair Climbing Set # Repetitions (reps) 1 Comments Stair Climbing Comments good functional strength for stairs but needs UE support of rail or person to manage her balance during stairs, pt reports her or friend can assist her at home PT-Balance Assessment Sitting Balance and Reactions Static Sitting Balance Ability Normal Dynamic Sitting Balance Ability Normal Standing Balance and Reactions Static Standing Balance Ability Good Dynamic Standing Balance Ability Good Device Used with small based quad cane M5 PT-IP Objective Assessments Start: 06/05/22 11:39 Freq: NEEDED Status: Discharge Protocol: Document 06/05/22 11:00 DLM (Rec: 06/05/22 11:58 DL [id number]) Orientation Orientation/Cognition Level of Alertness Alert Orientation Name,Age,Birthday,Month,Date, Year,Day of Week,Place, Situation Language Function Ability No Deficits Noted Safety Awareness Understands Safety Issues Memory Description No Deficits Noted Gross Range of Motion Upper Extremity ROM Assessment Right Impaired Impairments no use of shoulder post-op, pt can hang it to manage ADL's, pain with elbow movements today, wrist and hand are WFL Lower Extremity ROM Assessment Within Functional Limits Strength Upper Extremity Strength Assessment Right Impaired Shoulder no functional use Elbow needs assist for flexion due to shoulder pain Wrist moving actively Hand moving actively Lower Extremity Strength Assessment Within Functional Limits Coordination Assessment Gross Coordination Gross Coordination WNL Muscle Tone Muscle Tone WNL Yes M6 PT-IP Treatment Start: 06/05/22 11:39 Freq: NEEDED Status: Discharge Protocol: Document 06/05/22 11:00 DLM (Rec: 06/05/22 11:58 DL [id number]) Physical Therapy Treatment Exercises Exercises Shoulder Pendulums,Elbow Flexion/Extension,Wrist ROM, Hand ROM Education Education Provided Safety Other Treatments Other Treatment Performed no family/friends present this visit, training completed only with pt, she agrees to use cane at home to manage her balance and fall risks M7 PT-IP Assessment and Plan Start: 06/05/22 11:39 Freq: NEEDED Status: Discharge Protocol: Document 06/05/22 11:00 DLM (Rec: 06/05/22 11:58 DLM [id number]) PT Summary Assessment and Plan Potential Rehabilitation Potential Good Status of Condition at Evaluation Evolving Summary Impairments Pain,ROM,Strength,Balance,Gait ,Activity Tolerance Progress Towards Goals Safe For Discharge Assessment Summary Arleen is alert and resting in bed. She reports her shoulder pain is getting worse. She was up earlier today with nursing but got very fatigued with trying to stand too long. She reports feeling well sitting and in bed. Pt is using a small based quad cane to manage her balance today. Vital signs were checked and no significant drop noted from sitting to standing. She reports having a good support system at home. She agrees to continue to use a cane at home to manage her balance. She appears safe to discharge home when medically cleared. Frequency of Treatment Frequency Of Treatment Discharge Treatment Plan Other Recommendations and Next Treatment training completed this visit Focus Precautions Shoulder Precautions Sling,Pendulums Other Precautions pt was instructed by surgeon to wear sling for comfort during day but she has to wear it at night Recommendations To Nursing Amount of Assist Needed Standby Assistance Discharge Recommendations PT Discharge Recommendations Home with Assistance Other Discharge Recommendations her friend will help her get into the house, she has a supportive , she can use her cane at home Transportation Needs at Discharge Private Vehicle
--- NOTE | 2022-06-05 11:48 | PC.NURSE ---
Pt is A&OX4, on RA VSS, afebrile. She reports full sensation to fingers and arm R UE, movement +2 pulses distally with <2 sec capillary refill. Her arm is in a sling. Aquacel c/d/i. She reports pain increasing this a.m. to 6/10 as nerve block is wearing off. She is able to eat breakfast and participate with PT. She hs hemovac drain removed. She is cleared medically by ortho and by PT/OT to safely discharge home after sessions.She reports pain intensified after therapy to 6/10 well controlled with prn 10mg oxycodone. She verbalizes understanding of activity restrictions to R shoulder, site care, s/sx of infection/complication, medications and follow up appointments. She is escorted via w/ch by SOIL CONSERVATION AIDE with all of her belongings to private vehicle with family friend and spouse for discharge home today at approximately 1140 a.m.
--- NOTE | 2022-06-05 12:09 | CM.DPNOTE ---
Faxed clinicals (includes hh order & f2f) to [facility] mc Veloz for PT/ENCEPHALOGRAPHER. Called and spoke to Tami at [facility] who received the fax and said they can accept this patient. I faxed her PT notes afterwards and received fax conf. Cielo Amos CM Assist.
== END 2022-06-05 11:40 | disposition home health service (06) | DRG 483 ==
PROVIDERS: Admitting Provider Orthopaedic Surgery; PCP Family Medicine; Referring Provider Orthopaedic Surgery; Visit Provider Orthopaedic Surgery
PROC: 0RRJ00Z Replacement of Right Shoulder Joint with Reverse Ball and Socket Synthetic Substitute, Open Approach (ICD-10-PCS; CPT 23472; principal; 2022-06-04 13:00)
DX: M12.811 Other specific arthropathies, not elsewhere classified, right shoulder (principal); M75.121 Complete rotator cuff tear or rupture of right shoulder, not specified as traumatic; F32.9 Major depressive disorder, single episode, unspecified; K21.9 Gastro-esophageal reflux disease without esophagitis; I10 Essential (primary) hypertension; Z79.01 Long term (current) use of anticoagulants; Z95.2 Presence of prosthetic heart valve; Z20.822 Contact with and (suspected) exposure to COVID-19
CPT/HCPCS: 36415; 64415; 85027; 85610; 87635; 97110; 97162; 97530; C1776; C9803; J1100; J1650; J2250; J2405; J2704; J3010

== ENCOUNTER → 2022-06-10 08:24 | Outpatient (CLI) | payer MEDICARE, SELFPAY ==
[2022-06-04 15:10] VITALS: BMI 31.6
[2022-06-10 09:12] LABS: INR 2.3 (0.9-1.3); Prothrombin Time 26.3 SECONDS (10.1-12.7)
== END ==
PROVIDERS: PCP Family Medicine; Referring Provider Family Medicine; Visit Provider Family Medicine
DX: Z79.01 Long term (current) use of anticoagulants (principal); Z95.2 Presence of prosthetic heart valve
CPT/HCPCS: 36415; 85610

== ENCOUNTER → 2022-08-04 11:43 | Outpatient (CLI) | payer MEDICARE, SELFPAY ==
[2022-06-04 15:10] VITALS: BMI 31.6
[2022-08-04 13:38] LABS: Add Manual Diff / Slide Review NO; Basophils Absolute Auto 0 /uL (0-100); Basophils Percent Auto 0.8 % (0-2); Eosinophils Absolute Auto 300 /uL (0-450); Eosinophils Percent Auto 5.6 % (2-4); Hematocrit 35.4 % (36-46); Hemoglobin 11.9 g/dL (12.0-16.0); Lymphocytes Absolute Auto 1300 /uL (1100-4500); Lymphocytes Percent Auto 25.4 % (25-40); Mean Corpuscular HGB Conc 33.6 % (30-36); Mean Corpuscular Hemoglobin 29.6 PG (26-34); Mean Corpuscular Volume 88.2 fL (80-100); Monocytes Absolute Auto 500 /uL (0-900); Monocytes Percent Auto 9.7 % (3-14); Neutrophils Absolute Auto 2900 /uL (1500-7000); Neutrophils Percent Auto 58.5 % (50-75); Platelet Count 215 X10^3/uL (150-400); Red Blood Cell Count 4.01 X10^6/uL (4.0-5.2); Red Cell Distribution Width 15.4 % (11.6-14.8); White Blood Cell Count 4.9 X10^3/uL (4.5-11.0)
[2022-08-04 14:08] LABS: HEMOLYSIS < 15 (0-50); Iron 57 ug/dL (37-170)
[2022-08-04 14:18] LABS: Percent Iron Saturation 15 % (15-50); Total Iron Binding Capacity 384 ug/dL (265-497); Transferrin 286 mg/dL (206-381)
[2022-08-04 14:42] LABS: Ferritin 27 ng/mL (11-264)
== END ==
PROVIDERS: PCP Family Medicine; Referring Provider Family Medicine; Visit Provider Family Medicine
DX: D64.9 Anemia, unspecified (principal)
CPT/HCPCS: 36415; 82728; 83540; 83550; 85025

== ENCOUNTER → 2022-11-03 07:07 | Outpatient (CLI) | payer MEDICARE, SELFPAY ==
[2022-06-04 15:10] VITALS: BMI 31.6
[2022-11-03 08:47] LABS: Add Manual Diff / Slide Review NO; Basophils Absolute Auto 0 /uL (0-100); Basophils Percent Auto 0.9 % (0-2); Eosinophils Absolute Auto 300 /uL (0-450); Eosinophils Percent Auto 7.8 % (2-4); Hemoglobin 13.5 g/dL (12.0-16.0); Lymphocytes Absolute Auto 1000 /uL (1100-4500); Lymphocytes Percent Auto 28.4 % (25-40); Mean Corpuscular HGB Conc 33.7 % (30-36); Mean Corpuscular Hemoglobin 29.7 PG (26-34); Mean Corpuscular Volume 88.1 fL (80-100); Monocytes Absolute Auto 400 /uL (0-900); Monocytes Percent Auto 11.4 % (3-14); Neutrophils Absolute Auto 1700 /uL (1500-7000); Neutrophils Percent Auto 51.5 % (50-75); Platelet Count 194 X10^3/uL (150-400); Red Blood Cell Count 4.54 X10^6/uL (4.0-5.2); Red Cell Distribution Width 17.3 % (11.6-14.8); White Blood Cell Count 3.4 X10^3/uL (4.5-11.0)
[2022-11-03 09:17] LABS: HEMOLYSIS < 15 (0-50); Iron 63 ug/dL (37-170)
[2022-11-03 09:19] LABS: BUN Creatinine Ratio 19.7 (6-22); Blood Urea Nitrogen 12 mg/dL (7-17); Calcium 9.5 mg/dL (8.4-10.2); Carbon Dioxide 29 mmol/L (22-32); Chloride 103 mmol/L (98-107); Cholesterol 241 mg/dL (140-199); Estimated Glomerular Filt Rate > 60 mL/min (>60); Glucose 78 mg/dL (80-110); HDL Cholesterol 58 mg/dL (40-60); HEMOLYSIS < 15 (0-50); LDL Cholesterol Calculated 158 mg/dL (<100); Potassium 4.3 mmol/L (3.4-5.1); Sodium 137 mmol/L (137-145); Triglycerides 125 mg/dL (35-150)
[2022-11-03 09:25] LABS: High Sensitivity CRP - Cardiac 5.9 mg/L (1.0-3.0)
[2022-11-03 09:28] LABS: Percent Iron Saturation 16 % (15-50); Total Iron Binding Capacity 401 ug/dL (265-497); Transferrin 300 mg/dL (206-381)
[2022-11-03 09:50] LABS: Cortisol AM (Before 10AM) 10.6 ug/dL (4.46-22.7)
[2022-11-03 09:54] LABS: Ferritin 16 ng/mL (11-264)
== END ==
PROVIDERS: PCP Family Medicine; Referring Provider Family Medicine; Visit Provider Family Medicine
DX: D64.9 Anemia, unspecified (principal); E78.5 Hyperlipidemia, unspecified; R00.0 Tachycardia, unspecified; K21.9 Gastro-esophageal reflux disease without esophagitis; G47.33 Obstructive sleep apnea (adult) (pediatric); F33.9 Major depressive disorder, recurrent, unspecified; K58.0 Irritable bowel syndrome with diarrhea; Z79.01 Long term (current) use of anticoagulants
CPT/HCPCS: 36415; 80048; 80061; 82533; 82728; 83540; 83550; 84443; 85025; 86140

== ENCOUNTER → 2023-01-01 11:39 | Outpatient (CLI) | payer MEDICARE, SELFPAY ==
[2022-06-04 15:10] VITALS: BMI 31.6
[2023-01-01 12:29] LABS: INR 3.3 (0.9-1.3)
[2023-01-01 12:30] LABS: Prothrombin Time 38.4 SECONDS (10.1-12.7)
== END ==
PROVIDERS: PCP Family Medicine; Referring Provider Family Medicine; Visit Provider Family Medicine
DX: Z79.01 Long term (current) use of anticoagulants (principal); G45.9 Transient cerebral ischemic attack, unspecified
CPT/HCPCS: 36415; 85610

== ENCOUNTER 2023-01-27 17:22 | Emergency (ER) | payer MEDICARE, SELFPAY ==
[2022-06-04 15:10] VITALS: BMI 31.6
[2023-01-27 17:25] VITALS: BP 206/104; PULSE 88; RESP 20; TEMP 36.7; O2SAT 96; BMI 28.0
--- NOTE | 2023-01-27 17:26 | DI.CT.S_ITS ---
PROCEDURE: CT CERVICAL SPINE WO CON INDICATIONS: fall on thinners TECHNIQUE: Noncontrast 3 mm thick sections acquired from the skull base to the T4 level. Sagittal and coronal reformats were then constructed. For radiation dose reduction, the following was used: automated exposure control, adjustment of mA and/or kV according to patient size. COMPARISON: [facility], CT, C-SPINE WITHOUT CONTRAST, 08/25/2011, 9:50. FINDINGS: Image quality: Excellent. Bones: No fractures or dislocations. Grade 1 anterolisthesis of C4 on C5. Moderate degenerative disease at C5-C 6 and C6-C7. Bilateral facet arthropathy, most pronounced at C3-C4 and C4-C5. Severe atlantoaxial joint degeneration. Visualized superior ribs are intact. Soft tissues: Prevertebral soft tissues are normal in thickness. No paravertebral hematomas. No apical pneumothoraces. IMPRESSION: 1. No cervical spine fractures. 2. Degenerative changes as described. Dictated by: Gamaliel Garcia M.D. on 01/27/2023 at 17:59 Approved by: Gamaliel Garcia M.D. on 01/27/2023 at 18:01
--- NOTE | 2023-01-27 17:26 | DI.CT.S_ITS ---
PROCEDURE: CT HEAD/BRAIN WO CON INDICATIONS: fall on thinners TECHNIQUE: Noncontrast 4.5 mm thick angled axial sections acquired from the foramen magnum to the vertex, with coronal and sagittal reformats. For radiation dose reduction, the following was used: automated exposure control, adjustment of mA and/or kV according to patient size. COMPARISON: [facility], CT, CT CERVICAL SPINE WO CON, 01/27/2023, 17:45. [facility], CT, CT HEAD/BRAIN WO CON, 11/30/2019, 9:58. FINDINGS: Image quality: Excellent. CSF spaces: Basal cisterns are patent. No extra-axial fluid collections. The ventricles are symmetric in size and shape. Brain: No intracranial bleeds or masses. There is cerebral volume loss for age, with resultant ventricular and sulcal prominence. There are periventricular and deep white matter chronic small vessel ischemic changes. There is intracranial internal carotid artery atherosclerosis. Skull and face: Bilateral nasal bone fractures. There is fracture of the medial wall of the right maxillary sinus. Calvarium and visualized facial bones appear intact, without suspicious lesions. Pre frontal subscalp hematoma at midline. Sinuses: The right maxillary sinus and the ethmoidal sinus are opacified. The mastoids are clear. IMPRESSION: 1. No acute intracranial pathology. 2. Bilateral nasal bone fractures 3. Fracture of the medial wall of the right maxillary sinus. There is opacification of the right ethmoidal right maxillary sinuses, likely secondary to hematoma. Dictated by: Gamaliel Garcia M.D. on 01/27/2023 at 17:54 Approved by: Gamaliel Garcia M.D. on 01/27/2023 at 17:58
--- NOTE | 2023-01-27 17:26 | DI.RAD.S_ITS ---
PROCEDURE: XR WRIST LT MIN 3V INDICATIONS: fall with wrist pain TECHNIQUE: 4 views of the wrist were acquired. COMPARISON: None. FINDINGS: Bones: Suspect nondisplaced fracture at the base of the 5th metacarpal. No suspicious bony lesions. Severe degenerative joint disease at the 1st carpometacarpal joint. Soft tissues: No suspicious soft tissue calcifications. IMPRESSION: 1. Suspect nondisplaced 5th metacarpal base fracture. 2. Severe degenerative joint disease. Dictated by: Gamaliel Garcia M.D. on 01/27/2023 at 20:03 Approved by: Gamaliel Garcia M.D. on 01/27/2023 at 20:05
--- NOTE | 2023-01-27 17:26 | DI.RAD.S_ITS ---
PROCEDURE: XR SHOULDER RT MIN 2V INDICATIONS: shoulder pain after fall TECHNIQUE: 3 views of the shoulder were acquired. COMPARISON: [facility] [place], CR, XR SHOULDER 2+ VIEWS RIGHT, 07/13/2022, 13:56. [facility] [place], CR, XR SHOULDER 2+ VIEWS RIGHT, 12/07/2022, 8:31. FINDINGS: Bones: Right shoulder arthroplasty. No fractures or dislocations. No suspicious bony lesions. Visualized ribs appear intact. Soft tissues: No suspicious soft tissue calcifications. IMPRESSION: 1. No acute osseous abnormality. 2. Right shoulder arthroplasty. Dictated by: Gamaliel Garcia M.D. on 01/27/2023 at 20:02 Approved by: Gamaliel Garcia M.D. on 01/27/2023 at 20:03
[2023-01-27 18:25] VITALS: BP 170/82; PULSE 81; RESP 16; O2SAT 93
--- NOTE | 2023-01-27 18:42 | ED.FALL ---
HPI - Fall General Chief Complaint: Fall Stated Complaint: Fall Time Seen by Provider: 01/27/23 17:26 Source: patient and EMS Mode of arrival: EMS Limitations: no limitations History of Present Illness HPI Narrative: 71-year-old female with history of hypertension, mitral valve disease on warfarin. Patient states today she was with her neighbors puppy who wrapped a leash around her ankles causing her to trip and fall. She fell forward on her forehead she had her glasses on what she states broke. She has a small puncture on her anterior forehead. She states her tetanus is up-to-date. Denies loss of consciousness, no neck pain. Describes some shoulder pain on the right and hand pain on the left. Patient states no back pain. No chest pain or shortness of breath. No nausea or vomiting. No other GI or urinary symptoms. No pelvic or lower extremity pain. Patient states she has multiple allergies. States last INR check was about a month ago. She defers anything for pain at this time. Related Data Home Medications Medication Instructions Recorded Confirmed aspirin 81 mg tablet,delayed 81 mg PO QDAY ##0 08/12/16 11/02/22 release Previous Rx's Medication Instructions Recorded warfarin 7.5 mg tablet See Rx Instructions .Route 06/12/22 .COMPLEX #120 tabs fluoxetine 10 mg capsule 10 mg PO DAILY #90 caps 11/02/22 omeprazole 40 mg capsule,delayed 40 mg PO DAILY #90 caps 11/19/22 release metoprolol succinate 50 mg 50 mg PO QPM #30 tabs 12/14/22 tablet,extended release 24 hr Allergies Allergy/AdvReac Type Severity Reaction Status Date / Time mometasone furoate Allergy Severe ANAPHYLAXIS Verified 01/27/23 17:40 [MOMETASONE FUROATE] adhesive tape [ADHESIVE TAPE] Allergy Intermediate Blisters Verified 01/27/23 17:40 adhesive [ADHESIVE] Allergy Mild LOCAL Verified 01/27/23 17:40 HIVES,BLISTERS diclofenac [From VOLTAREN] Allergy Mild HIVES Verified 01/27/23 17:40 latex [LATEX] Allergy Mild HIVES,BLIST Verified 01/27/23 17:40 ERS ezetimibe [EZETIMIBE] AdvReac Severe Muscle Verified 01/27/23 17:40 pain, spasms nirmatrelvir AdvReac Severe loss of Verified 01/27/23 17:40 [From Paxlovid (EUA)] consciousness ritonavir AdvReac Severe loss of Verified 01/27/23 17:40 [From Paxlovid (EUA)] consciousness codeine [CODEINE] AdvReac Mild HALLUCINATI Verified 01/27/23 17:40 ONS gluten [GLUTEN] AdvReac Mild IMMEDIATE Verified 01/27/23 17:40 DIARRHEA simvastatin [SIMVASTATIN] AdvReac Mild MYALGIAS Verified 01/27/23 17:40 soy AdvReac Mild SOY MILK - Verified 01/27/23 17:40 UPSET STOMACH Grmafln-VQI-QiW Reductase AdvReac Mild MYALGIAS Verified 01/27/23 17:40 Inhibitor [[id number] REDUCTASE INHIBITOR] Milk Containing Products AdvReac Unknown CRAMPING,DRINKS Verified 01/27/23 17:40 (Dairy) ALMOND [MILK CONTAINING PRODUCTS] MILK Review of Systems Review of Systems ROS Unobtainable: All systems reviewed & are unremarkable except as noted in HPI and below Patient History Medical History Anticoagulation monitoring, INR range 2.5-3.5 COVID-19 virus infection (09/2021) MIHAI (obstructive sleep apnea) Right rotator cuff tendonitis Aortic regurgitation Depression, major, recurrent Tear of right gluteus medius tendon Osteoporosis Hip pain Allergy to casein Pulmonary hypertension Vision abnormalities Seasonal allergies Osteoarthritis (~1999) Depression (~1966) Anxiety (~1979) Osteopenia (~1997) Fracture (~2007) Foot pain (~2007) Carpal tunnel syndrome (~1987) Rheumatic fever (~1953) Chickenpox Measles (~1951) Mumps History of recurrent ear infection Urinary incontinence (~2002) IBS (irritable bowel syndrome) (~2014) GERD (gastroesophageal reflux disease) (~2008) Heavy menstrual period (~1994) Abnormal Pap smear of cervix Fibromyalgia Migraines (~1959) Sinus tachycardia Hypertension Hyperlipidemia Class 1 obesity (08/20/14) prison current use of anticoagulant therapy Surgical History Status post total shoulder arthroplasty Hx of bilateral cataract extraction S/P right unicompartmental knee replacement Hx of plastic surgery S/P left unicompartmental knee replacement Hx of toe surgery Hx of tubal ligation Anesthesia H/O mitral valve replacement (01/16/09) Surgical procedure planned (~1996) Status post colonoscopy (~2006) Status post bunionectomy (~2010) Status post appendectomy (~1980) Family History Brother Age: 63 Hypertension High cholesterol Child Age: 51 Mental health problem Father High cholesterol Heart attack Social History household members: spouse Smoking Status: Never smoker alcohol intake: current substance use type: does not use Smoking Status: Never smoker alcohol intake frequency: a few times a month Substance Use Type: does not use Exam Narrative Exam Narrative: GEN: Patient appears in mild distress. HEAD: Patient has significant ecchymosis of her forehead, she has small puncture over the forehead was using slightly , no raccoon/Koroma sign. NECK: Nontender, painless range of motion, trachea midline Negative for Nexus criteria, there is no midline line tenderness, distracting injury, altered mental status, neuro deficit, recent EtOH. EYES: PERRLA, EOMI ENT: See above, trachea is midline, TM's are normal no hemotypanum, Nares are clear, no septal hematoma, no dental or oral injury, airway is normal and with normal occlusion, No bony tenderness RESP: Chest is nontender and has symmetric movement, no ecchymosis, breath sounds are normal no crackles, wheezes or rales CVS: Heart sounds are normal, no murmur noted, No JVD. ABG/GI: Nontender, soft, normal bowel sounds, no distention, no organomegaly, pelvic rock is negative NEURO: Oriented AOx3, neuro is grossly intact, sensation and motor is normal all 4 extremities moving, cranial nerves II through XII are intact, GCS is 15 PSYCH: Normal mood and affect SKIN: Intact except as noted above, warm and dry, no crepitus and without decubitus BACK: No CVA tenderness, no vertebral tenderness, no step-off's, no crepitus EXT: Patient has pain over the right shoulder but does have range of motion, she also has pain of the left metatarsal there is some mild ecchymosis, mild swelling but normal range of motion the entire left upper extremity. Patient has 2+ pulses bilateral upper extremities., hips are nontender, no pedal edema, normal color and temperature, normal range of motion of extremities with normal tendon exam, 2+ pulses in all four extremities Initial Vital Signs Initial Vital Signs: Vital Signs Temperature 98.1 F 01/27/23 17:25 Pulse Rate 88 01/27/23 17:25 Respiratory Rate 20 01/27/23 17:25 Blood Pressure 206/104 H 01/27/23 17:25 Pulse Oximetry 96 01/27/23 17:25 Oxygen Delivery Method Room Air 01/27/23 17:[address] Head Rule Patient on blood thinners: Yes Age greater or equal to 65 years: Yes GCS [place] coma scale eye opening: Spontaneous [place]ba coma scale verbal response: Orientated [place] coma scale motor response: Obey commands [place] coma scale total score: 15 Nexus Score for C-Spine Focal Neurologic deficit present: No Midline spinal tenderness present: No Altered level of conciousness present: No Intoxication present: No Distracting Injury Present: No Nexus Criteria for C-spine: 0 Course Orders Ordered: ED Orders 01/27/23 17:20 CBC Auto Diff [Complete Blood Count AUTO DIFF] Stat CMP [Comprehensive Metabolic Panel] Stat Prothrombin Time INR Stat 01/27/23 17:26 CT cervical spine wo con Stat CT head/brain wo con Stat XR shoulder RT min 2V Stat XR wrist LT min 3V Stat Vital Signs Vital signs: Vital Signs - 8 hr 01/27/23 20:56 Pulse Rate 88 Respiratory Rate 16 Blood Pressure 170/84 H Pulse Oximetry 96 Oxygen Delivery Method Room Air MDM - Fall Lab Data 01/27/23 17:20 01/27/23 17:20 Labs: Lab Results 01/27/23 Range/Units 17:20 WBC 6.4 (4.5-11.0) X10^3/uL RBC 4.32 (4.0-5.2) X10^6/uL Hgb 12.9 (12.0-16.0) g/dL Hct 38.9 (36-46) % MCV 89.9 (80-100) fL MCH 29.9 (26-34) PG MCHC 33.3 (30-36) % RDW 14.8 (11.6-14.8) % Plt Count 230 (150-400) X10^3/uL Neut % (Auto) 53.0 (50-75) % Lymph % (Auto) 28.3 (25-40) % [place] % (Auto) 13.3 (3-14) % Eos % (Auto) 4.7 H (2-4) % Baso % (Auto) 0.7 (0-2) % Neut # (Auto) 3400 (7629-0200) /uL Lymph # (Auto) 1800 (4247-8769) /uL [place] # (Auto) 800 (0-900) /uL Eos # (Auto) 300 (0-450) /uL Baso # (Auto) 0 (0-100) /uL PT 43.9 H (10.1-12.7) SECONDS INR 3.8 H (0.9-1.3) Sodium 136 L (137-145) mmol/L Potassium 4.0 (3.4-5.1) mmol/L Chloride 103 (98-107) mmol/L Carbon Dioxide 28 (22-32) mmol/L BUN 12 (7-17) mg/dL Creatinine 0.65 (0.52-1.04) mg/dL Estimated GFR > 60 (>60) mL/min BUN/Creatinine Ratio 18.5 (6-22) Glucose 87 (80-110) mg/dL Calcium 9.6 (8.4-10.2) mg/dL Total Bilirubin 0.6 (0.2-1.3) mg/dL AST 34 (14-36) IU/L ALT 22 (<35) IU/L Alkaline Phosphatase 93 (38-126) U/L Total Protein 7.7 (6.3-8.2) g/dL Albumin 4.3 (3.5-5.0) g/dL Globulin 3.4 (1.7-4.1) g/dL Albumin/Globulin Ratio 1.3 (1.0-2.8) Imaging Data CT scan - head: Radiologist's Impression: [address] [address] [address] Scan Report Signed Patient: Arleen Amador MR#: [id number] : 1945 Acct:[id number] Age/Sex: 77 / F Date of Service: 01/27/23 Loc: ED Accession Number: [id number] Procedure: CT head/brain wo con Ordering Provider: Ant Sesay D.O. PROCEDURE: CT HEAD/BRAIN WO CON INDICATIONS: fall on thinners TECHNIQUE: Noncontrast 4.5 mm thick angled axial sections acquired from the foramen magnum to the vertex, with coronal and sagittal reformats. For radiation dose reduction, the following was used: automated exposure control, adjustment of mA and/or kV according to patient size. COMPARISON: [facility], CT, CT CERVICAL SPINE WO CON, 01/27/2023, 17:45. [facility], CT, CT HEAD/BRAIN WO CON, 11/30/2019, 9:58. FINDINGS: Image quality: Excellent. CSF spaces: Basal cisterns are patent. No extra-axial fluid collections. The ventricles are symmetric in size and shape. Brain: No intracranial bleeds or masses. There is cerebral volume loss for age, with resultant ventricular and sulcal prominence. There are periventricular and deep white matter chronic small vessel ischemic changes. There is intracranial internal carotid artery atherosclerosis. Skull and face: Bilateral nasal bone fractures. There is fracture of the medial wall of the right maxillary sinus. Calvarium and visualized facial bones appear intact, without suspicious lesions. Pre frontal subscalp hematoma at midline. Sinuses: The right maxillary sinus and the ethmoidal sinus are opacified. The mastoids are clear. IMPRESSION: 1. No acute intracranial pathology. 2. Bilateral nasal bone fractures 3. Fracture of the medial wall of the right maxillary sinus. There is opacification of the right ethmoidal right maxillary sinuses, likely secondary to hematoma. Dictated by: Gamaliel Garcia M.D. on 01/27/2023 at 17:54 Approved by: Gamaliel Garcia M.D. on 01/27/2023 at 17:58 CT - cervical spine: Radiologist's Impression: [address] [address] [address] Scan Report Signed Patient: Arleen Amador MR#: [id number] : 1945 Acct:[id number] Age/Sex: 77 / F Date of Service: 01/27/23 Loc: ED Accession Number: [id number] Procedure: CT cervical spine wo con Ordering Provider: Ant Sesay D.O. PROCEDURE: CT CERVICAL SPINE WO CON INDICATIONS: fall on thinners TECHNIQUE: Noncontrast 3 mm thick sections acquired from the skull base to the T4 level. Sagittal and coronal reformats were then constructed. For radiation dose reduction, the following was used: automated exposure control, adjustment of mA and/or kV according to patient size. COMPARISON: [facility], CT, C-SPINE WITHOUT CONTRAST, 08/25/2011, 9:50. FINDINGS: Image quality: Excellent. Bones: No fractures or dislocations. Grade 1 anterolisthesis of C4 on C5. Moderate degenerative disease at C5-C 6 and C6-C7. Bilateral facet arthropathy, most pronounced at C3-C4 and C4-C5. Severe atlantoaxial joint degeneration. Visualized superior ribs are intact. Soft tissues: Prevertebral soft tissues are normal in thickness. No paravertebral hematomas. No apical pneumothoraces. IMPRESSION: 1. No cervical spine fractures. 2. Degenerative changes as described. Dictated by: Gamaliel Garcia M.D. on 01/27/2023 at 17:59 Approved by: Gamaliel Garcia M.D. on 01/27/2023 at 18:01 MDM Narrative Medical decision making narrative: 77-year-old female anticoagulant warfarin had head CT which is negative for acute bleed C-spine shows no acute change. Patient does have noted nasal bone fracture as well as right maxillary. She has minimal tenderness. Labs were obtained as patient does have warfarin CBC, INR and CMP which show no significant change. INR is 3.8 patient told to hold her next dose of warfarin. CMP shows no acute change. Tetanus is updated. Patient had small puncture wound not requiring suture which was cleansed and had bandage applied. Patient has fracture of the base of the 5th metacarpal placed in ulnar gutter. Patient also had nasal bone fracture and maxillary bone. Head CT was negative, C-spine shows no acute change. Shoulder x-ray does not show any acute change patient has good range of motion. Patient ambulating in department without issue. Reviewed all findings need for follow-up. Patient is neurovascularly intact after splint placed by nursing. Did discuss with patient her INR is 3.8 today she is repeat check on this Wednesday in 2 days. Has patient hold her warfarin this evening as well as tomorrow evening. She is agreeable to this and states she can not bump up her warfarin check until has to keep it on Wednesday as her physicians not in the office. Discharge Plan Departure Patient Disposition: Home Clinical Impression: Traumatic hematoma of forehead, Closed fracture nasal bone, Closed right maxillary fracture, Fracture of metacarpal Instructions: DI for a Hand Fracture Activity Restrictions/Additional Instructions: Please follow-up with orthopedic surgery. You do have a fracture of the 5th metacarpal in your hand. Call to set up follow-up with orthopedic surgery. You also fracture of your nasal bone and right maxillary sinus, referrals included to follow up with ENT. You may take Tylenol up to a 1000 mg every 6 hours as needed for pain. Splint Care: Keep splint clean and dry. Elevated affected body part to decrease swelling. OK to use ice pack on the affected body part. Use for 15-20 minutes each time, for 5-6x per day. If you develop worsening pain, numbness, tingling, discoloration of the affected body part, loosen the splint by loosening the GURJIT wrap, and either see your doctor for an urgent re-assessment, or return to the Emergency Department. Return to the Emergency Department for any new or worsening symptoms. Please return for severe headaches, altered mental status, new neck or back pain, shortness of breath, persistent vomiting, new numbness, tingling or weakness or other new or concerning changes. Prescriptions: No Action aspirin 81 MG tablet,delayed release (DR/EC) 81 mg PO QDAY Qty: 0 warfarin 7.5 mg tablet See Rx Instructions .ROUTE .COMPLEX Qty: 120 3RF Dose Instruction: TAKE 1 TABLET BY MOUTH 5 DAYS PER WEEK, AND 1 AND 1/2 TABLETS (11.25MG) ON WEDNESDAY AND FRIDAYS Rx Instructions: 11.25mg Wednesday and 7.5 mg PO all other days, or as directed. omeprazole 40 mg capsule,delayed release(DR/EC) 40 mg PO DAILY Qty: 90 3RF metoprolol succinate 50 mg tablet extended release 24 hr 50 mg PO QPM Qty: 30 1RF fluoxetine 10 mg capsule 10 mg PO DAILY Qty: 90 1RF Referrals: Margaret Pierre MD [Physician] - Ant Bradley MD [Physician] - Krissy Ramirez DO [Primary Care Provider] - Stand Alone Forms: Patient Portal/API
[2023-01-27 19:11] LABS: INR 3.8 (0.9-1.3); Prothrombin Time 43.9 SECONDS (10.1-12.7)
[2023-01-27 19:13] LABS: Add Manual Diff / Slide Review NO; Basophils Absolute Auto 0 /uL (0-100); Basophils Percent Auto 0.7 % (0-2); Eosinophils Absolute Auto 300 /uL (0-450); Eosinophils Percent Auto 4.7 % (2-4); Hematocrit 38.9 % (36-46); Hemoglobin 12.9 g/dL (12.0-16.0); Lymphocytes Absolute Auto 1800 /uL (1100-4500); Lymphocytes Percent Auto 28.3 % (25-40); Mean Corpuscular HGB Conc 33.3 % (30-36); Mean Corpuscular Hemoglobin 29.9 PG (26-34); Mean Corpuscular Volume 89.9 fL (80-100); Monocytes Absolute Auto 800 /uL (0-900); Monocytes Percent Auto 13.3 % (3-14); Neutrophils Absolute Auto 3400 /uL (1500-7000); Platelet Count 230 X10^3/uL (150-400); Red Blood Cell Count 4.32 X10^6/uL (4.0-5.2); Red Cell Distribution Width 14.8 % (11.6-14.8); White Blood Cell Count 6.4 X10^3/uL (4.5-11.0)
--- NOTE | 2023-01-27 19:17 | PC.NURSE ---
C-spine cleared. C-collar removed by . Abrasion on forehead cleaned
[2023-01-27 19:22] LABS: Alanine Aminotransferase 22 IU/L (<35); Albumin 4.3 g/dL (3.5-5.0); Albumin Globulin Ratio 1.3 (1.0-2.8); Alkaline Phosphatase 93 U/L (38-126); Aspartate Aminotransferase 34 IU/L (14-36); BUN Creatinine Ratio 18.5 (6-22); Bilirubin Total 0.6 mg/dL (0.2-1.3); Blood Urea Nitrogen 12 mg/dL (7-17); Calcium 9.6 mg/dL (8.4-10.2); Carbon Dioxide 28 mmol/L (22-32); Chloride 103 mmol/L (98-107); Estimated Glomerular Filt Rate > 60 mL/min (>60); Globulin 3.4 g/dL (1.7-4.1); Glucose 87 mg/dL (80-110); HEMOLYSIS < 15 (0-50); Sodium 136 mmol/L (137-145); Total Protein 7.7 g/dL (6.3-8.2)
--- NOTE | 2023-01-27 20:09 | PC.NURSE ---
Bandaid applied to forehead and ulnar-gutter splint applied to L hand per Dr. Kaplan's request. Pt educated on proper circulation and how to correct splint if needed
[2023-01-27 20:56] VITALS: BP 170/84; PULSE 88; RESP 16; O2SAT 96
== END 2023-01-27 20:57 | disposition home or self-care (01) ==
PROVIDERS: Emergency Provider Emergency Medicine; PCP Family Medicine
DX: S02.2XXA Fracture of nasal bones, initial encounter for closed fracture (principal); S02.40CA Maxillary fracture, right side, initial encounter for closed fracture; S62.307A Unspecified fracture of fifth metacarpal bone, left hand, initial encounter for closed fracture; S00.83XA Contusion of other part of head, initial encounter; W01.0XXA Fall on same level from slipping, tripping and stumbling without subsequent striking against object, initial encounter; Z79.899 Other long term (current) drug therapy; Z79.01 Long term (current) use of anticoagulants
CPT/HCPCS: 70450; 72125; 73030; 73110; 80053; 85025; 85610; 99283; 99284

== ENCOUNTER 2023-02-08 10:27 | Emergency (ER) | payer MEDICARE, SELFPAY ==
[2022-06-04 15:10] VITALS: BMI 31.6
[2023-02-08] VITALS (26 sets, daily range): BP systolic 126–213; BP diastolic 56–115; PULSE 74–91; RESP 7–25; TEMP 36.6; O2SAT 96–99; BMI 28.0
--- NOTE | 2023-02-08 10:36 | DI.RAD.S_ITS ---
PROCEDURE: XR CHEST 1V INDICATIONS: chest pain TECHNIQUE: One view of the chest was acquired. COMPARISON: [facility], CR, XR CHEST 1V, 06/23/2021, 9:52. FINDINGS: Surgical changes and devices: Intact midline sternotomy wires. Valve prosthesis. Interval right total shoulder arthroplasty. Lungs and pleura: Lungs are clear. No pleural effusions or pneumothorax. Mediastinum: Mediastinal contours appear normal. Heart size is normal. Aortic arch is calcified, indicating atherosclerosis. Bones and chest wall: No suspicious bony lesions. Overlying soft tissues appear unremarkable. IMPRESSION: 1. No acute cardiopulmonary process. 2. Interval right total shoulder arthroplasty. Dictated by: Rajiv Gipson M.D. on 02/08/2023 at 11:47 Approved by: Rajiv Gipson M.D. on 02/08/2023 at 11:48
--- NOTE | 2023-02-08 10:37 | ED_ITS ---
HPI - Chest Pain General Chief Complaint: Chest Pain Stated Complaint: nausea, rt side of chest pain Time Seen by Provider: 02/08/23 10:28 History of Present Illness HPI narrative: 77-year-old female with history of mitral valve replacement on warfarin, hypertension presents by private vehicle from home for approximately 45 minutes of right-sided chest pain that began approximately 45 minutes prior to arrival. Patient was hanging [place] lights when pain began, however she states that now that she is lying down in the ED bed her pain is no longer present, but she does endorse nausea. Denies vomiting. Reports prior hx of abnormal EKG, but denies history of coronary disease. Related Data Home Medications Medication Instructions Recorded Confirmed aspirin 81 mg tablet,delayed 81 mg PO QDAY ##0 08/12/16 11/02/22 release Previous Rx's Medication Instructions Recorded warfarin 7.5 mg tablet See Rx Instructions .Route 06/12/22 .COMPLEX #120 tabs fluoxetine 10 mg capsule 10 mg PO DAILY #90 caps 11/02/22 omeprazole 40 mg capsule,delayed 40 mg PO DAILY #90 caps 11/19/22 release metoprolol succinate 50 mg 50 mg PO QPM #30 tabs 02/08/23 tablet,extended release 24 hr Allergies Allergy/AdvReac Type Severity Reaction Status Date / Time mometasone furoate Allergy Severe ANAPHYLAXIS Verified 02/08/23 10:39 [MOMETASONE FUROATE] adhesive tape [ADHESIVE TAPE] Allergy Intermediate Blisters Verified 02/08/23 10:39 adhesive [ADHESIVE] Allergy Mild LOCAL Verified 02/08/23 10:39 HIVES,BLISTERS diclofenac [From VOLTAREN] Allergy Mild HIVES Verified 02/08/23 10:39 latex [LATEX] Allergy Mild HIVES,BLIST Verified 02/08/23 10:39 ERS ezetimibe [EZETIMIBE] AdvReac Severe Muscle Verified 02/08/23 10:39 pain, spasms nirmatrelvir AdvReac Severe loss of Verified 02/08/23 10:39 [From Paxlovid (EUA)] consciousness ritonavir AdvReac Severe loss of Verified 02/08/23 10:39 [From Paxlovid (EUA)] consciousness codeine [CODEINE] AdvReac Mild HALLUCINATI Verified 02/08/23 10:39 ONS gluten [GLUTEN] AdvReac Mild IMMEDIATE Verified 02/08/23 10:39 DIARRHEA simvastatin [SIMVASTATIN] AdvReac Mild MYALGIAS Verified 02/08/23 10:39 soy AdvReac Mild SOY MILK - Verified 02/08/23 10:39 UPSET STOMACH Febobfa-CFY-PzP Reductase AdvReac Mild MYALGIAS Verified 02/08/23 10:39 Inhibitor [[id number] REDUCTASE INHIBITOR] Milk Containing Products AdvReac Unknown CRAMPING,DRINKS Verified 02/08/23 10:39 (Dairy) ALMOND [MILK CONTAINING PRODUCTS] MILK Review of Systems Review of Systems Narrative: REPORTS: CHEST PAIN, NAUSEA All other review of systems negative Patient History Medical History Anticoagulation monitoring, INR range 2.5-3.5 COVID-19 virus infection (09/2021) MIHAI (obstructive sleep apnea) Right rotator cuff tendonitis Aortic regurgitation Depression, major, recurrent Tear of right gluteus medius tendon Osteoporosis Hip pain Allergy to casein Pulmonary hypertension Vision abnormalities Seasonal allergies Osteoarthritis (~1999) Depression (~1966) Anxiety (~1979) Osteopenia (~1997) Fracture (~2007) Foot pain (~2007) Carpal tunnel syndrome (~1987) Rheumatic fever (~1953) Chickenpox Measles (~1951) Mumps History of recurrent ear infection Urinary incontinence (~2002) IBS (irritable bowel syndrome) (~2014) GERD (gastroesophageal reflux disease) (~2008) Heavy menstrual period (~1994) Abnormal Pap smear of cervix Fibromyalgia Migraines (~1959) Sinus tachycardia Hypertension Hyperlipidemia Class 1 obesity (08/20/14) [facility] current use of anticoagulant therapy Surgical History Status post total shoulder arthroplasty Hx of bilateral cataract extraction S/P right unicompartmental knee replacement Hx of plastic surgery S/P left unicompartmental knee replacement Hx of toe surgery Hx of tubal ligation Anesthesia H/O mitral valve replacement (01/16/09) Surgical procedure planned (~1996) Status post colonoscopy (~2006) Status post bunionectomy (~2010) Status post appendectomy (~1980) Family History Brother Age: 63 Hypertension High cholesterol Child Age: 51 Mental health problem Father High cholesterol Heart attack Social History household members: spouse Smoking Status: Never smoker alcohol intake: current substance use type: does not use Smoking Status: Never smoker alcohol intake frequency: a few times a month Substance Use Type: does not use Exam Initial Vital Signs Initial Vital Signs: Vital Signs Pulse Rate 90 02/08/23 10:33 Respiratory Rate 20 02/08/23 10:33 Blood Pressure 213/115 H 02/08/23 10:33 Pulse Oximetry 97 02/08/23 10:33 Const: Awake, alert, no acute distress, nontoxic appearing Eyes: PERRL, EOMI, conjunctiva normal ENT: Atraumatic, dentition normal, mucous membranes moist Cardiac: regular rate, regular rhythm, reproducible right-sided chest tenderness to palpation RESP: unlabored, clear bilaterally, no wheezing GI: Atraumatic, soft, nontender, nondistended, no rebound, no guarding MSK: Left wrist in intact cast, full range of motion, pulses equal Skin: Warm, Dry, intact, healing bruising over face Neuro: AO x3, CN II-XII grossly intact, moves all extremities Psych: affect normal, mood normal, not suicidal, not homicidal Course Orders Ordered: ED Orders 02/08/23 10:36 Chest [XR chest 1V] Stat 02/08/23 10:37 EKG-12 Lead Stat 02/08/23 10:45 CBC Auto Diff [Complete Blood Count AUTO DIFF] Stat CMP [Comprehensive Metabolic Panel] Stat Lipase Stat PT [Prothrombin Time INR] Stat Troponin & CK Cardiac Panel Stat 02/08/23 12:33 Trop I [Troponin I] Stat Discontinued Medications Hydralazine HCl (Hydralazine 20 Mg/Ml Vial) 10 mg IV NOW ONE Stop: 02/08/23 10:37 Last Admin: 02/08/23 10:43 Dose: 10 mg Documented By: RB Ondansetron HCl (Ondansetron 4 Mg/2 Ml Inj) 4 mg IV NOW ONE Stop: 02/08/23 10:37 Last Admin: 02/08/23 10:43 Dose: 4 mg Documented By: RB Vital Signs Vital signs: Vital Signs - 8 hr 02/08/23 10:33 02/08/23 10:33 02/08/23 10:34 Temperature 97.9 F Pulse Rate 90 84 Respiratory Rate 20 18 Blood Pressure 213/115 H 196/97 H Pulse Oximetry 97 98 Oxygen Delivery Method Room Air 02/08/23 10:34 02/08/23 10:34 02/08/23 10:43 Temperature Pulse Rate 91 H 81 Respiratory Rate 18 Blood Pressure 196/97 H 196/97 H Pulse Oximetry 98 Oxygen Delivery Method 02/08/23 10:58 02/08/23 10:58 02/08/23 10:58 Temperature Pulse Rate 83 83 Respiratory Rate Blood Pressure 190/79 H 190/79 H Pulse Oximetry 99 Oxygen Delivery Method 02/08/23 11:00 02/08/23 11:30 02/08/23 11:49 Temperature Pulse Rate 84 80 Respiratory Rate 18 25 H Blood Pressure Pulse Oximetry 98 98 99 Oxygen Delivery Method 02/08/23 11:51 02/08/23 11:55 02/08/23 11:55 Temperature Pulse Rate 86 Respiratory Rate 22 Blood Pressure 185/86 H 206/88 H Pulse Oximetry 99 Oxygen Delivery Method 02/08/23 12:00 02/08/23 12:01 02/08/23 12:01 Temperature Pulse Rate 79 79 Respiratory Rate 12 12 Blood Pressure 155/70 H Pulse Oximetry 99 99 Oxygen Delivery Method 02/08/23 12:06 02/08/23 12:06 02/08/23 12:11 Temperature Pulse Rate 77 76 Respiratory Rate 14 14 Blood Pressure 144/68 H Pulse Oximetry 99 98 Oxygen Delivery Method 02/08/23 12:11 02/08/23 12:16 02/08/23 12:16 Temperature Pulse Rate 77 Respiratory Rate 22 Blood Pressure 167/67 H 145/65 H Pulse Oximetry 99 Oxygen Delivery Method 02/08/23 12:20 02/08/23 12:20 02/08/23 12:25 Temperature Pulse Rate 77 78 Respiratory Rate 14 22 Blood Pressure 131/62 Pulse Oximetry 99 99 Oxygen Delivery Method 02/08/23 12:25 02/08/23 12:30 02/08/23 12:30 Temperature Pulse Rate 78 Respiratory Rate 23 Blood Pressure 133/63 140/70 Pulse Oximetry 99 Oxygen Delivery Method 02/08/23 12:35 02/08/23 12:35 02/08/23 12:41 Temperature Pulse Rate 77 74 Respiratory Rate 20 12 Blood Pressure 146/72 H Pulse Oximetry 99 99 Oxygen Delivery Method 02/08/23 12:41 02/08/23 12:45 02/08/23 12:45 Temperature Pulse Rate 76 Respiratory Rate 12 Blood Pressure 126/59 L 138/61 Pulse Oximetry 99 Oxygen Delivery Method Room Air 02/08/23 12:50 02/08/23 12:50 02/08/23 12:55 Temperature Pulse Rate 75 Respiratory Rate 7 L Blood Pressure 138/62 139/65 Pulse Oximetry 98 Oxygen Delivery Method 02/08/23 12:55 02/08/23 13:00 02/08/23 13:00 Temperature Pulse Rate 74 74 Respiratory Rate 7 L 8 L Blood Pressure 147/59 H Pulse Oximetry 97 99 Oxygen Delivery Method 02/08/23 13:05 02/08/23 13:05 02/08/23 13:10 Temperature Pulse Rate 75 77 Respiratory Rate 8 L 12 Blood Pressure 133/63 Pulse Oximetry 97 96 Oxygen Delivery Method 02/08/23 13:10 02/08/23 13:16 02/08/23 13:16 Temperature Pulse Rate 78 Respiratory Rate 17 Blood Pressure 126/56 L 148/84 H Pulse Oximetry 98 Oxygen Delivery Method Room Air MDM - Chest Pain Differential Diagnosis Differential diagnosis: Likely fracture of rib, atypical chest pain, costochondritis and chest pain Lab Data 02/08/23 10:45 02/08/23 10:45 Labs: Lab Results 02/08/23 02/08/23 Range/Units 10:45 12:33 WBC 5.0 (4.5-11.0) X10^3/uL RBC 4.09 (4.0-5.2) X10^6/uL Hgb 12.4 (12.0-16.0) g/dL Hct 36.6 (36-46) % MCV 89.6 (80-100) fL MCH 30.4 (26-34) PG MCHC 33.9 (30-36) % RDW 14.6 (11.6-14.8) % Plt Count 231 (150-400) X10^3/uL Neut % (Auto) 59.9 (50-75) % Lymph % (Auto) 22.1 L (25-40) % Story % (Auto) 10.6 (3-14) % Eos % (Auto) 5.7 H (2-4) % Baso % (Auto) 1.7 (0-2) % Neut # (Auto) 3000 (9560-6419) /uL Lymph # (Auto) 1100 (6054-6441) /uL Story # (Auto) 500 (0-900) /uL Eos # (Auto) 300 (0-450) /uL Baso # (Auto) 100 (0-100) /uL PT 37.9 H (9.4-12.5) SECONDS INR 3.3 H (0.9-1.3) Sodium 136 L (137-145) mmol/L Potassium 4.4 (3.4-5.1) mmol/L Chloride 104 (98-107) mmol/L Carbon Dioxide 29 (22-32) mmol/L BUN 13 (7-17) mg/dL Creatinine 0.62 (0.52-1.04) mg/dL Estimated GFR > 60 (>60) mL/min BUN/Creatinine Ratio 21.0 (6-22) Glucose 102 (80-110) mg/dL Calcium 9.3 (8.4-10.2) mg/dL Total Bilirubin 0.8 (0.2-1.3) mg/dL AST 28 (14-36) IU/L ALT 20 (<35) IU/L Alkaline Phosphatase 93 (38-126) U/L Total Creatine Kinase 111 (30-135) U/L Troponin I 0.031 0.032 (0.01-0.034) ng/mL Total Protein 7.4 (6.3-8.2) g/dL Albumin 4.1 (3.5-5.0) g/dL Globulin 3.3 (1.7-4.1) g/dL Albumin/Globulin Ratio 1.2 (1.0-2.8) Lipase 202 (23-300) U/L ECG Data Interpretation: Normal sinus rhythm, rate 83 beats per minute, normal axis, no ST T wave changes, no STEMI MDM Narrative Medical decision making narrative: Overall well-appearing patient with right-sided chest pain and brief episode of nausea. Pain-free while lying in emergency department stretcher. EKG is normal sinus rhythm, patient denies ever having history of coronary disease and has seen Cardiology multiple times for her mitral valve as well as her aortic valve. Labs and x-ray imaging to be ordered. Patient has remained pain-free while in the emergency department, nausea controlled with single dose of medication. Troponins stable x2. Patient informed of all lab and imaging findings, at this time no indication for hospitalization. 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 ED return precautions discussed at bedside. Patient expressed understanding of the plan and is in agreement at this time. All questions answered at the time of discharge. Discharge Plan Departure Patient Disposition: Home Clinical Impression: Chest pain Qualifiers: Chest pain type: unspecified Qualified Code(s): R07.9 - Chest pain, unspecified Instructions: DI for Chest Pain Activity Restrictions/Additional Instructions: You were seen today for chest pain. Your EKG was normal sinus rhythm and your troponin levels were within normal limits x2. I do not know the exact cause of your chest pain. I do recommend following up with your heart doctor to see if any further testing is needed. Your INR today was 3.3. Prescriptions: No Action aspirin 81 MG tablet,delayed release (DR/EC) 81 mg PO QDAY Qty: 0 warfarin 7.5 mg tablet See Rx Instructions .ROUTE .COMPLEX Qty: 120 3RF Dose Instruction: TAKE 1 TABLET BY MOUTH 5 DAYS PER WEEK, AND 1 AND 1/2 TABLETS (11.25MG) ON WEDNESDAY AND FRIDAYS Rx Instructions: 11.25mg Wednesday and 7.5 mg PO all other days, or as directed. omeprazole 40 mg capsule,delayed release(DR/EC) 40 mg PO DAILY Qty: 90 3RF metoprolol succinate 50 mg tablet extended release 24 hr 50 mg PO QPM Qty: 30 1RF fluoxetine 10 mg capsule 10 mg PO DAILY Qty: 90 1RF Referrals: Krissy Ramirez DO [Primary Care Provider] - Stand Alone Forms: Patient Portal/API
[2023-02-08] MEDS: HYDRALAZINE 20 MG/ML VIAL 10 MG IV (10:43)
[2023-02-08] MEDS: ONDANSETRON 4 MG/2 ML INJ IV (10:43)
[2023-02-08 10:54] LABS: Add Manual Diff / Slide Review NO; Basophils Absolute Auto 100 /uL (0-100); Basophils Percent Auto 1.7 % (0-2); Eosinophils Absolute Auto 300 /uL (0-450); Eosinophils Percent Auto 5.7 % (2-4); Hematocrit 36.6 % (36-46); Hemoglobin 12.4 g/dL (12.0-16.0); Lymphocytes Absolute Auto 1100 /uL (1100-4500); Lymphocytes Percent Auto 22.1 % (25-40); Mean Corpuscular HGB Conc 33.9 % (30-36); Mean Corpuscular Hemoglobin 30.4 PG (26-34); Mean Corpuscular Volume 89.6 fL (80-100); Monocytes Absolute Auto 500 /uL (0-900); Monocytes Percent Auto 10.6 % (3-14); Neutrophils Absolute Auto 3000 /uL (1500-7000); Neutrophils Percent Auto 59.9 % (50-75); Platelet Count 231 X10^3/uL (150-400); Red Blood Cell Count 4.09 X10^6/uL (4.0-5.2); Red Cell Distribution Width 14.6 % (11.6-14.8)
[2023-02-08 10:58] LABS: INR 3.3 (0.9-1.3); Prothrombin Time 37.9 SECONDS (9.4-12.5)
[2023-02-08 11:04] LABS: Alanine Aminotransferase 20 IU/L (<35); Albumin 4.1 g/dL (3.5-5.0); Albumin Globulin Ratio 1.2 (1.0-2.8); Alkaline Phosphatase 93 U/L (38-126); Aspartate Aminotransferase 28 IU/L (14-36); Bilirubin Total 0.8 mg/dL (0.2-1.3); Blood Urea Nitrogen 13 mg/dL (7-17); Calcium 9.3 mg/dL (8.4-10.2); Carbon Dioxide 29 mmol/L (22-32); Chloride 104 mmol/L (98-107); Creatine Kinase 111 U/L (30-135); Estimated Glomerular Filt Rate > 60 mL/min (>60); Globulin 3.3 g/dL (1.7-4.1); Glucose 102 mg/dL (80-110); HEMOLYSIS < 15 (0-50); Lipase 202 U/L (23-300); Potassium 4.4 mmol/L (3.4-5.1); Sodium 136 mmol/L (137-145); Total Protein 7.4 g/dL (6.3-8.2)
[2023-02-08 11:15] LABS: Troponin I 0.031 ng/mL (0.01-0.034)
[2023-02-08 13:05] LABS: Troponin I 0.032 ng/mL (0.01-0.034)
== END 2023-02-08 13:29 | disposition home or self-care (01) ==
PROVIDERS: Emergency Provider Emergency Medicine; PCP Family Medicine
DX: R07.9 Chest pain, unspecified (principal); I10 Essential (primary) hypertension; Z79.01 Long term (current) use of anticoagulants; Z95.2 Presence of prosthetic heart valve; Z79.899 Other long term (current) drug therapy
CPT/HCPCS: 36415; 71045; 80053; 82550; 83690; 84484; 85025; 85610; 93005; 96374; 96375; 99284; J0360; J2405

== ENCOUNTER → 2023-04-25 09:24 | Outpatient (CLI) | payer MEDICARE, SELFPAY ==
[2022-06-04 15:10] VITALS: BMI 31.6
== END ==
PROVIDERS: PCP Family Medicine; Visit Provider Physician Assistant Surgical
DX: R30.9 Painful micturition, unspecified (principal)
CPT/HCPCS: 87086

== ENCOUNTER → 2023-07-22 07:01 | Outpatient (CLI) | payer MEDICARE, SELFPAY ==
[2022-06-04 15:10] VITALS: BMI 31.6
[2023-07-22 07:57] LABS: Add Manual Diff / Slide Review NO; Basophils Absolute Auto 0 /uL (0-100); Basophils Percent Auto 0.9 % (0-2); Eosinophils Absolute Auto 300 /uL (0-450); Eosinophils Percent Auto 6.5 % (2-4); Hematocrit 37.6 % (36-46); Hemoglobin 12.6 g/dL (12.0-16.0); Lymphocytes Absolute Auto 800 /uL (1100-4500); Lymphocytes Percent Auto 21.5 % (25-40); Mean Corpuscular HGB Conc 33.6 % (30-36); Mean Corpuscular Volume 92.1 fL (80-100); Monocytes Absolute Auto 500 /uL (0-900); Monocytes Percent Auto 12.2 % (3-14); Neutrophils Absolute Auto 2300 /uL (1500-7000); Neutrophils Percent Auto 58.9 % (50-75); Platelet Count 190 X10^3/uL (150-400); Red Blood Cell Count 4.09 X10^6/uL (4.0-5.2); Red Cell Distribution Width 14.6 % (11.6-14.8); White Blood Cell Count 3.9 X10^3/uL (4.5-11.0)
[2023-07-22 08:11] LABS: BUN Creatinine Ratio 15.5 (6-22); Blood Urea Nitrogen 9 mg/dL (7-17); Calcium 9.1 mg/dL (8.4-10.2); Carbon Dioxide 28 mmol/L (22-32); Chloride 106 mmol/L (98-107); Cholesterol 217 mg/dL (140-199); Estimated Glomerular Filt Rate > 60 mL/min (>60); Glucose 87 mg/dL (80-110); HDL Cholesterol 66 mg/dL (40-60); HEMOLYSIS < 15 (0-50); LDL Cholesterol Calculated 131 mg/dL (<100); Potassium 4.4 mmol/L (3.4-5.1); Sodium 137 mmol/L (137-145); Triglycerides 98 mg/dL (35-150)
== END ==
PROVIDERS: PCP Family Medicine; Referring Provider Internal Medicine Cardiovascular Disease; Visit Provider Internal Medicine Cardiovascular Disease
DX: E78.5 Hyperlipidemia, unspecified (principal); I27.20 Pulmonary hypertension, unspecified; Z79.01 Long term (current) use of anticoagulants
CPT/HCPCS: 36415; 80048; 80061; 85025

== ENCOUNTER → 2023-07-23 09:45 | Outpatient (CLI) | payer MEDICARE, SELFPAY ==
[2022-06-04 15:10] VITALS: BMI 31.6
--- NOTE | 2023-07-23 09:46 | DI.RAD.S_ITS ---
PROCEDURE: XR DEXA AXIAL SKELETON INDICATIONS: Screening for Osteoporosis COMPARISON: [facility], , DEXA AXIAL SKELETON, 08/12/2016, 14:56. FINDINGS: Lumbar Spine: Bone mineral density 0.853 g/cm2, T score -1.8, compared to -1.3. Left Hip: Bone mineral density 0.668 g/cm2, T score -2.2, compared to -1.8. Left Femoral Neck: Bone mineral density 0.552 g/cm2, T score -2.7, compared to -2.1. Fracture Risk Calculation (when applicable): 10-year fracture risk of a major osteoporotic fracture 35% and of a hip fracture 25%. (T score greater or equal to -1.0 to: NORMAL) (T score from -1.1 to -2.4: OSTEOPENIA) (T score less than or equal to -2.5: OSTEOPOROSIS) IMPRESSION: Progressive osteopenia in the lumbar spine and hip with now osteoporosis in the femoral neck. Follow-up guidelines as follows: Osteoporosis: Consider a repeat DEXA and Vertebral Fracture Assessment (VFA) exam in 2 years or sooner if medically necessary, to reassess this patient's status. Osteopenia: Consider a repeat DEXA in 2-3 years to reassess this patient's status, or if there is a new clinical indication. Normal: Consider a repeat DEXA in 5 years or sooner, or if there is a new clinical indication. Dictated by: Padma Paredes M.D. on 07/26/2023 at 11:54 Approved by: Padma Paredes M.D. on 07/26/2023 at 11:56
== END ==
LOC: RAD 09:46
PROVIDERS: PCP Family Medicine; Referring Provider Family Medicine; Visit Provider Family Medicine
DX: M85.89 Other specified disorders of bone density and structure, multiple sites (principal)
CPT/HCPCS: 77080; 77081

== ENCOUNTER → 2023-07-30 10:13 | Outpatient (CLI) | payer MEDICARE, SELFPAY ==
[2022-06-04 15:10] VITALS: BMI 31.6
--- NOTE | 2023-07-30 10:14 | DI.RAD.S_ITS ---
PROCEDURE: XR HIP W PEL IF DONE RT 2V INDICATIONS: Fall, right hip pain TECHNIQUE: AP pelvis with lateral view(s) of the right hip(s). COMPARISON: [facility], CR, XR HIP W PEL IF DONE LT 2V, 08/28/2021, 15:05. FINDINGS: Bones: No fractures or dislocations. Pelvic ring appears intact. No suspicious bony lesions. Partially imaged surgical fixation hardware of intramedullary jessica and proximal interlocking screw fixation involving the proximal right femur. No evidence for hardware complication. Stable appearance of mild symmetric femoroacetabular degenerative change. Lower lumbar spondylosis. Soft tissues: The visualized bowel gas pattern is normal. No suspicious soft tissue calcifications. IMPRESSION: Pelvis/right hip without acute fracture or dislocation. If there is high clinical concern for occult fracture, further evaluation with CT or MRI can be considered. Dictated by: Zeke Ware M.D. on 07/30/2023 at 11:00 Approved by: Zeke Ware M.D. on 07/30/2023 at 11:02
== END ==
PROVIDERS: PCP Family Medicine; Referring Provider Nurse Practitioner Family; Visit Provider Nurse Practitioner Family
DX: M47.816 Spondylosis without myelopathy or radiculopathy, lumbar region (principal); M25.551 Pain in right hip
CPT/HCPCS: 73502

== ENCOUNTER 2023-08-08 08:01 | Emergency (ER) | payer MEDICARE, SELFPAY ==
[2022-06-04 15:10] VITALS: BMI 31.6
[2023-08-08 08:21] VITALS: BP 156/83; PULSE 83; RESP 17; TEMP 36.8; O2SAT 97
[2023-08-08 09:06] LABS: Bacteria Urine Occasional (0-1); Culture Indicated Urine Specimen Cultured; RBC Urine 1-5/HPF (0-5/HPF); Squamous Epithelial Cell Urine 0-1 /HPF (0-5/HPF); Urine Volume 10mL (spun); WBC Urine 5-10/HPF (0-5/HPF)
--- NOTE | 2023-08-08 22:14 | ED_ITS ---
HPI - Female Genitourinary General Chief complaint: Urogenital-Female Stated complaint: PER PT UTI Source: patient Mode of arrival: Family Vehicle History of Present Illness HPI Narrative: Patient left without see any provider Related Data Home Medications Medication Instructions Recorded Confirmed aspirin 81 mg tablet,delayed 81 mg PO QDAY ##0 08/12/16 07/30/23 release ezetimibe 10 mg tablet 10 mg PO DAILY 06/15/23 07/30/23 amoxicillin 500 mg-potassium 1 tab PO BID 07/30/23 07/30/23 clavulanate 125 mg tablet Previous Rx's Medication Instructions Recorded omeprazole 40 mg capsule,delayed 40 mg PO DAILY #90 caps 11/19/22 release warfarin 7.5 mg tablet See Rx Instructions .Route 07/20/23 .COMPLEX #120 tabs metoprolol succinate 50 mg 50 mg PO QPM #30 tabs 07/26/23 tablet,extended release 24 hr Allergies Allergy/AdvReac Type Severity Reaction Status Date / Time mometasone furoate Allergy Severe ANAPHYLAXIS Verified 08/08/23 08:25 [MOMETASONE FUROATE] adhesive [ADHESIVE] Allergy Mild LOCAL Verified 08/08/23 08:25 HIVES,BLISTERS diclofenac [From VOLTAREN] Allergy Mild HIVES Verified 08/08/23 08:25 latex [LATEX] Allergy Mild HIVES,BLIST Verified 08/08/23 08:25 ERS ezetimibe [EZETIMIBE] AdvReac Severe Muscle Verified 08/08/23 08:25 pain, spasms nirmatrelvir AdvReac Severe loss of Verified 08/08/23 08:25 [From Paxlovid (EUA)] consciousness ritonavir AdvReac Severe loss of Verified 08/08/23 08:25 [From Paxlovid (EUA)] consciousness codeine [CODEINE] AdvReac Mild HALLUCINATI Verified 08/08/23 08:25 ONS gluten [GLUTEN] AdvReac Mild IMMEDIATE Verified 08/08/23 08:25 DIARRHEA simvastatin [SIMVASTATIN] AdvReac Mild MYALGIAS Verified 08/08/23 08:25 Trrhrxf-MBM-RgS Reductase AdvReac Mild MYALGIAS Verified 07/30/23 09:18 Inhibitor [TZMIGTF-BRH-OWJ REDUCTASE INHIBITOR] Milk Containing Products AdvReac Unknown CRAMPING,DRINKS Verified 07/30/23 09:18 (Dairy) ALMOND [MILK CONTAINING PRODUCTS] MILK Patient History Medical History (Updated 08/08/23 @ 11:56 by Rmea Whitfield RN) Nasal bone fracture (~01/27/23) Right rotator cuff tendonitis Hematuria Left knee injury (~10/23/22) Anticoagulation monitoring, INR range 2.5-3.5 COVID-19 virus infection (09/2021) MIHAI (obstructive sleep apnea) Aortic regurgitation Depression, major, recurrent Osteoporosis Allergy to casein Pulmonary hypertension Vision abnormalities Seasonal allergies Osteoarthritis (~1999) Depression (~1966) Anxiety (~1979) Osteopenia (~1997) Fracture (~2007) Foot pain (~2007) Carpal tunnel syndrome (~1987) Rheumatic fever (~1953) Chickenpox Measles (~1951) Mumps History of recurrent ear infection Urinary incontinence (~2002) IBS (irritable bowel syndrome) (~2014) GERD (gastroesophageal reflux disease) (~2008) Heavy menstrual period (~1994) Abnormal Pap smear of cervix Fibromyalgia Migraines (~1959) Sinus tachycardia Hypertension Hyperlipidemia Class 1 obesity (08/20/14) predatory animal exterminator current use of anticoagulant therapy Surgical History Status post total shoulder arthroplasty Hx of bilateral cataract extraction S/P right unicompartmental knee replacement Hx of plastic surgery S/P left unicompartmental knee replacement Hx of toe surgery Hx of tubal ligation Anesthesia H/O mitral valve replacement (01/16/09) Surgical procedure planned (~1996) Status post colonoscopy (~2006) Status post bunionectomy (~2010) Status post appendectomy (~1980) Family History Brother Age: 64 Hypertension High cholesterol Child Age: 52 Mental health problem Father High cholesterol Heart attack alcohol intake frequency: a few times a month Substance Use Type: does not use Exam Initial Vital Signs Initial Vital Signs: Vital Signs Temperature 98.2 F 08/08/23 08:21 Pulse Rate 83 08/08/23 08:21 Respiratory Rate 17 08/08/23 08:21 Blood Pressure 156/83 H 08/08/23 08:21 Pulse Oximetry 97 08/08/23 08:21 Oxygen Delivery Method Room Air 08/08/23 08:21 Course Orders Ordered: Discontinued Medications Ondansetron HCl (Ondansetron 4 Mg/2 Ml Inj) 4 mg IV NOW PRN PRN Reason: Nausea And Vomiting MDM - Female Genitourinary Lab Data Labs: Lab Results 08/08/23 Range/Units 08:30 Urine RBC 1-5/hpf (0-5/HPF) Urine WBC 5-10/hpf H (0-5/HPF) Ur Squamous Epith Cells 0-1 /hpf (0-5/HPF) Urine Bacteria Occasional (0-1) (None) Ur Culture Indicated? Specimen cultured Vol Urine Centrifuged 10ml (spun) Urine Dip Bedside Urine Glucose Negative Bedside Urine Bilirubin - Negative Bedside Urine Ketone - Negative Urine Specific [place] 1.005 Bedside Urine Occult Blood +++ Bedside Urine pH 6.0 Bedside Urine Protein - Negative Bedside Urine Urobilinogen - Negative Bedside Urine Nitrite - Negative Bedside Urine Leukocytes ++ 125 Esterase Discharge Plan Departure Patient Disposition: Left Without Being Seen Clinical Impression: Patient left after triage Prescriptions: No Action amoxicillin-pot clavulanate 500-125 mg tablet 1 tab PO BID aspirin 81 MG tablet,delayed release (DR/EC) 81 mg PO QDAY Qty: 0 omeprazole 40 mg capsule,delayed release(DR/EC) 40 mg PO DAILY Qty: 90 3RF metoprolol succinate 50 mg tablet extended release 24 hr 50 mg PO QPM Qty: 30 2RF warfarin 7.5 mg tablet See Rx Instructions .ROUTE .COMPLEX Qty: 120 3RF Dose Instruction: TAKE 1 TABLET BY MOUTH 5 DAYS PER WEEK, AND 1 AND 1/2 TABLETS (11.25MG) ON WEDNESDAY AND FRIDAYS Rx Instructions: take 7.5mg daily or as directed ezetimibe 10 mg tablet 10 mg PO DAILY
== END 2023-08-08 11:00 | disposition left against medical advice (07) ==
PROVIDERS: Emergency Provider Emergency Medicine; PCP Family Medicine
DX: R39.15 Urgency of urination (principal); Z53.21 Procedure and treatment not carried out due to patient leaving prior to being seen by health care provider
CPT/HCPCS: 81003; 81015; 87077; 87086; 87186; 99281

== ENCOUNTER → 2023-10-05 13:53 | Outpatient (CLI) | payer MEDICARE, SELFPAY ==
[2022-06-04 15:10] VITALS: BMI 31.6
--- NOTE | 2023-10-05 13:54 | DI.ECHO.S_ITS ---
[facility] : : [id number] : [place] : : [id number] : : Phone: [phone] Echocardiogram Report + + :Name: JEFF PUGH Study Date: 10/05/2023 Height: 62 in : :Hospital ReadingLocation: Weight: 155 lb : : Gender: Female BSA: 1.7 m2 : :: 1945 Age: 78 yrs BP: 173/84 mmHg: :Reason For Study: SYNCOPE AND COLLAPSE : :Ordering Physician: KYLE, : :ALEKSANDAR Performed By: Dennys Walter : :Referring: ALEKSANDAR MAZARIEGOS : + + Interpretation Summary 1) Normal left ventricular thickness, size, and systolic function (EF 55-60%). 2) Normal right ventricular size with mildly reduced function. 3) Mechanical mitral valve present that is well seated and opens well (mean gradient 4.5mmHg). 4) There is mild aortic regurgitation. 5) Compared to the Echo done 06/23/2021, no significant change. Procedure: A two-dimensional transthoracic echocardiogram with color flow and Doppler was performed. The study quality was technically adequate. Comparison is made with the echocardiogram of 06/23/2021. The patient was in sinus rhythm with heart rates between 85-94 bpm during the exam. Left Ventricle: The left ventricle is normal in size and wall thickness. The ejection fraction is estimated to be 55-60%. Septal motion is consistent with post-operative state. Right Ventricle: The right ventricle is normal size. Right ventricular systolic function is mildly reduced. Atria: The left atrium is moderately dilated. The right atrium is mildly dilated. The interatrial septum grossly appears intact with no obvious evidence for an atrial septal defect. Mitral Valve: MECHANICAL MVR. The mitral valve mean gradient is 4.5 mmHg. There is trace mitral regurgitation. Aortic Valve: The aortic valve is trileaflet. There is no aortic valve stenosis. There is mild aortic regurgitation. Tricuspid Valve: The tricuspid valve is normal. There is no tricuspid stenosis. There is trace tricuspid regurgitation. The right ventricular systolic pressure is estimated to be at least 42.0 mmHg based on an estimated right atrial pressure of 3 mm Hg. Pulmonic Valve: The pulmonic valve is not well visualized. There is no pulmonic valvular stenosis. There is no pulmonic valvular regurgitation. Great Vessels: The aortic root is normal size. The dimensions of the ascending aorta are normal. The IVC is of normal diameter and collapses greater than 50% with a sniff. This suggests a low right atrial pressure of 3 mm Hg. Pericardium/ Pleura There is no pericardial effusion. There is no pleural effusion. MMode/2D Measurements & Calculations LVIDd: 4.3 cm LVOT diam: 2.1 cm LVIDs: 3.4 cm Ao root diam: 3.8 cm FS: 21.4 % asc Aorta Diam: 3.4 cm IVSd: 1.0 cm Ao Arch Diam (Prox Trans): 1.8 cm LVPWd: 0.96 cm LV ridley. diameter/BSA (cm/m^2): 2.5 LV sys. diameter/BSA (cm/m^2): 2.0 LA A2 area: 22.6 cm2 RA long axis: 5.1 cm LA A4 area: 28.6 cm2 RA area: 15.9 cm2 LA length (vol): 5.9 cm RA vol: 42.3 ml LA vol: 93.0 ml RA : 24.7 ml/m2 LA vol index: 54.2 ml/m2 IVC diam: 1.2 cm RVD1 (basal): 3.6 cm RVD2 (mid): 3.0 cm TAPSE: 1.7 cm Doppler Measurements & Calculations Ao V2 max: 150.3 cm/sec LVOT Max Michael: 110.7 cm/sec Ao V2 mean: 102.4 cm/sec LV V1 max P.9 mmHg Ao max P.0 mmHg LV V1 VTI: 21.1 cm Ao mean P.8 mmHg HAMZAH(I,D): 2.3 cm2 Ao V2 VTI: 31.2 cm HAMZAH(V,D): 2.5 cm2 sev ratio: 0.68 HAMZAH indexed to BSA (cm^2/m^2): 1.4 MV E max michael: 136.3 cm/sec TR max michael: 312.1 cm/sec MV A max michael: 60.0 cm/sec TR max P.0 mmHg MV E/A: 2.3 PA V2 max: 87.0 cm/sec Med Peak E' Michael: 9.5 cm/sec PA V2 mean: 62.1 cm/sec E/E' med: 14.3 PA mean P.7 mmHg Lat Peak E' Michael: 9.3 cm/sec PA pr(Accel): 36.2 mmHg E/E' lat: 14.6 E/e' average: 14.5 MV dec time: 0.25 sec MVA(VTI): 2.4 cm2 MV V2 mean: 98.9 cm/sec SV(LVOT): 72.5 ml MV mean P.5 mmHg MV V2 VTI: 30.7 cm Reading Physician:03:58 PM
== END ==
PROVIDERS: PCP Family Medicine; Referring Provider Internal Medicine Cardiovascular Disease; Visit Provider Internal Medicine Cardiovascular Disease
DX: R55 Syncope and collapse (principal); I35.1 Nonrheumatic aortic (valve) insufficiency
CPT/HCPCS: 93306

== ENCOUNTER → 2023-12-27 12:56 | Outpatient (CLI) | payer MEDICARE, SELFPAY ==
[2022-06-04 15:10] VITALS: BMI 31.6
--- NOTE | 2023-12-27 12:57 | DI.MG.S_ITS ---
BILATERAL DIGITAL SCREENING MAMMOGRAM 3D/2D WITH CAD: 12/27/2023 CLINICAL: Routine screening. Family history of breast cancer. Comparison is made to exams dated: 02/26/2022 mammogram, 01/11/2021 mammogram, and 01/11/2020 mammogram - [facility]. There are scattered areas of fibroglandular density (category b / 25%-50% glandular tissue). Current study was also evaluated with a Computer Aided Detection (CAD) system. No significant masses, calcifications, or other findings are seen in either breast. There has been no significant interval change. IMPRESSION: NEGATIVE There is no mammographic evidence of malignancy. A 1 year screening mammogram is recommended. Based on the Tyrer Cuzick model (a risk assessment model) the patient's lifetime risk is 4.0% and her 10 year risk is 0.0%. According to the ACR, ACS, and NCCN guidelines, an annual breast MRI exam along with mammogram is recommended if the patient's lifetime risk is 20% or greater. This exam was interpreted at Station ID: [id number]. NOTE: For mammograms, a report in lay terms will be sent to the patient. Approximately 15% of breast malignancies will not be visualized mammographically. In the management of a palpable breast mass, a negative mammogram must not discourage biopsy of a clinically suspicious lesion. Electronically Signed By: Zeke wagner/kirby:12/27/2023 21:16:38 letter sent: Normal Exam ACR BI-RADS Category 1: Negative
== END ==
LOC: MAMMO 12:57
PROVIDERS: PCP Family Medicine; Referring Provider Family Medicine; Visit Provider Family Medicine
DX: Z12.31 Encounter for screening mammogram for malignant neoplasm of breast (principal); Z80.3 Family history of malignant neoplasm of breast
CPT/HCPCS: 77063; 77067

== ENCOUNTER → 2024-05-06 09:45 | Outpatient (CLI) | payer MEDICARE, SELFPAY ==
[2022-06-04 15:10] VITALS: BMI 31.6
--- NOTE | 2024-05-06 09:48 | DI.RAD.S_ITS ---
PROCEDURE: XR HIP W PEL IF DONE RT 2V INDICATIONS: Right hip and low back pain TECHNIQUE: AP pelvis with lateral view(s) of the right hip(s). COMPARISON: [facility], CR, XR LUMBAR SPINE 2-3V, 05/06/2024, 9:55. [facility], CR, XR HIP W PEL IF DONE RT 2V, 07/30/2023, 10:16. FINDINGS: Bones: No fractures or dislocations. Pelvic ring appears intact. No suspicious bony lesions. Right femur hardware is partially seen. No hardware complication is seen. There is moderate superior joint space narrowing seen of both hips, with associated remodeling changes with subchondral sclerosis and osteophyte formation. Soft tissues: The visualized bowel gas pattern is normal. No suspicious soft tissue calcifications. IMPRESSION: Moderate bilateral hip degenerative change is seen. Intact appearing right femur hardware partially seen. Dictated by: Andrae Dietz M.D. on 05/06/2024 at 9:31 Approved by: Andrae Dietz M.D. on 05/06/2024 at 9:32
--- NOTE | 2024-05-06 09:48 | DI.RAD.S_ITS ---
PROCEDURE: XR LUMBAR SPINE 2-3V INDICATIONS: Right hip and low back pain TECHNIQUE: 3 views of the lumbar spine were acquired. COMPARISON: [facility], CR, XR HIP W PEL IF DONE RT 2V, 05/06/2024, 9:55. FINDINGS: Bones: 5 [id number] vertebrae are present. There is minimal dextroconvex scoliotic curvature. Minimal anterolisthesis is seen at L4-L5. No vertebral body compression fractures. No suspicious bony lesions. There is moderate to severe disc space narrowing seen at L5-S1. The disc heights otherwise appear well-preserved. Lower lumbar spine facet arthropathy is seen. Moderate bilateral hip degenerative change can be seen. Soft tissues: Overlying bowel gas pattern is normal. No suspicious soft tissue calcifications. IMPRESSION: No acute plain film abnormality is seen. Focal lower lumbar spine degenerative changes are seen. Dictated by: Andrae Dietz M.D. on 05/06/2024 at 9:29 Approved by: Andrae Dietz M.D. on 05/06/2024 at 9:31
== END ==
LOC: RAD 09:47
PROVIDERS: PCP Family Medicine; Referring Provider Physician Assistant Surgical; Visit Provider Physician Assistant Surgical
DX: M47.816 Spondylosis without myelopathy or radiculopathy, lumbar region (principal); M25.551 Pain in right hip; M54.50 Low back pain, unspecified; M79.604 Pain in right leg
CPT/HCPCS: 72100; 73502

== ENCOUNTER 2024-05-11 15:22 | Emergency (ER) | payer MEDICARE, SELFPAY ==
[2022-06-04 15:10] VITALS: BMI 31.6
[2024-05-11 15:25] VITALS: BP 195/110; PULSE 85; RESP 16; O2SAT 98
--- NOTE | 2024-05-11 15:28 | DI.CT.S_ITS ---
PROCEDURE: CT TRAUMA CHEST ABDOMEN PELVIS INDICATIONS: trauma TECHNIQUE: MDCT axial chest images were obtained with IV contrast in the arterial phase. Maximum intensity projections and multiplanar reformats were obtained. MDCT axial abdomen and pelvis images were obtained with IV contrast in the portal venous phase. Multiplanar reformats were obtained. Optional delayed phase scanning may also be obtained Advanced techniques were used to lower patient radiation exposure. COMPARISON:None. FINDINGS Image Quality: Motion degraded Chest: Lungs and pleura: No pneumothorax or hemothorax. No pulmonary contusions or lacerations. No solid pulmonary nodule requiring follow-up. Scattered atelectasis. Mild septal thickening, possibly edema Vascular: No dissection or pseudoaneurysm. No incidental central pulmonary embolism. No hemopericardium. Cardiomegaly. Mitral annuloplasty Mediastinum: No mediastinum hematoma. No suspicious mass or lymph nodes. No actionable thyroid nodules. Chest wall: Sternotomy wires. Partially seen right shoulder arthroplasty. No displaced rib fractures. Motion artifact limits evaluation of the lower ribs. Thoracic spine: No acute fracture or traumatic subluxation. ABDOMEN and PELVIS: Liver: No laceration or capsular hematoma. Gallbladder: Unremarkable. Biliary system: Non-dilated. Pancreas: Unremarkable. Spleen: No laceration or capsular hematoma. Adrenals: No suspicious nodules. Kidneys: No contrast extravasation or hydronephrosis. No solid masses. subcentimeter lesions are too small to characterize, usually cysts. Vessels and lymph nodes: No pathology lymph nodes by size criteria. No dissection or aneurysm. No retroperitoneal hematoma. Bowel and peritoneum: No suspicious region of mesenteric hemorrhage or hemoperitoneum. No bowel obstruction. Colonic diverticula. Pelvis: Unremarkable bladder. Pelvic ring and femurs: No pelvic ring disruption. No hip fractures. Right femoral fixation hardware. Lumbar spine: No acute fracture or traumatic subluxation. Abdominal wall: No drainable fluid collection or hematoma. IMPRESSION: No significant traumatic injury identified. Many other incidental findings above. Dictated by: Bobby Vergara M.D. on 05/11/2024 at 17:21 Approved by: Bobby Vergara M.D. on 05/11/2024 at 17:29
--- NOTE | 2024-05-11 15:29 | EKG_ITS ---
[address] [address] Test Date: 2024-05-11 Pat Name: Arleen Amador Department: Room: Gender: Female Pressurizer: : 1945 Requested By: Order Number: [id number] Reading MD: Sylvester Esteban Measurements Intervals [place] Rate: 82 P: 64 NC: 154 QRS: 62 QRSD: 96 T: 47 QT: 368 QTc: 429 Interpretive Statements Normal sinus rhythm Electronically Signed On 05-14-2024 18:55:50 PST by Sylvester Esteban
--- NOTE | 2024-05-11 15:30 | ED.TRAUMA ---
HPI - Trauma General Chief Complaint: Fall Stated Complaint: Fall, on thinners Time Seen by Provider: 05/11/24 15:23 History of Present Illness HPI narrative: Modified trauma called overhead Patient brought in by ambulance for modified trauma. Primary exam Airway intact equal breath sounds strong heart sounds no gross deformities. Patient in gown. Patient is on warfarin for atrial fibrillation. Patient complains of neck pain right elbow pain right hip pain right ankle pain. Patient states she was on the 2nd step of stairs and ?blacked out ?for less than 2nd, she awoke to find herself falling to the ground and could not stop herself. She landed mostly on her right side. EMS placed C-collar in place. Had 50 mcg of fentanyl by EMS. Patient states she had syncopal episode back in February of 2024 and was told it was due to atrial fibrillation. Patient in no distress at this time. Denies any pre event chest pain shortness of breath numbness tingling or weakness. Only dizziness. No headache. Related Data Home Medications Medication Instructions Recorded Confirmed aspirin 81 mg tablet,delayed 81 mg PO QDAY ##0 08/12/16 05/06/24 release ezetimibe 10 mg tablet 10 mg PO DAILY 06/15/23 05/06/24 Previous Rx's Medication Instructions Recorded warfarin 7.5 mg tablet See Rx Instructions .Route 07/20/23 .COMPLEX #120 tabs metoprolol succinate 50 mg 50 mg PO QPM #30 tabs 07/26/23 tablet,extended release 24 hr estradiol 0.01% (0.1 mg/gram) 0.25 g vaginal 2XW #42.5 grams 11/12/23 vaginal cream omeprazole 40 mg capsule,delayed 40 mg PO DAILY #90 caps 01/27/24 release fluoxetine 10 mg capsule 10 mg PO DAILY #90 caps 05/05/24 hydrocodone 5 mg-acetaminophen 325 1 tab PO Q6H PRN pain #20 tabs 05/11/24 mg tablet ondansetron 4 mg disintegrating 4 mg PO Q8H PRN nausea and 05/11/24 tablet vomiting #20 tabs Allergies Allergy/AdvReac Type Severity Reaction Status Date / Time mometasone furoate Allergy Severe ANAPHYLAXIS Verified 05/11/24 15:36 [MOMETASONE FUROATE] adhesive [ADHESIVE] Allergy Mild LOCAL Verified 05/11/24 15:36 HIVES,BLISTERS diclofenac [From VOLTAREN] Allergy Mild HIVES Verified 05/11/24 15:36 latex [LATEX] Allergy Mild HIVES,BLIST Verified 05/11/24 15:36 ERS ezetimibe [EZETIMIBE] AdvReac Severe Muscle Verified 05/11/24 15:36 pain, spasms nirmatrelvir AdvReac Severe loss of Verified 05/11/24 15:36 [From Paxlovid (EUA)] consciousness ritonavir AdvReac Severe loss of Verified 05/11/24 15:36 [From Paxlovid (EUA)] consciousness codeine [CODEINE] AdvReac Mild HALLUCINATI Verified 05/11/24 15:36 ONS gluten [GLUTEN] AdvReac Mild IMMEDIATE Verified 05/11/24 15:36 DIARRHEA simvastatin [SIMVASTATIN] AdvReac Mild MYALGIAS Verified 05/11/24 15:36 Boaaxxa-OJN-AdX Reductase AdvReac Mild MYALGIAS Verified 05/11/24 15:36 Inhibitor [[id number] REDUCTASE INHIBITOR] Milk Containing Products AdvReac Unknown CRAMPING,DRINKS Verified 05/11/24 15:36 (Dairy) ALMOND [MILK CONTAINING PRODUCTS] MILK Review of Systems Review of Systems Narrative: GENERAL: Negative chills, fatigue, malaise, fever, sweats. HEENT: Negative sinus pain, ear pain, sore throat RESPIRATORY: Negative dyspnea, cough CARDIOVASCULAR: Negative chest pain, palpitations GASTROINTESTINAL: Negative nausea, vomiting, abdominal pain : Negative dysuria, frequency, hematuria MUSCULOSKELETAL: Positive muscle or bony pain SKIN: Negative rash, skin lesions, positive skin wound NEUROLOGIC: Negative weakness, numbness ROS Unobtainable: All systems reviewed & are unremarkable except as noted in HPI and below Patient History Medical History (Updated 05/11/24 @ 17:56 by Oscar Hill MD) Hand fracture, left (~01/27/23) Maxillary fracture, right side, sequela (~01/27/23) Nasal bone fracture (~01/27/23) Right rotator cuff tendonitis Hematuria Left knee injury (~10/23/22) Anticoagulation monitoring, INR range 2.5-3.5 COVID-19 virus infection (09/2021) MHIAI (obstructive sleep apnea) Aortic regurgitation Depression, major, recurrent Osteoporosis Allergy to casein Pulmonary hypertension Vision abnormalities Seasonal allergies Osteoarthritis (~1999) Depression (~1966) Anxiety (~1979) Osteopenia (~1997) Fracture (~2007) Foot pain (~2007) Carpal tunnel syndrome (~1987) Rheumatic fever (~1953) Chickenpox Measles (~1951) Mumps History of recurrent ear infection Urinary incontinence (~2002) IBS (irritable bowel syndrome) (~2014) GERD (gastroesophageal reflux disease) (~2008) Heavy menstrual period (~1994) Abnormal Pap smear of cervix Fibromyalgia Migraines (~1959) Sinus tachycardia Hypertension Hyperlipidemia Class 1 obesity (08/20/14) continuous churn buttermaker current use of anticoagulant therapy Surgical History Status post total shoulder arthroplasty Hx of bilateral cataract extraction S/P right unicompartmental knee replacement Hx of plastic surgery S/P left unicompartmental knee replacement Hx of toe surgery Hx of tubal ligation Anesthesia H/O mitral valve replacement (01/16/09) Surgical procedure planned (~1996) Status post colonoscopy (~2006) Status post bunionectomy (~2010) Status post appendectomy (~1980) Family History Brother Age: 64 Hypertension High cholesterol Child Age: 52 Mental health problem Father High cholesterol Heart attack Social History household members: spouse Smoking Status: Never smoker alcohol intake: current substance use type: does not use Smoking Status: Never smoker alcohol intake frequency: a few times a month Exam Narrative Exam Narrative: GENERAL: in no distress, not toxic not dyspneic HEAD: Normocephalic. EYES: Pupils equal round ENT: Mucous membranes moist. NECK: Trachea midline. Patient in C-collar/hard collar by EMS on arrival. CARDIOVASCULAR: Regular rate and rhythm RESPIRATORY: Clear to auscultation. Breath sounds equal bilaterally. No wheezes, rales, or rhonchi. GASTROINTESTINAL: Abdomen soft, non-tender EXTREMITIES: No gross deformities. Skin tear right elbow BACK: Patient in isolation equipment by EMS NEURO: AOx4. Clear speech SKIN: Warm and dry PSYCH: Not anxious, is cooperative Initial Vital Signs Initial Vital Signs: Vital Signs Temperature 98.1 F 05/11/24 15:36 Pulse Rate 84 05/11/24 15:36 Respiratory Rate 16 05/11/24 15:36 Blood Pressure 191/88 H 05/11/24 15:36 Pulse Oximetry 95 05/11/24 15:36 Oxygen Delivery Method Room Air 05/11/24 15:36 Course Orders Ordered: Discontinued Medications Hydrocodone Bitart/Acetaminophen (Hydrocodone/Acet 5/325 Prepack) 1 bottle MISC DIRECTED ONE Stop: 05/11/24 18:22 Last Admin: 05/11/24 18:30 Dose: 1 bottle Documented By: ALBERTO Bacitracin (Bacitracin Oint 0.9 Gm Pckt) 1 applic TOP NOW ONE Stop: 05/11/24 17:04 Last Admin: 05/11/24 17:08 Dose: 1 applic Documented By: ALBERTO Fentanyl (Fentanyl 100 Mcg/2 Ml Inj) 50 mcg IV NOW ONE Stop: 05/11/24 17:05 Last Admin: 05/11/24 17:08 Dose: 50 mcg Documented By: ALBERTO Morphine Sulfate (Morphine 4 Mg/Ml Inj) 4 mg IV NOW ONE Stop: 05/11/24 16:17 Last Admin: 05/11/24 16:26 Dose: 4 mg Documented By: ALBERTO Ondansetron HCl (Ondansetron 4 Mg/2 Ml Inj) 4 mg IV NOW ONE Stop: 05/11/24 17:47 Last Admin: 05/11/24 18:06 Dose: 4 mg Documented By: ALBERTO Sodium Chloride (Sodium Chloride 0.9% Flush) 50 ml IV NOW ONE Stop: 05/11/24 17:16 Last Admin: 05/11/24 17:52 Dose: Not Given Documented By: ALBERTO Vital Signs Vital signs: Vital Signs - 8 hr 05/11/24 15:36 Temperature 98.1 F Pulse Rate 84 Respiratory Rate 16 Blood Pressure 191/88 H Pulse Oximetry 95 Oxygen Delivery Method Room Air MDM - Trauma Lab Data 05/11/24 15:15 05/11/24 15:15 Labs: Lab Results 05/11/24 Range/Units 15:15 WBC 5.2 (4.5-11.0) X10^3/uL RBC 4.29 (4.0-5.2) X10^6/uL Hgb 13.5 (12.0-16.0) g/dL Hct 40.2 (36-46) % MCV 93.7 (80-100) fL MCH 31.5 (26-34) PG MCHC 33.6 (30-36) % RDW 13.9 (11.6-14.8) % Plt Count 203 (150-400) X10^3/uL Neut % (Auto) 52.8 (50-75) % Lymph % (Auto) 28.0 (25-40) % [place] % (Auto) 14.0 (3-14) % Eos % (Auto) 4.6 H (2-4) % Baso % (Auto) 0.6 (0-2) % Neut # (Auto) 2700 (2020-6943) /uL Lymph # (Auto) 1500 (2458-8077) /uL [place] # (Auto) 700 (0-900) /uL Eos # (Auto) 200 (0-450) /uL Baso # (Auto) 0 (0-100) /uL PT 22.3 H (9.4-12.5) SECONDS INR 2.0 H (0.9-1.3) APTT 47 H (25.1-36.5) SECONDS Sodium 136 L (137-145) mmol/L Potassium 4.0 (3.4-5.1) mmol/L Chloride 102 (98-107) mmol/L Carbon Dioxide 27 (22-32) mmol/L BUN 14 (7-17) mg/dL Creatinine 0.80 (0.52-1.04) mg/dL Estimated GFR > 60 (>60) mL/min BUN/Creatinine Ratio 17.5 (6-22) Glucose 94 (80-110) mg/dL Calcium 9.5 (8.4-10.2) mg/dL Total Bilirubin 0.6 (0.2-1.3) mg/dL AST 43 H (14-36) IU/L ALT 31 (<35) IU/L Alkaline Phosphatase 75 (38-126) U/L Total Creatine Kinase 167 H (30-135) U/L Troponin I 0.015 (0.01-0.034) ng/mL Total Protein 7.8 (6.3-8.2) g/dL Albumin 4.7 (3.5-5.0) g/dL Globulin 3.1 (1.7-4.1) g/dL Albumin/Globulin Ratio 1.5 (1.0-2.8) Point of Care Testing Glucose POC 92 Imaging Data Extremity x-ray #1: Radiologist's Impression: [address] [address] XRay Report Signed Patient: Arleen Amador MR#: [id number] : 1945 Acct:[id number] Age/Sex: 78 / F Date of Service: 05/11/24 Loc: ED Accession Number: [id number] Procedure: XR elbow RT 2V Ordering Provider: Oscar Hill MD PROCEDURE: XR ELBOW RT 2V INDICATIONS: Fall/injury TECHNIQUE: 2 views of the elbow were acquired. COMPARISON: None. FINDINGS AND IMPRESSION: No displaced fracture. No dislocation. Mild degenerative changes. No significant joint effusion. If there is high concern for occult injury, consider repeat radiography or cross-sectional imaging. Dictated by: Bobby Vergara M.D. on 05/11/2024 at 16:40 Approved by: Bobby Vergara M.D. on 05/11/2024 at 16:41 Extremity x-ray #2: Radiologist's Impression: [address] [address] XRay Report Signed Patient: Arleen Amador MR#: [id number] : 1945 Acct:[id number] Age/Sex: 78 / F Date of Service: 05/11/24 Loc: ED Accession Number: [id number] Procedure: XR ankle RT min 3V Ordering Provider: Oscar Hill MD PROCEDURE: XR ANKLE RT MIN 3V INDICATIONS: Fall/injury TECHNIQUE: 3 views of the ankle were acquired. COMPARISON: None. FINDINGS AND IMPRESSION: Mild background degenerative changes. No displaced fracture or dislocation. No suspicious soft tissue calcifications. If there is high concern for occult injury, consider repeat radiography or cross-sectional imaging. External densities projecting over the lower ankle and foot limits evaluation. Dictated by: Bobby Vergara M.D. on 05/11/2024 at 16:41 Approved by: Bobby Vergara M.D. on 05/11/2024 at 16:43 CT scan - head: Radiologist's Impression: [address] [address] [address] Scan Report Signed Patient: Arleen Amador MR#: [id number] : 1945 Acct:[id number] Age/Sex: 78 / F Date of Service: 05/11/24 Loc: ED Accession Number: [id number] Procedure: CT head/brain wo con Ordering Provider: Oscar Hill MD PROCEDURE: CT HEAD/BRAIN WO CON INDICATIONS: Trauma TECHNIQUE: Noncontrast 4.5 mm thick angled axial sections acquired from the foramen magnum to the vertex, with coronal and sagittal reformats. For radiation dose reduction, the following was used: automated exposure control, adjustment of mA and/or kV according to patient size. COMPARISON: [facility], CT, CT HEAD/BRAIN WO CON, 01/27/2023, 17:45. FINDINGS: Image quality: Diagnostic. CSF spaces: Basal cisterns are patent. No extra-axial fluid collections. The ventricles are symmetric in size and shape. Brain: No intracranial bleeds or masses. There is cerebral volume loss for age, with resultant ventricular and sulcal prominence. There are periventricular and deep white matter chronic small vessel ischemic changes. There is intracranial internal carotid artery atherosclerosis. Skull and face: Calvarium and visualized facial bones appear intact, without suspicious lesions. Sinuses: Chronically opacified right maxillary sinus. Patchy anterior right ethmoid disease. IMPRESSION: 1. No acute intracranial pathology. 2. Chronic right maxillary sinus opacification and patchy ethmoid disease. Dictated by: Dominguez Steel M.D. on 05/11/2024 at 16:57 Approved by: Dominguez Steel M.D. on 05/11/2024 at 16:59 CT - cervical spine: Radiologist's Impression: [place] [address] CT Scan Report Signed Patient: Arleen Amador MR#: [id number] : 1945 Acct:[id number] Age/Sex: 78 / F Date of Service: 05/11/24 Loc: ED Accession Number: [id number] Procedure: CT cervical spine wo con Ordering Provider: Oscar Hill MD PROCEDURE: CT CERVICAL SPINE WO CON INDICATIONS: Trauma TECHNIQUE: Noncontrast 3 mm thick sections acquired from the skull base to the T4 level. Sagittal and coronal reformats were then constructed. For radiation dose reduction, the following was used: automated exposure control, adjustment of mA and/or kV according to patient size. COMPARISON: [facility], CT, CT CERVICAL SPINE WO CON, 01/27/2023, 17:45. FINDINGS: Image quality: Excellent. Bones: No fractures or dislocations. Diffuse cervical spondylitic change. Visualized superior ribs are intact. Soft tissues: Prevertebral soft tissues are normal in thickness. No paravertebral hematomas. No apical pneumothoraces. Biapical interstitial pulmonary edema. IMPRESSION: No displaced fracture or traumatic subluxation. Diffuse cervical spondylitic change. Interstitial pulmonary edema. Dictated by: Dominguez Steel M.D. on 05/11/2024 at 16:59 Approved by: Dominguez Steel M.D. on 05/11/2024 at 17:04 CT chest abdomen and pelvis: Radiologist's Impression: [place] [address] CT Scan Report Signed Patient: Arleen Amador MR#: [id number] : 1945 Acct:[id number] Age/Sex: 78 / F Date of Service: 05/11/24 Loc: ED Accession Number: [id number] Procedure: CT Trauma Chest Abdomen Pelvis Ordering Provider: Oscar Hill MD PROCEDURE: CT TRAUMA CHEST ABDOMEN PELVIS INDICATIONS: trauma TECHNIQUE: MDCT axial chest images were obtained with IV contrast in the arterial phase. Maximum intensity projections and multiplanar reformats were obtained. MDCT axial abdomen and pelvis images were obtained with IV contrast in the portal venous phase. Multiplanar reformats were obtained. Optional delayed phase scanning may also be obtained Advanced techniques were used to lower patient radiation exposure. COMPARISON:None. FINDINGS Image Quality: Motion degraded Chest: Lungs and pleura: No pneumothorax or hemothorax. No pulmonary contusions or lacerations. No solid pulmonary nodule requiring follow-up. Scattered atelectasis. Mild septal thickening, possibly edema Vascular: No dissection or pseudoaneurysm. No incidental central pulmonary embolism. No hemopericardium. Cardiomegaly. Mitral annuloplasty Mediastinum: No mediastinum hematoma. No suspicious mass or lymph nodes. No actionable thyroid nodules. Chest wall: Sternotomy wires. Partially seen right shoulder arthroplasty. No displaced rib fractures. Motion artifact limits evaluation of the lower ribs. Thoracic spine: No acute fracture or traumatic subluxation. ABDOMEN and PELVIS: Liver: No laceration or capsular hematoma. Gallbladder: Unremarkable. Biliary system: Non-dilated. Pancreas: Unremarkable. Spleen: No laceration or capsular hematoma. Adrenals: No suspicious nodules. Kidneys: No contrast extravasation or hydronephrosis. No solid masses. subcentimeter lesions are too small to characterize, usually cysts. Vessels and lymph nodes: No pathology lymph nodes by size criteria. No dissection or aneurysm. No retroperitoneal hematoma. Bowel and peritoneum: No suspicious region of mesenteric hemorrhage or hemoperitoneum. No bowel obstruction. Colonic diverticula. Pelvis: Unremarkable bladder. Pelvic ring and femurs: No pelvic ring disruption. No hip fractures. Right femoral fixation hardware. Lumbar spine: No acute fracture or traumatic subluxation. Abdominal wall: No drainable fluid collection or hematoma. IMPRESSION: No significant traumatic injury identified. Many other incidental findings above. Dictated by: Bobby Vergara M.D. on 05/11/2024 at 17:21 Approved by: Bobby Vergara M.D. on 05/11/2024 at 17:29 [facility] Narrative Medical decision making narrative: Patient is on warfarin for atrial fibrillation. Patient complains of neck pain right elbow pain right hip pain right ankle pain. Patient states she was on the 2nd step of stairs and ?blacked out ?for less than 2nd, she awoke to find herself falling to the ground and could not stop herself. She landed mostly on her right side. EMS placed C-collar in place. Had 50 mcg of fentanyl by EMS. Patient states she had syncopal episode back in February of 2024 and was told it was due to atrial fibrillation. Patient in no distress at this time. Denies any pre event chest pain shortness of breath numbness tingling or weakness. Only dizziness. No headache. After history and exam, CT head cervical spine chest abdomen pelvis PT INR PTT EKG CBC CMP troponin, patient is up-to-date with tetanus less than 5 years., x-ray right elbow and right ankle, pain is controlled at this time MDM Medical records reviewed: No recent visit for this complaint Differential considered: Includes but not limited to cervical fracture cervical strain elbow/hip/ankle strain sprain contusion fracture dislocation Lab Test results independently reviewed as above. Pertinent findings: WBC 5.2 hemoglobin 13.5 INR 2.0 sodium 136 potassium 4.0 BUN 14 creatinine 0.8 GFR greater than 60 AST 43 ALT 31 troponin 0.015 Independently reviewed EKG normal sinus rhythm rate 82 normal EKG Imaging studies independently reviewed: X-ray right elbow and ankle no acute finding CT head cervical spine chest abdomen pelvis no acute finding Consultations: None indicated at this time Treatments: Morphine fentanyl Re-evaluations: 5:[address] C-spine reassuring. Call or removed. No midline tenderness or step-off. Updated patient results so far. Awaiting for results of CT chest abdomen pelvis. 5:47 p.m.. Updated patient results. Imaging results are reassuring. Patient cleared off the Trauma Nico from EMS. Patient able to sit up and pivot on her buttock to get the Trauma Nico off. Examination of the back no midline tenderness or step-off. No bruising seen. No bruising seen on the right hip area. Skin exposed. Patient does not want evaluation for her syncope episode while standing. She states this is not not new. It happens from time to time she states she has been worked up for this in the past. Discussion: Appropriate for discharge home exam is reassuring. Return precautions reviewed with patient. Patient does not want evaluation for her syncopal episode. This is happened in the past and has already been evaluated for it and due to AFib she states. Return precautions reviewed. Nontoxic at discharge. Patient lives with her . She is motivated to go home. She does not want to be admitted or observed here. She has to take care of her at home. Patient up and bearing weight at time of discharge. Able to ambulate with assist. Diagnosis: Elbow skin tear right hip contusion right ankle contusion Discharge Plan Departure Patient Disposition: Home Clinical Impression: Contusion of right ankle, initial encounter Contusion of hip, right Qualifiers: Encounter type: initial encounter Qualified Code(s): S70.01XA - Contusion of right hip, initial encounter Cervical muscle strain Qualifiers: Encounter type: initial encounter Qualified Code(s): S16.1XXA - Strain of muscle, fascia and tendon at neck level, initial encounter Skin tear of elbow without complication Qualifiers: Encounter type: initial encounter Laterality: right Qualified Code(s): S51.011A - Laceration without foreign body of right elbow, initial encounter Instructions: DI for Contusion, DI for Cervical Muscle Strain Activity Restrictions/Additional Instructions: Your exam and laboratory studies and imaging studies are reassuring. No driving operating machinery, please see family doctor within a week for re-evaluation. Prescription pain medication has been provided for you. Return if worse if any questions or concerns. Change dressing on your right elbow daily with warm soap and water and apply a thin layer of topical antibiotic. Prescriptions: New hydrocodone-acetaminophen 5-325 mg tablet 1 tab PO Q6H PRN (Reason: pain) Qty: 20 0RF ondansetron 4 mg tablet,disintegrating 4 mg PO Q8H PRN (Reason: nausea and vomiting) Qty: 20 0RF No Action aspirin 81 MG tablet,delayed release (DR/EC) 81 mg PO QDAY Qty: 0 metoprolol succinate 50 mg tablet extended release 24 hr 50 mg PO QPM Qty: 30 2RF omeprazole 40 mg capsule,delayed release(DR/EC) 40 mg PO DAILY Qty: 90 3RF fluoxetine 10 mg capsule 10 mg PO DAILY Qty: 90 1RF warfarin 7.5 mg tablet See Rx Instructions .ROUTE .COMPLEX Qty: 120 3RF Protocol: Dose Management Condition: Wednesday Dose/Route: 7.5 mg Instruction: 1 x 7.5 mg tablet Condition: Wednesday Dose/Route: 7.5 mg Instruction: 1 x 7.5 mg tablet Condition: Wednesday Dose/Route: 7.5 mg Instruction: 1 x 7.5 mg tablet Condition: Wednesday Dose/Route: 7.5 mg Instruction: 1 x 7.5 mg tablet Condition: Dose/Route: 7.5 mg Instruction: 1 x 7.5 mg tablet Condition: Wednesday Dose/Route: 7.5 mg Instruction: 1 x 7.5 mg tablet Condition: Wednesday Dose/Route: 7.5 mg Instruction: 1 x 7.5 mg tablet Protocol Text: Adjustment Start Date: Wednesday04/18/24 INR Value: 2.7 INR Date: 04/18/24 Recheck Date: 05/15/24 Dose Instruction: TAKE 1 TABLET BY MOUTH 5 DAYS PER WEEK, AND 1 AND 1/2 TABLETS (11.25MG) ON WEDNESDAY AND FRIDAYS Rx Instructions: take 7.5mg daily or as directed estradiol 0.01 % (0.1 mg/gram) cream 0.25 g vaginal 2XW Qty: 42.5 3RF Rx Instructions: Apply thin layer around urethra opening ezetimibe 10 mg tablet 10 mg PO DAILY Referrals: Krissy Ramirez DO [Primary Care Provider] - Stand Alone Forms: Patient Portal/API/Survey
[2024-05-11 15:36] VITALS: BP 191/88; PULSE 84; RESP 16; TEMP 36.7; O2SAT 95
[2024-05-11 16:01] LABS: Add Manual Diff / Slide Review NO; Basophils Absolute Auto 0 /uL (0-100); Basophils Percent Auto 0.6 % (0-2); Eosinophils Absolute Auto 200 /uL (0-450); Eosinophils Percent Auto 4.6 % (2-4); Hematocrit 40.2 % (36-46); Hemoglobin 13.5 g/dL (12.0-16.0); Lymphocytes Absolute Auto 1500 /uL (1100-4500); Mean Corpuscular HGB Conc 33.6 % (30-36); Mean Corpuscular Hemoglobin 31.5 PG (26-34); Mean Corpuscular Volume 93.7 fL (80-100); Monocytes Absolute Auto 700 /uL (0-900); Neutrophils Absolute Auto 2700 /uL (1500-7000); Neutrophils Percent Auto 52.8 % (50-75); Platelet Count 203 X10^3/uL (150-400); Red Blood Cell Count 4.29 X10^6/uL (4.0-5.2); Red Cell Distribution Width 13.9 % (11.6-14.8); White Blood Cell Count 5.2 X10^3/uL (4.5-11.0)
[2024-05-11 16:12] LABS: Prothrombin Time 22.3 SECONDS (9.4-12.5)
[2024-05-11 16:15] LABS: PTT Partial Thromboplastin Tim 47 SECONDS (25.1-36.5)
[2024-05-11 16:17] LABS: Alanine Aminotransferase 31 IU/L (<35); Albumin 4.7 g/dL (3.5-5.0); Albumin Globulin Ratio 1.5 (1.0-2.8); Alkaline Phosphatase 75 U/L (38-126); Aspartate Aminotransferase 43 IU/L (14-36); BUN Creatinine Ratio 17.5 (6-22); Bilirubin Total 0.6 mg/dL (0.2-1.3); Blood Urea Nitrogen 14 mg/dL (7-17); Calcium 9.5 mg/dL (8.4-10.2); Carbon Dioxide 27 mmol/L (22-32); Chloride 102 mmol/L (98-107); Creatine Kinase 167 U/L (30-135); Estimated Glomerular Filt Rate > 60 mL/min (>60); Globulin 3.1 g/dL (1.7-4.1); Glucose 94 mg/dL (80-110); HEMOLYSIS 16 (0-50); Sodium 136 mmol/L (137-145); Total Protein 7.8 g/dL (6.3-8.2)
[2024-05-11] MEDS: MORPHINE 4 MG/ML INJ IV (16:26)
[2024-05-11 16:29] LABS: Troponin I 0.015 ng/mL (0.01-0.034)
[2024-05-11] MEDS: fentaNYL 100 MCG/2 ML INJ 50 MCG IV (17:08)
[2024-05-11] MEDS: BACITRACIN OINT 0.9 GM PCKT 1 APPLIC TOP (17:08)
[2024-05-11] MEDS: ONDANSETRON 4 MG/2 ML INJ IV (18:06)
[2024-05-11] MEDS: HYDROCODONE/ACET 5/325 PREPACK 1 BOTTLE MISC (18:30)
[2024-05-11 18:39] VITALS: BP 109/55; PULSE 84; O2SAT 96
== END 2024-05-11 19:07 | disposition home or self-care (01) ==
PROVIDERS: Emergency Provider Emergency Medicine; PCP Family Medicine
DX: S51.011A Laceration without foreign body of right elbow, initial encounter (principal); S16.1XXA Strain of muscle, fascia and tendon at neck level, initial encounter; S70.01XA Contusion of right hip, initial encounter; S90.01XA Contusion of right ankle, initial encounter; R55 Syncope and collapse; I48.91 Unspecified atrial fibrillation; W10.9XXA Fall (on) (from) unspecified stairs and steps, initial encounter; Z79.01 Long term (current) use of anticoagulants
CPT/HCPCS: 70450; 71275; 72125; 73070; 73610; 74177; 80053; 82550; 84484; 85025; 85610; 85730; 93005; 96374; 96375; 99284; J2270; J2405; J3010; Q9967

== ENCOUNTER → 2024-06-01 10:08 | Outpatient (CLI) | payer MEDICARE, SELFPAY ==
[2022-06-04 15:10] VITALS: BMI 31.6
--- NOTE | 2024-06-01 10:09 | DI.RAD.S_ITS ---
PROCEDURE: XR FOOT RT 2V INDICATIONS: pain from fall TECHNIQUE: 2 views of the foot were acquired. COMPARISON: None. FINDINGS AND IMPRESSION: Limited two views of the foot without acute displaced fracture or dislocation. There are mild background degenerative changes. Plantar enthesopathy. If there is high concern for occult injury, consider repeat radiography or cross-sectional imaging. Dictated by: Bobby Vergara M.D. on 06/01/2024 at 11:31 Approved by: Bobby Vergara M.D. on 06/01/2024 at 11:32
--- NOTE | 2024-06-01 10:09 | DI.RAD.S_ITS ---
PROCEDURE: XR FEMUR RT MIN 2V INDICATIONS: Pain from Fall TECHNIQUE: 2 views of the femur were acquired. COMPARISON: None. FINDINGS AND IMPRESSION: The more proximal of the interlocking screws at the distal femoral shaft is broken. No acute osseous injury identified otherwise in the femoral shaft. Hip fracture findings are separately dictated. Dictated by: Bobby Vergara M.D. on 06/01/2024 at 11:30 Approved by: Bobby Vergraa M.D. on 06/01/2024 at 11:31
--- NOTE | 2024-06-01 10:09 | DI.RAD.S_ITS ---
PROCEDURE: XR HIP W PEL IF DONE RT 2V INDICATIONS: Pain from Fall TECHNIQUE: 3 views of the hip were acquired. COMPARISON: [facility], [facility], XR HIP W PEL IF DONE RT 2V, 05/06/2024, 9:55. [facility], CR, XR HIP W PEL IF DONE RT 2V, 07/30/2023, 10:16. FINDINGS AND IMPRESSION: Suspect mildly impacted and displaced right subcapital hip fracture. Background moderate bilateral hip degenerative changes. Similar partially visualized intramedullary jessica and interlocking screws in the femur on the right. Pelvic ring appears intact. Large fecal loading. Dictated by: Bobby Vergara M.D. on 06/01/2024 at 10:42 Approved by: Bobby Vergara M.D. on 06/01/2024 at 10:43
--- NOTE | 2024-06-01 10:09 | DI.RAD.S_ITS ---
PROCEDURE: XR KNEE RT 1TO2V INDICATIONS: Pain from fall TECHNIQUE: 2 views of the knee were acquired. COMPARISON: [facility], CR, XR KNEE LT 3V, 03/19/2021, 11:15. FINDINGS AND IMPRESSION: Broken interlocking screw at the distal femoral shaft (the more proximal screw). Knee arthroplasty in place with expected hardware positioning. No acute displaced osseous injury identified. Possible small joint effusion and intra-articular loose body. If there is high concern for occult injury, consider repeat radiography or cross-sectional imaging. Dictated by: Bobby Vergara M.D. on 06/01/2024 at 11:29 Approved by: Bobby Vergara M.D. on 06/01/2024 at 11:30
== END ==
LOC: RAD 10:09
PROVIDERS: PCP Family Medicine; Referring Provider Family Medicine; Visit Provider Family Medicine
DX: T84.318A Breakdown (mechanical) of other bone devices, implants and grafts, initial encounter (principal); M25.561 Pain in right knee; R29.898 Other symptoms and signs involving the musculoskeletal system; M79.671 Pain in right foot; M25.551 Pain in right hip; M79.604 Pain in right leg; Z96.651 Presence of right artificial knee joint
CPT/HCPCS: 73502; 73552; 73560; 73620

== ENCOUNTER 2024-06-01 10:48 | Emergency (ER) | payer MEDICARE, SELFPAY ==
[2022-06-04 15:10] VITALS: BMI 31.6
[2024-06-01] VITALS (20 sets, daily range): BP systolic 119–193; BP diastolic 58–97; PULSE 85–97; RESP 10–24; TEMP 36.5–36.8; O2SAT 93–100; BMI 27.4
--- NOTE | 2024-06-01 11:49 | DI.CT.S_ITS ---
PROCEDURE: CT HEAD/BRAIN WO CON INDICATIONS: Intermittent head ache after falls on thinners TECHNIQUE: Noncontrast 4.5 mm thick angled axial sections acquired from the foramen magnum to the vertex, with coronal and sagittal reformats. For radiation dose reduction, the following was used: automated exposure control, adjustment of mA and/or kV according to patient size. COMPARISON: [facility], CT, CT HEAD/BRAIN WO CON, 05/11/2024, 15:35. FINDINGS: Image quality: Diagnostic CSF spaces: Basal cisterns are patent. Lateral ventricles are symmetric. Volume: Vascular calcifications. Periventricular white matter disease is commonly seen with chronic microangiopathy. Volume loss is present. These findings are moderate Brain: No acute hemorrhage. No gross loss of childs-white differentiation Craniofacial structures: Partially seen right maxillary sinus opacification. IMPRESSION: No acute intracranial pathology. Dictated by: Bobby Vergara M.D. on 06/01/2024 at 12:41 Approved by: Bobby Vergara M.D. on 06/01/2024 at 12:42
--- NOTE | 2024-06-01 11:59 | DI.CT.S_ITS ---
PROCEDURE: CT PEL WO CON INDICATIONS: Right Hip pain, prior internal fixation, recent fall TECHNIQUE: Noncontrast 3 mm axial sections acquired through the bony pelvis, with coronal and sagittal reformatting. COMPARISON: [facility], CT, CT TRAUMA CHEST ABDOMEN PELVIS, 05/11/2024, 15:35. FINDINGS: Image quality: Diagnostic Bones: Mildly displaced and impacted subcapital hip fracture. Intramedullary jessica and interlocking screws in place in the femoral shaft. The more proximal screw in the distal shaft is broken. Soft tissues: Surrounding soft tissue swelling is present. Colonic diverticula. IMPRESSION: Right subcapital hip fracture. Intramedullary jessica and interlocking screws in place in the femoral shaft. The more proximal screw in the distal shaft is broken. Dictated by: Bobby Vergara M.D. on 06/01/2024 at 12:43 Approved by: Bobby Vergara M.D. on 06/01/2024 at 12:44
--- NOTE | 2024-06-01 12:13 | PC.NURSE ---
PureWick placed at 1213. Patient educated on how the device works, call light in reach.
--- NOTE | 2024-06-01 12:18 | ED.LOWEXIN ---
HPI - Extremity Injury (Lower) General Chief Complaint: Extremity Injury, Lower Stated Complaint: Right hip pain after fall, on blood thinners Time Seen by Provider: 06/01/24 11:39 Source: patient Mode of arrival: Ambulatory History of Present Illness HPI Narrative: 78-year-old female with history of mechanical aortic valve replacement on chronic warfarin anticoagulation, history of prior right hip fracture status post ORIF in [facility] 1996, had ground level fall 05/11/2024 with right-sided hip pain, reports negative x-rays of the hip, was able to be discharged home, about 2 weeks ago at home was going to the bathroom in a twisting manner trying to sit on the commode when she lost her balance and slipped, did not fall or hit her head at that time, but since that twisting event has had right hip pain. She also has global headache since the initial fall 05/11/2024, can not recall if she had CT scan imaging of the head, does not recall any interval head strike. No nausea or vomiting. No focal weakness or numbness. She also has right-sided ankle and right knee pain since the twisting event 2 weeks ago. History of remote right partial knee replacement. History of right shoulder surgery, does not seem to have increased pain in the right shoulder area. She presented to [facility] today, had x-rays right femur, knee, foot. X-ray right knee and foot negative. X-ray right femur done from clinic showed interlocking screws distal femoral shaft that appear broken. X-ray right hip suspicious for displaced right subcapital hip fracture, intramedullary jessica and interlocking screws noted as well, pelvic ring appeared intact. Referred here for further evaluation and disposition. Related Data Home Medications Medication Instructions Recorded Confirmed aspirin 81 mg tablet,delayed 81 mg PO QDAY ##0 08/12/16 06/01/24 release ezetimibe 10 mg tablet 10 mg PO DAILY 06/15/23 06/01/24 Previous Rx's Medication Instructions Recorded warfarin 7.5 mg tablet See Rx Instructions .Route 07/20/23 .COMPLEX #120 tabs metoprolol succinate 50 mg 50 mg PO QPM #30 tabs 07/26/23 tablet,extended release 24 hr estradiol 0.01% (0.1 mg/gram) 0.25 g vaginal 2XW #42.5 grams 11/12/23 vaginal cream omeprazole 40 mg capsule,delayed 40 mg PO DAILY #90 caps 01/27/24 release fluoxetine 10 mg capsule 10 mg PO DAILY #90 caps 05/05/24 ondansetron 4 mg disintegrating 4 mg PO Q8H PRN nausea and 05/11/24 tablet vomiting #20 tabs hydrocodone 5 mg-acetaminophen 325 0.5 tab PO Q6H PRN breakthrough 06/01/24 mg tablet giang #7 tabs Allergies Allergy/AdvReac Type Severity Reaction Status Date / Time mometasone furoate Allergy Severe ANAPHYLAXIS Verified 06/01/24 09:24 [MOMETASONE FUROATE] adhesive [ADHESIVE] Allergy Mild LOCAL Verified 06/01/24 09:24 HIVES,BLISTERS diclofenac [From VOLTAREN] Allergy Mild HIVES Verified 06/01/24 09:24 latex [LATEX] Allergy Mild HIVES,BLIST Verified 06/01/24 09:24 ERS ezetimibe [EZETIMIBE] AdvReac Severe Muscle Verified 06/01/24 09:24 pain, spasms nirmatrelvir AdvReac Severe loss of Verified 06/01/24 09:24 [From Paxlovid (EUA)] consciousness ritonavir AdvReac Severe loss of Verified 06/01/24 09:24 [From Paxlovid (EUA)] consciousness codeine [CODEINE] AdvReac Mild HALLUCINATI Verified 06/01/24 09:24 ONS gluten [GLUTEN] AdvReac Mild IMMEDIATE Verified 06/01/24 09:24 DIARRHEA simvastatin [SIMVASTATIN] AdvReac Mild MYALGIAS Verified 06/01/24 09:24 Hiaztrb-EXX-FlG Reductase AdvReac Mild MYALGIAS Verified 06/01/24 09:24 Inhibitor [[id number] REDUCTASE INHIBITOR] Milk Containing Products AdvReac Unknown CRAMPING,DRINKS Verified 06/01/24 09:24 (Dairy) ALMOND [MILK CONTAINING PRODUCTS] MILK Patient History Medical History (Updated 06/01/24 @ 17:29 by Julien Mejia MD) Hand fracture, left (~01/27/23) Maxillary fracture, right side, sequela (~01/27/23) Nasal bone fracture (~01/27/23) Right rotator cuff tendonitis Hematuria Left knee injury (~10/23/22) Anticoagulation monitoring, INR range 2.5-3.5 COVID-19 virus infection (09/2021) MIHAI (obstructive sleep apnea) Aortic regurgitation Depression, major, recurrent Osteoporosis Allergy to casein Pulmonary hypertension Vision abnormalities Seasonal allergies Osteoarthritis (~1999) Depression (~1966) Anxiety (~1979) Osteopenia (~1997) Fracture (~2007) Foot pain (~2007) Carpal tunnel syndrome (~1987) Rheumatic fever (~1953) Chickenpox Measles (~1951) Mumps History of recurrent ear infection Urinary incontinence (~2002) IBS (irritable bowel syndrome) (~2014) GERD (gastroesophageal reflux disease) (~2008) Heavy menstrual period (~1994) Abnormal Pap smear of cervix Fibromyalgia Migraines (~1959) Sinus tachycardia Hypertension Hyperlipidemia Class 1 obesity (08/20/14) 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 Surgical History (Updated 06/01/24 @ 17:29 by Julien Mejia MD) S/P open reduction and internal fixation (ORIF) of fracture of medial condyle of right femur S/P right unicompartmental knee replacement Status post total shoulder arthroplasty Hx of bilateral cataract extraction Hx of plastic surgery S/P left unicompartmental knee replacement Hx of toe surgery Hx of tubal ligation Anesthesia H/O mitral valve replacement (01/16/09) Surgical procedure planned (~1996) Status post colonoscopy (~2006) Status post bunionectomy (~2010) Status post appendectomy (~1980) Family History Brother Age: 64 Hypertension High cholesterol Child Age: 52 Mental health problem Father High cholesterol Heart attack Social History household members: spouse Smoking Status: Never smoker alcohol intake: current substance use type: does not use Smoking Status: Never smoker alcohol intake frequency: a few times a month Exam Narrative Exam Narrative: GENERAL: Well-developed patient, in mild distress. HEAD: Atraumatic. Normocephalic. EYES: Pupils equal round and reactive. Extraocular motions intact. No scleral icterus. No injection or drainage. ENT: Nose without bleeding, purulent drainage. Throat without erythema, tonsillar hypertrophy or exudate. Airway patent. NECK: Trachea midline. Non tender CARDIOVASCULAR: Regular rate and rhythm, systolic murmur c/w reported mechanical aortic valve. RESPIRATORY: Clear to auscultation. Breath sounds equal bilaterally. No wheezes, rales, or rhonchi. GASTROINTESTINAL: Abdomen soft, non-tender, nondistended. EXTREMITIES: No edema or joint tenderness. Well-healed anterior right knee scar without gross effusion or deformity without tenderness to medial or lateral joint line. No tenderness or swelling to the right ankle. She does have tenderness to the right anterior and right lateral trochanteric hip region. No limb length discrepancy. No skin changes. Old well-healed scar normal. BACK: Nontender without deformity or crepitance. No flank tenderness. NEURO: AOx3. Motor functions grossly nonfocal SKIN: No rash or erythema of visible areas Initial Vital Signs Initial Vital Signs: Vital Signs Temperature 98.2 F 06/01/24 11:06 Pulse Rate 89 06/01/24 11:06 Respiratory Rate 18 06/01/24 11:06 Blood Pressure 193/97 H 06/01/24 11:06 Pulse Oximetry 93 06/01/24 11:06 Oxygen Delivery Method Room Air 06/01/24 11:06 Course Orders Ordered: ED Orders 06/01/24 11:49 CT head/brain wo con Stat 06/01/24 11:59 CT pelvis wo con Stat 06/01/24 12:22 CBC Auto Diff [Complete Blood Count AUTO DIFF] Stat CMP [Comprehensive Metabolic Panel] Stat Prothrombin Time INR Stat 06/01/24 14:16 XR chest 1V Stat EKG-12 Lead Stat Discontinued Medications Hydromorphone HCl (Hydromorphone 0.5 Mg Inj) 0.5 mg IV NOW ONE Stop: 06/01/24 13:38 Last Admin: 06/01/24 13:41 Dose: 0.5 mg Documented By: SERAFIN Hydromorphone HCl (Hydromorphone 0.5 Mg Inj) 0.5 mg IV NOW ONE Stop: 06/01/24 17:46 Last Admin: 06/01/24 17:50 Dose: 0.5 mg Documented By: DEA Vital Signs Vital signs: Vital Signs - 8 hr 06/01/24 12:05 06/01/24 12:08 06/01/24 12:08 Temperature Pulse Rate 94 H 86 Respiratory Rate 22 23 Blood Pressure 176/88 H Pulse Oximetry 100 100 06/01/24 12:24 06/01/24 12:24 06/01/24 12:30 Temperature Pulse Rate 88 91 H Respiratory Rate 18 12 Blood Pressure 170/84 H Pulse Oximetry 99 98 06/01/24 12:30 06/01/24 13:00 06/01/24 13:00 Temperature Pulse Rate 88 Respiratory Rate 13 Blood Pressure 179/78 H 138/71 Pulse Oximetry 96 06/01/24 13:30 06/01/24 13:30 06/01/24 14:00 Temperature Pulse Rate 85 Respiratory Rate 15 Blood Pressure 158/72 H 126/60 Pulse Oximetry 98 06/01/24 14:00 06/01/24 14:30 06/01/24 14:31 Temperature Pulse Rate 86 87 85 Respiratory Rate 10 L 17 14 Blood Pressure Pulse Oximetry 94 97 96 06/01/24 14:31 06/01/24 15:00 06/01/24 15:00 Temperature Pulse Rate 89 Respiratory Rate 11 L Blood Pressure 167/72 H 126/60 Pulse Oximetry 94 06/01/24 15:30 06/01/24 15:30 06/01/24 16:00 Temperature Pulse Rate 95 H 90 Respiratory Rate 20 Blood Pressure 140/67 Pulse Oximetry 96 95 06/01/24 16:00 06/01/24 16:30 06/01/24 16:30 Temperature Pulse Rate 89 Respiratory Rate 18 Blood Pressure 137/63 124/60 Pulse Oximetry 96 06/01/24 17:00 06/01/24 17:01 06/01/24 17:01 Temperature Pulse Rate 91 H 92 H Respiratory Rate 16 18 Blood Pressure 122/84 Pulse Oximetry 98 98 06/01/24 17:30 06/01/24 17:30 06/01/24 18:00 Temperature Pulse Rate 92 H 97 H Respiratory Rate 16 17 Blood Pressure 153/72 H Pulse Oximetry 96 97 06/01/24 18:01 06/01/24 18:01 Temperature 97.7 F Pulse Rate 96 H Respiratory Rate 24 Blood Pressure 119/58 L Pulse Oximetry 96 MDM - Extremity Injury (Lower) Lab Data Attestation: I reviewed the patient's lab results. Lab results narrative: White blood cell count 09/19/1999, hemoglobin 13.9, platelets adequate. Basic metabolic panel unremarkable, renal function normal, liver functions normal. 06/01/24 12:22 06/01/24 12:22 Labs: Lab Results 03/20/25 Range/Units 12:22 WBC 7.7 (4.5-11.0) X10^3/uL RBC 4.49 (4.0-5.2) X10^6/uL Hgb 13.9 (12.0-16.0) g/dL Hct 41.7 (36-46) % MCV 92.9 (80-100) fL MCH 31.0 (26-34) PG MCHC 33.4 (30-36) % RDW 13.7 (11.6-14.8) % Plt Count 266 (150-400) X10^3/uL Neut % (Auto) 72.7 (50-75) % Lymph % (Auto) 14.3 L (25-40) % [place]born % (Auto) 8.9 (3-14) % Eos % (Auto) 3.2 (2-4) % Baso % (Auto) 0.9 (0-2) % Neut # (Auto) 5600 (0707-8882) /uL Lymph # (Auto) 1100 (0179-7689) /uL Sanborn # (Auto) 700 (0-900) /uL Eos # (Auto) 200 (0-450) /uL Baso # (Auto) 100 (0-100) /uL PT 38.2 H (9.4-12.5) SECONDS INR 3.5 H (0.9-1.3) Sodium 138 (137-145) mmol/L Potassium 4.4 (3.4-5.1) mmol/L Chloride 104 (98-107) mmol/L Carbon Dioxide 26 (22-32) mmol/L BUN 14 (7-17) mg/dL Creatinine 0.65 (0.52-1.04) mg/dL Estimated GFR > 60 (>60) mL/min BUN/Creatinine Ratio 21.5 (6-22) Glucose 97 (80-110) mg/dL Calcium 9.9 (8.4-10.2) mg/dL Total Bilirubin 0.7 (0.2-1.3) mg/dL AST 29 (14-36) IU/L ALT 17 (<35) IU/L Alkaline Phosphatase 125 (38-126) U/L Total Protein 7.5 (6.3-8.2) g/dL Albumin 4.4 (3.5-5.0) g/dL Globulin 3.1 (1.7-4.1) g/dL Albumin/Globulin Ratio 1.4 (1.0-2.8) Imaging Data CT scan - head: Radiologist's Impression: [address] [address] [address] Scan Report Signed Patient: Arleen Amador MR#: [id number] : 1945 Acct:[id number] Age/Sex: 78 / F Date of Service: 06/01/24 Loc: ED Accession Number: [id number] Procedure: CT head/brain wo con Ordering Provider: Julien Mejia MD PROCEDURE: CT HEAD/BRAIN WO CON INDICATIONS: Intermittent head ache after falls on thinners TECHNIQUE: Noncontrast 4.5 mm thick angled axial sections acquired from the foramen magnum to the vertex, with coronal and sagittal reformats. For radiation dose reduction, the following was used: automated exposure control, adjustment of mA and/or kV according to patient size. COMPARISON: [facility], CT, CT HEAD/BRAIN WO CON, 05/11/2024, 15:35. FINDINGS: Image quality: Diagnostic CSF spaces: Basal cisterns are patent. Lateral ventricles are symmetric. Volume: Vascular calcifications. Periventricular white matter disease is commonly seen with chronic microangiopathy. Volume loss is present. These findings are moderate Brain: No acute hemorrhage. No gross loss of childs-white differentiation Craniofacial structures: Partially seen right maxillary sinus opacification. IMPRESSION: No acute intracranial pathology. Dictated by: Bobby Vergara M.D. on 06/01/2024 at 12:41 Approved by: Bobby Vergara M.D. on 06/01/2024 at 12:42 CT pelvis noncontrast: Radiologist's Impression: [address] [address] [address] Scan Report Signed Patient: Arleen Amador MR#: [id number] : 1945 Acct:[id number] Age/Sex: 78 / F Date of Service: 06/01/24 Loc: ED Accession Number: [id number] Procedure: CT pelvis wo con Ordering Provider: Julien Mejia MD PROCEDURE: CT PEL WO CON INDICATIONS: Right Hip pain, prior internal fixation, recent fall TECHNIQUE: Noncontrast 3 mm axial sections acquired through the bony pelvis, with coronal and sagittal reformatting. COMPARISON: [facility], CT, CT TRAUMA CHEST ABDOMEN PELVIS, 05/11/2024, 15:35. FINDINGS: Image quality: Diagnostic Bones: Mildly displaced and impacted subcapital hip fracture. Intramedullary jessica and interlocking screws in place in the femoral shaft. The more proximal screw in the distal shaft is broken. Soft tissues: Surrounding soft tissue swelling is present. Colonic diverticula. IMPRESSION: Right subcapital hip fracture. Intramedullary jessica and interlocking screws in place in the femoral shaft. The more proximal screw in the distal shaft is broken. Dictated by: Bobby Vergara M.D. on 06/01/2024 at 12:43 Approved by: Bboby Vergara M.D. on 06/01/2024 at 12:44 Chest x-ray: Radiologist's Impression: [address] [address] XRay Report Signed Patient: Arleen Amador MR#: [id number] : 1945 Acct:[id number] Age/Sex: 78 / F Date of Service: 06/01/24 Loc: ED Accession Number: [id number] Procedure: XR chest 1V Ordering Provider: Julien Mejia MD PROCEDURE: XR CHEST 1V INDICATIONS: pre-op, hip fx TECHNIQUE: One view of the chest was acquired. COMPARISON: [facility], CR, XR CHEST 1V, 02/08/2023, 11:04. FINDINGS: Surgical changes and devices: Postsurgical changes from prior right shoulder reverse arthroplasty. Median sternotomy wires and prosthetic heart valve are seen. Left chest wall battery device is also noted. Lungs and pleura: Lungs are clear. No pleural effusions or pneumothorax. Mediastinum: Mediastinal contours appear normal. Heart size is enlarged. Bones and chest wall: No suspicious bony lesions. Overlying soft tissues appear unremarkable. IMPRESSION: No acute cardiopulmonary pathology. Dictated by: Tha James M.D. on 06/01/2024 at 14:35 Approved by: Tha James M.D. on 06/01/2024 at 14:36 ECG Data Attestation: I personally reviewed and interpreted this ECG as follows: Interpretation: Atrial fibrillation with ventricular rate 82, no obvious ST segment elevation or depression changes. QRS 102, QTC 439. MDM Narrative Medical decision making narrative: 78-year-old female with history of chronic warfarin anticoagulation due to remote aortic valve mechanical replacement, history of remote femur fracture repair ORIF intramedullary jessica and screws 1996 [facility], had ground level fall with hip pain and negative imaging 05/11/2024, twisting like injury going to the bathroom 2 weeks ago, persisting right hip pain since that twisting injury. X-ray sent from clinic of the right hip and pelvis as well as the femur suspicious for right-sided subcapital impacted fracture, noting intramedullary jessica and interlocking screws femoral shaft. Referred for further evaluation. Patient also has headache, since her fall 05/11/2024, takes warfarin, CT head ordered at triage as well. CT pelvis ordered. X-rays done from clinic within the system here. X-ray right foot negative. X-ray right hip with pelvis and knee x-ray series, suspicious for mildly impacted and displaced right subcapital hip fracture, intramedullary jessica in inferior locking screws noted, more proximal of the interlocking screws of the distal femoral shaft broken. CT head no acute changes. See radiology report. CT pelvis noncontrast study. Impressions: ?Right subcapital hip fracture. Intramedullary jessica and interlocking screws in place in the femoral shaft. The more proximal screw in the distal shaft is broken.? See radiology report 1410, case discussed with local Orthopedic surgery Dr. Fong who agrees with need for transfer to higher level of care for acute subcapital femur fracture in ipsilateral femur with prior ORIF 1440, case discussed with [facility], await call back from their Orthopedic surgery. 1600, accepted ED-to-ED [facility] ground transport Discharge Plan Departure Patient Disposition: General Acute Hospital Clinical Impression: Femur fracture, right, Chronic anticoagulation, History of hip surgery, History of aortic valve replacement, Atrial fibrillation Prescriptions: No Action aspirin 81 MG tablet,delayed release (DR/EC) 81 mg PO QDAY Qty: 0 metoprolol succinate 50 mg tablet extended release 24 hr 50 mg PO QPM Qty: 30 2RF omeprazole 40 mg capsule,delayed release(DR/EC) 40 mg PO DAILY Qty: 90 3RF fluoxetine 10 mg capsule 10 mg PO DAILY Qty: 90 1RF warfarin 7.5 mg tablet See Rx Instructions .ROUTE .COMPLEX Qty: 120 3RF Protocol: Dose Management Condition: Wednesday Dose/Route: 7.5 mg Instruction: 1 x 7.5 mg tablet Condition: Wednesday Dose/Route: Hold Instruction: No doses Condition: Wednesday Dose/Route: 7.5 mg Instruction: 1 x 7.5 mg tablet Condition: Wednesday Dose/Route: 7.5 mg Instruction: 1 x 7.5 mg tablet Condition: Dose/Route: 7.5 mg Instruction: 1 x 7.5 mg tablet Condition: Wednesday Dose/Route: 7.5 mg Instruction: 1 x 7.5 mg tablet Condition: Wednesday Dose/Route: 7.5 mg Instruction: 1 x 7.5 mg tablet Protocol Text: Adjustment Start Date: Wednesday05/29/24 INR Value: 4.3 INR Date: 05/29/24 Recheck Date: 06/05/24 Dose Instruction: TAKE 1 TABLET BY MOUTH 5 DAYS PER WEEK, AND 1 AND 1/2 TABLETS (11.25MG) ON WEDNESDAY AND FRIDAYS Rx Instructions: take 7.5mg daily or as directed estradiol 0.01 % (0.1 mg/gram) cream 0.25 g vaginal 2XW Qty: 42.5 3RF Rx Instructions: Apply thin layer around urethra opening ezetimibe 10 mg tablet 10 mg PO DAILY hydrocodone-acetaminophen 5-325 mg tablet 0.5 tab PO Q6H PRN (Reason: breakthrough giang) Qty: 7 0RF ondansetron 4 mg tablet,disintegrating 4 mg PO Q8H PRN (Reason: nausea and vomiting) Qty: 20 0RF Referrals: Krissy Ramirez DO [Primary Care Provider] -
--- NOTE | 2024-06-01 12:28 | PC.NURSE ---
Patient was informed the nurse that she has been having intermittent headaches on the side of her head where she had fallen and hit her head. Her bp was elevated and she is on thinners. MD was notified of finding. Ordered repeat head CT wo contrast.
[2024-06-01 12:36] LABS: Add Manual Diff / Slide Review NO; Basophils Absolute Auto 100 /uL (0-100); Basophils Percent Auto 0.9 % (0-2); Eosinophils Absolute Auto 200 /uL (0-450); Eosinophils Percent Auto 3.2 % (2-4); Hematocrit 41.7 % (36-46); Hemoglobin 13.9 g/dL (12.0-16.0); Lymphocytes Absolute Auto 1100 /uL (1100-4500); Lymphocytes Percent Auto 14.3 % (25-40); Mean Corpuscular HGB Conc 33.4 % (30-36); Mean Corpuscular Volume 92.9 fL (80-100); Monocytes Absolute Auto 700 /uL (0-900); Monocytes Percent Auto 8.9 % (3-14); Neutrophils Absolute Auto 5600 /uL (1500-7000); Neutrophils Percent Auto 72.7 % (50-75); Platelet Count 266 X10^3/uL (150-400); Red Blood Cell Count 4.49 X10^6/uL (4.0-5.2); Red Cell Distribution Width 13.7 % (11.6-14.8); White Blood Cell Count 7.7 X10^3/uL (4.5-11.0)
[2024-06-01 12:43] LABS: INR 3.5 (0.9-1.3); Prothrombin Time 38.2 SECONDS (9.4-12.5)
[2024-06-01 12:49] LABS: Alanine Aminotransferase 17 IU/L (<35); Albumin 4.4 g/dL (3.5-5.0); Albumin Globulin Ratio 1.4 (1.0-2.8); Alkaline Phosphatase 125 U/L (38-126); Aspartate Aminotransferase 29 IU/L (14-36); BUN Creatinine Ratio 21.5 (6-22); Bilirubin Total 0.7 mg/dL (0.2-1.3); Blood Urea Nitrogen 14 mg/dL (7-17); Calcium 9.9 mg/dL (8.4-10.2); Carbon Dioxide 26 mmol/L (22-32); Chloride 104 mmol/L (98-107); Estimated Glomerular Filt Rate > 60 mL/min (>60); Globulin 3.1 g/dL (1.7-4.1); Glucose 97 mg/dL (80-110); HEMOLYSIS < 15 (0-50); Potassium 4.4 mmol/L (3.4-5.1); Sodium 138 mmol/L (137-145); Total Protein 7.5 g/dL (6.3-8.2)
[2024-06-01] MEDS: HYDROMORPHONE 0.5 MG INJ IV ×2 (13:41→17:50)
--- NOTE | 2024-06-01 14:16 | EKG_ITS ---
[facility] [address] [place] [address] Test Date: 2024-06-01 Pat Name: Arleen Amador Department: Room: Gender: Female Surveillance Supervisor: : 1945 Requested By: Order Number: [id number] Reading MD: Scar Rosenberg MD Measurements Intervals [place] Rate: 82 P: AR: QRS: 59 QRSD: 102 T: 44 QT: 376 QTc: 439 Interpretive Statements Atrial fibrillation (new) Electronically Signed On 06-02-2024 6:42:09 PDT by Scar Rosenberg MD
--- NOTE | 2024-06-01 14:16 | DI.RAD.S_ITS ---
PROCEDURE: XR CHEST 1V INDICATIONS: pre-op, hip fx TECHNIQUE: One view of the chest was acquired. COMPARISON: [facility], , XR CHEST 1V, 02/08/2023, 11:04. FINDINGS: Surgical changes and devices: Postsurgical changes from prior right shoulder reverse arthroplasty. Median sternotomy wires and prosthetic heart valve are seen. Left chest wall battery device is also noted. Lungs and pleura: Lungs are clear. No pleural effusions or pneumothorax. Mediastinum: Mediastinal contours appear normal. Heart size is enlarged. Bones and chest wall: No suspicious bony lesions. Overlying soft tissues appear unremarkable. IMPRESSION: No acute cardiopulmonary pathology. Dictated by: Tha James M.D. on 06/01/2024 at 14:35 Approved by: Tha James M.D. on 06/01/2024 at 14:36
== END 2024-06-01 18:31 | disposition short-term general hospital (02) ==
PROVIDERS: Emergency Provider Emergency Medicine; PCP Family Medicine
DX: S72.011A Unspecified intracapsular fracture of right femur, initial encounter for closed fracture (principal); M25.571 Pain in right ankle and joints of right foot; M25.511 Pain in right shoulder; W18.30XA Fall on same level, unspecified, initial encounter; I48.91 Unspecified atrial fibrillation; R51.9 Headache, unspecified; Z95.2 Presence of prosthetic heart valve; Z79.01 Long term (current) use of anticoagulants; T84.318A Breakdown (mechanical) of other bone devices, implants and grafts, initial encounter; M25.561 Pain in right knee; R29.898 Other symptoms and signs involving the musculoskeletal system; M79.671 Pain in right foot; M25.551 Pain in right hip; M79.604 Pain in right leg; Z96.651 Presence of right artificial knee joint
CPT/HCPCS: 36415; 70450; 71045; 72192; 73502; 73552; 73560; 73620; 80053; 85025; 85610; 93005; 93010; 96374; 96376; 99284; J1171

== ENCOUNTER → 2024-06-20 10:51 | Outpatient (ROUT) | payer MEDICARE, SELFPAY ==
[2022-06-04 15:10] VITALS: BMI 31.6
== END ==
PROVIDERS: PCP Family Medicine; Visit Provider Hospitalist
DX: B99.8 Other infectious disease (principal)
CPT/HCPCS: 87070; 87077; 87147; 87186; 87205

== ENCOUNTER 2024-07-17 13:06 | Emergency (ER) | payer MEDICARE, SELFPAY ==
[2022-06-04 15:10] VITALS: BMI 31.6
[2024-07-17 13:14] VITALS: BP 143/67; PULSE 113; RESP 18; TEMP 36.3; O2SAT 95; BMI 28.8
[2024-07-17 15:47] VITALS: BP 122/61; PULSE 102; RESP 17; O2SAT 96
[2024-07-17 16:31] LABS: Add Manual Diff / Slide Review NO; Basophils Absolute Auto 0 /uL (0-100); Basophils Percent Auto 0.4 % (0-2); Eosinophils Absolute Auto 0 /uL (0-450); Eosinophils Percent Auto 0.3 % (2-4); Hematocrit 37.4 % (36-46); Hemoglobin 12.4 g/dL (12.0-16.0); Lymphocytes Absolute Auto 500 /uL (1100-4500); Mean Corpuscular HGB Conc 33.1 % (30-36); Mean Corpuscular Hemoglobin 31.4 PG (26-34); Monocytes Absolute Auto 1100 /uL (0-900); Monocytes Percent Auto 11.9 % (3-14); Neutrophils Absolute Auto 7800 /uL (1500-7000); Neutrophils Percent Auto 82.4 % (50-75); Platelet Count 291 X10^3/uL (150-400); Red Blood Cell Count 3.94 X10^6/uL (4.0-5.2); Red Cell Distribution Width 16.1 % (11.6-14.8); White Blood Cell Count 9.5 X10^3/uL (4.5-11.0)
[2024-07-17 16:38] LABS: INR 3.9 (0.9-1.3); Prothrombin Time 42.7 SECONDS (9.4-12.5)
[2024-07-17] MEDS: OXYCODONE/ACETAMINOPHEN 5/325 TABLET 1 TAB PO (16:40)
[2024-07-17 16:41] LABS: PTT Partial Thromboplastin Tim 64 SECONDS (25.1-36.5)
[2024-07-17 16:43] LABS: Lactate (Lactic Acid) 1.2 mmol/L (0.7-2.1)
[2024-07-17 16:44] LABS: Alanine Aminotransferase 20 IU/L (<35); Albumin 4.4 g/dL (3.5-5.0); Albumin Globulin Ratio 1.3 (1.0-2.8); Alkaline Phosphatase 121 U/L (38-126); Aspartate Aminotransferase 30 IU/L (14-36); BUN Creatinine Ratio 14.5 (6-22); Bilirubin Total 1.1 mg/dL (0.2-1.3); Blood Urea Nitrogen 8 mg/dL (7-17); Calcium 10.2 mg/dL (8.4-10.2); Carbon Dioxide 26 mmol/L (22-32); Chloride 94 mmol/L (98-107); Estimated Glomerular Filt Rate > 60 mL/min (>60); Globulin 3.5 g/dL (1.7-4.1); Glucose 112 mg/dL (70-99); HEMOLYSIS 22 (0-50); Potassium 3.2 mmol/L (3.4-5.1); Sodium 132 mmol/L (137-145); Total Protein 7.9 g/dL (6.3-8.2)
[2024-07-17 16:54] LABS: Erythrocyte Sedimentation Rate 73 MM/HR (0-20)
--- NOTE | 2024-07-17 16:57 | ED_ITS ---
HPI - Wound/Laceration <Eneida Sutherland PA-C - Last Filed: 07/17/24 19:02> General Chief Complaint: Wound/Laceration Stated Complaint: Infected right knee since june 09 Time Seen by Provider: 07/17/24 15:54 Source: patient History of Present Illness HPI narrative: 79-year-old female presents to the ED with right lateral knee wound that appears infected. Patient had right-sided knee surgery on June 05, 2024 which was a revision from a prior femur fracture in 1996. Patient was in [facility] after the surgery, during which time she started experiencing pain at the incision site. Patient was released from [facility] on July 13. Patient's symptoms started about July 10. Patient also endorses erythema, pus. No fever, chills. Patient is able to bend and extend the knee. Patient states that while she was at [facility], she experienced and bout of food poisoning and diarrhea, which she believes might be the source of her infection. Surgery was performed by Dr. Sawyer with at [facility]. Patient presents at this ED since she says she has no way to get to [facility] from here. Related Data Home Medications Medication Instructions Recorded Confirmed aspirin 81 mg tablet,delayed 81 mg PO QDAY ##0 08/12/16 07/14/24 release ezetimibe 10 mg tablet 10 mg PO DAILY 06/15/23 07/14/24 acetaminophen 325 mg tablet 650 mg PO Q6H PRN 07/14/24 07/14/24 calcium carbonate (Calcium 600) 600 mg PO BID 07/14/24 07/14/24 cholecalciferol (vitamin D3) 25 25 mcg PO DAILY 07/14/24 07/14/24 mcg (1,000 unit) tablet hydromorphone 2 mg tablet 2 mg PO Q4H 07/14/24 07/14/24 Previous Rx's Medication Instructions Recorded warfarin 7.5 mg tablet See Rx Instructions .Route 07/20/23 .COMPLEX #120 tabs metoprolol succinate 50 mg 50 mg PO QPM #30 tabs 07/26/23 tablet,extended release 24 hr estradiol 0.01% (0.1 mg/gram) 0.25 g vaginal 2XW #42.5 grams 11/12/23 vaginal cream omeprazole 40 mg capsule,delayed 40 mg PO DAILY #90 caps 01/27/24 release fluoxetine 10 mg capsule 10 mg PO DAILY #90 caps 05/05/24 Allergies Allergy/AdvReac Type Severity Reaction Status Date / Time mometasone furoate Allergy Severe ANAPHYLAXIS Verified 07/17/24 13:14 [MOMETASONE FUROATE] ezetimibe [EZETIMIBE] AdvReac Severe Muscle Verified 07/17/24 13:14 pain, spasms nirmatrelvir AdvReac Severe loss of Verified 07/17/24 13:14 [From Paxlovid (EUA)] consciousness ritonavir AdvReac Severe loss of Verified 07/17/24 13:14 [From Paxlovid (EUA)] consciousness adhesive [ADHESIVE] AdvReac Mild LOCAL Verified 07/17/24 13:14 HIVES,BLISTERS codeine [CODEINE] AdvReac Mild HALLUCINATI Verified 07/17/24 13:14 ONS diclofenac [From VOLTAREN] AdvReac Mild HIVES Verified 07/17/24 13:14 gluten [GLUTEN] AdvReac Mild IMMEDIATE Verified 07/17/24 13:14 DIARRHEA latex [LATEX] AdvReac Mild HIVES,BLIST Verified 07/17/24 13:14 ERS simvastatin [SIMVASTATIN] AdvReac Mild MYALGIAS Verified 07/17/24 13:14 [id number] Reductase AdvReac Mild MYALGIAS Verified 07/17/24 13:14 Inhibitor [[id number] REDUCTASE INHIBITOR] Milk Containing Products AdvReac Unknown CRAMPING,DRINKS Verified 07/17/24 13:14 (Dairy) ALMOND [MILK CONTAINING PRODUCTS] MILK Review of Systems <Eneida Sutherland PA-C - Last Filed: 07/17/24 19:02> Constitutional Constitutional: Denies chills, Denies fatigue, Denies fever(s), Denies frequent falls, Denies lethargy and Denies weakness Eyes Eyes: Denies change in vision, Denies eye discharge, Denies irritation and Denies loss of vision ENT Ears, Nose, Mouth, and Throat: Denies change in voice, Denies dizziness, Denies neck pain, Denies sore throat and Denies throat swelling Cardiovascular Cardiovascular: Denies chest pain, Denies irregular heart rhythm, Denies lightheadedness, Denies palpitations, Denies dyspnea, Denies dyspnea on exertion and Denies orthopnea Respiratory Respiratory: Denies cough, Denies dyspnea, Denies dyspnea on exertion and Denies wheezing Gastrointestinal Gastrointestinal: Denies abdominal pain, Denies change in bowel habits, Denies diarrhea, Denies nausea and Denies vomiting Musculoskeletal Musculoskeletal: Denies neck pain and Denies numbness Integumentary/Breasts Skin/Breast: Denies pruritus, Denies erythema, Denies rash and Reports wounds Comments: R knee incision with erythema, pus, painful Neurologic Neurologic: Denies behavioral changes, Denies confusion, Denies dizziness, Denies frequent falls, Denies loss of vision, Denies numbness and Denies weakness Psychiatric Psychiatric: Denies anxiety, Denies behavioral changes, Denies confusion, Denies depression, Denies homicidal ideation and Denies suicidal ideation Endocrine Endocrine: Denies fatigue, Denies flushing and Denies palpitations Hematologic/Lymphatic Hematologic/Lymphatic: Denies easy bruising Allergic/Immunologic Allergic/Immunologic: Denies urticaria, Denies throat swelling and Denies wheezing Patient History <Eneida Sutherland PA-C - Last Filed: 07/17/24 19:02> Medical History (Updated 07/18/24 @ 02:52 by Scar Dueñas DO) Hand fracture, left (~01/27/23) Maxillary fracture, right side, sequela (~01/27/23) Nasal bone fracture (~01/27/23) Right rotator cuff tendonitis Hematuria Left knee injury (~10/23/22) Anticoagulation monitoring, INR range 2.5-3.5 COVID-19 virus infection (09/2021) MIHAI (obstructive sleep apnea) Aortic regurgitation Depression, major, recurrent Osteoporosis Allergy to casein Pulmonary hypertension Vision abnormalities Seasonal allergies Osteoarthritis (~1999) Depression (~1966) Anxiety (~1979) Osteopenia (~1997) Fracture (~2007) Foot pain (~2007) Carpal tunnel syndrome (~1987) Rheumatic fever (~1953) Chickenpox Measles (~1951) Mumps History of recurrent ear infection Urinary incontinence (~2002) IBS (irritable bowel syndrome) (~2014) GERD (gastroesophageal reflux disease) (~2008) Heavy menstrual period (~1994) Abnormal Pap smear of cervix Fibromyalgia Migraines (~1959) Sinus tachycardia Hypertension Hyperlipidemia Class 1 obesity (08/20/14) 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 Surgical History (Updated 06/16/24 @ 00:01 by ) S/P open reduction and internal fixation (ORIF) of fracture of medial condyle of right femur S/P right unicompartmental knee replacement Status post total shoulder arthroplasty Hx of bilateral cataract extraction Hx of plastic surgery S/P left unicompartmental knee replacement Hx of toe surgery Hx of tubal ligation Anesthesia H/O mitral valve replacement (01/16/09) Surgical procedure planned (~1996) Status post colonoscopy (~2006) Status post bunionectomy (~2010) Status post appendectomy (~1980) Family History Brother Age: 65 Hypertension High cholesterol Child Age: 53 Mental health problem Father High cholesterol Heart attack Social History household members: spouse alcohol intake: current substance use type: does not use alcohol intake frequency: a few times a month Exam <Eneida Sutherland PA-C - Last Filed: 07/17/24 19:02> Narrative Exam Narrative: Const General:?cooperative, healthy appearing and comfortable [facility] Head:?normal to inspection Ears:?hearing grossly normal bilaterally Nose:?external nose normal Face and sinus:?normal facial exam and sinuses nontender Mouth:?oral mucosae normal Throat:?posterior oropharynx normal Eyes General:?appearance normal, both eyes and all related structures Neck Neck:?normal visual inspection and no lymphadenopathy noted Resp Effort & Inspection:?normal respiratory effort Auscultation:?clear to auscultation bilaterally Cardio Rate:?regular rate Rhythm:?regular rhythm Musculoskeletal/integumentary Right lateral knee with incision status post surgery. Incision is erythematous, painful to touch, with purulence. Patient is able to then flex and extend. Neurovascularly intact. Neuro General:?patient alert, patient awake and patient oriented x3 Initial Vital Signs Initial Vital Signs: Vital Signs Temperature 97.4 F L 07/17/24 13:14 Pulse Rate 113 H 07/17/24 13:14 Respiratory Rate 18 07/17/24 13:14 Blood Pressure 143/67 H 07/17/24 13:14 Pulse Oximetry 95 07/17/24 13:14 Oxygen Delivery Method Room Air 07/17/24 13:14 <Scar Dueñas DO - Last Filed: 07/18/24 02:52> Initial Vital Signs Initial Vital Signs: Vital Signs Temperature 97.4 F L 07/17/24 13:14 Pulse Rate 113 H 07/17/24 13:14 Respiratory Rate 18 07/17/24 13:14 Blood Pressure 143/67 H 07/17/24 13:14 Pulse Oximetry 95 07/17/24 13:14 Oxygen Delivery Method Room Air 07/17/24 13:14 Course <Eneida Sutherland PA-C - Last Filed: 07/17/24 19:02> Orders Ordered: Discontinued Medications Vancomycin HCl 1,000 mg/ (Sodium Chloride) 250 mls @ 250 mls/hr IV NOW ONE Stop: 07/17/24 20:27 Last Infusion: 07/17/24 22:29 Dose: Infused Documented By: Admin: 07/17/24 21:28 Dose: 250 mls/hr Documented By: MIKE Ceftriaxone Sodium 1,000 mg/ (Sodium Chloride) 100 mls @ 200 mls/hr IV NOW ONE Stop: 07/17/24 20:27 Last Infusion: 07/17/24 21:28 Dose: Infused Documented By: Admin: 07/17/24 20:43 Dose: 200 mls/hr Documented By: MIKE Oxycodone/Acetaminophen (Oxycodone/Acetaminophen 5/325 Tablet) 1 tab PO NOW ONE Stop: 07/17/24 16:32 Last Admin: 07/17/24 16:40 Dose: 1 tab Documented By: CYNTHIA Vital Signs Vital signs: Vital Signs - 8 hr 07/17/24 22:20 Pulse Rate 100 H Respiratory Rate 18 Blood Pressure 157/72 H Pulse Oximetry 98 Oxygen Delivery Method Room Air <Scar Dueñas DO - Last Filed: 07/18/24 02:52> Orders Ordered: Discontinued Medications Vancomycin HCl 1,000 mg/ (Sodium Chloride) 250 mls @ 250 mls/hr IV NOW ONE Stop: 07/17/24 20:27 Last Infusion: 07/17/24 22:29 Dose: Infused Documented By: Admin: 07/17/24 21:28 Dose: 250 mls/hr Documented By: MIKE Ceftriaxone Sodium 1,000 mg/ (Sodium Chloride) 100 mls @ 200 mls/hr IV NOW ONE Stop: 07/17/24 20:27 Last Infusion: 07/17/24 21:28 Dose: Infused Documented By: Admin: 07/17/24 20:43 Dose: 200 mls/hr Documented By: MIKE Oxycodone/Acetaminophen (Oxycodone/Acetaminophen 5/325 Tablet) 1 tab PO NOW ONE Stop: 07/17/24 16:32 Last Admin: 07/17/24 16:40 Dose: 1 tab Documented By: CYNTHIA Vital Signs Vital signs: Vital Signs - 8 hr 07/17/24 22:20 Pulse Rate 100 H Respiratory Rate 18 Blood Pressure 157/72 H Pulse Oximetry 98 Oxygen Delivery Method Room Air MDM - Wound/Laceration <Eneida Sutherland PA-C - Last Filed: 07/17/24 19:02> Lab Data 07/17/24 16:20 07/17/24 16:20 Labs: Lab Results 07/17/24 Range/Units 16:20 WBC 9.5 (4.5-11.0) X10^3/uL RBC 3.94 L (4.0-5.2) X10^6/uL Hgb 12.4 (12.0-16.0) g/dL Hct 37.4 (36-46) % MCV 95.0 (80-100) fL MCH 31.4 (26-34) PG MCHC 33.1 (30-36) % RDW 16.1 H (11.6-14.8) % Plt Count 291 (150-400) X10^3/uL Neut % (Auto) 82.4 H (50-75) % Lymph % (Auto) 5.0 L (25-40) % Petroleum % (Auto) 11.9 (3-14) % Eos % (Auto) 0.3 L (2-4) % Baso % (Auto) 0.4 (0-2) % Neut # (Auto) 7800 H (7648-3197) /uL Lymph # (Auto) 500 L (9393-6288) /uL Petroleum # (Auto) 1100 H (0-900) /uL Eos # (Auto) 0 (0-450) /uL Baso # (Auto) 0 (0-100) /uL ESR 73 H (0-20) MM/HR PT 42.7 H (9.4-12.5) SECONDS INR 3.9 H (0.9-1.3) APTT 64 H (25.1-36.5) SECONDS Sodium 132 L (137-145) mmol/L Potassium 3.2 L (3.4-5.1) mmol/L Chloride 94 L (98-107) mmol/L Carbon Dioxide 26 (22-32) mmol/L BUN 8 (7-17) mg/dL Creatinine 0.55 (0.52-1.04) mg/dL Estimated GFR > 60 (>60) mL/min BUN/Creatinine Ratio 14.5 (6-22) Glucose 112 H (70-99) mg/dL Lactate 1.2 (0.7-2.1) mmol/L Calcium 10.2 (8.4-10.2) mg/dL Total Bilirubin 1.1 (0.2-1.3) mg/dL AST 30 (14-36) IU/L ALT 20 (<35) IU/L Alkaline Phosphatase 121 (38-126) U/L C-Reactive Protein 51.2 H (<1.0) mg/dL Total Protein 7.9 (6.3-8.2) g/dL Albumin 4.4 (3.5-5.0) g/dL Globulin 3.5 (1.7-4.1) g/dL Albumin/Globulin Ratio 1.3 (1.0-2.8) MDM Narrative Medical decision making narrative: 79-year-old female presents to the ED with right lateral knee wound that appears infected. Concern for postop infection at the incision site. Will obtain labs, ESR, CRP, wound culture, blood cultures. Patient given a dose of Percocet for pain control. Will consult patient's orthopedic surgeon Dr. Sawyer. Will reassess. Photo sent to Dr. Sawyer per his request. Patient signed our to Dr. Dueñas at this time. <Scar Dueñas, DO - Last Filed: 07/18/24 02:52> Lab Data Labs: Lab Results 07/17/24 Range/Units 16:20 WBC 9.5 (4.5-11.0) X10^3/uL RBC 3.94 L (4.0-5.2) X10^6/uL Hgb 12.4 (12.0-16.0) g/dL Hct 37.4 (36-46) % MCV 95.0 (80-100) fL MCH 31.4 (26-34) PG MCHC 33.1 (30-36) % RDW 16.1 H (11.6-14.8) % Plt Count 291 (150-400) X10^3/uL Neut % (Auto) 82.4 H (50-75) % Lymph % (Auto) 5.0 L (25-40) % Petroleum % (Auto) 11.9 (3-14) % Eos % (Auto) 0.3 L (2-4) % Baso % (Auto) 0.4 (0-2) % Neut # (Auto) 7800 H (4358-3526) /uL Lymph # (Auto) 500 L (7376-9002) /uL Petroleum # (Auto) 1100 H (0-900) /uL Eos # (Auto) 0 (0-450) /uL Baso # (Auto) 0 (0-100) /uL ESR 73 H (0-20) MM/HR PT 42.7 H (9.4-12.5) SECONDS INR 3.9 H (0.9-1.3) APTT 64 H (25.1-36.5) SECONDS Sodium 132 L (137-145) mmol/L Potassium 3.2 L (3.4-5.1) mmol/L Chloride 94 L (98-107) mmol/L Carbon Dioxide 26 (22-32) mmol/L BUN 8 (7-17) mg/dL Creatinine 0.55 (0.52-1.04) mg/dL Estimated GFR > 60 (>60) mL/min BUN/Creatinine Ratio 14.5 (6-22) Glucose 112 H (70-99) mg/dL Lactate 1.2 (0.7-2.1) mmol/L Calcium 10.2 (8.4-10.2) mg/dL Total Bilirubin 1.1 (0.2-1.3) mg/dL AST 30 (14-36) IU/L ALT 20 (<35) IU/L Alkaline Phosphatase 121 (38-126) U/L C-Reactive Protein 51.2 H (<1.0) mg/dL Total Protein 7.9 (6.3-8.2) g/dL Albumin 4.4 (3.5-5.0) g/dL Globulin 3.5 (1.7-4.1) g/dL Albumin/Globulin Ratio 1.3 (1.0-2.8) MDM Narrative Medical decision making narrative: 79-year-old female presents to the ED with right lateral knee wound that appears infected. Concern for postop infection at the incision site. Will obtain labs, ESR, CRP, wound culture, blood cultures. Patient given a dose of Percocet for pain control. Will consult patient's orthopedic surgeon Dr. Sawyer. Will reassess. Photo sent to Dr. Sawyer per his request. Patient signed our to Dr. Dueñas at this time. Patient is signed out to me by tere PERALTA pending final disposition. Case discussed with Dr. Leblanc hospitalist who has graciously accepted patient for inpatient admission with Dr. Sawyer being consult on the case. Cultures were obtained and was advised to start on vancomycin and ceftriaxone here. Discharge Plan Departure Patient Disposition: [facility] Clinical Impression: Postoperative cellulitis of surgical wound Prescriptions: No Action aspirin 81 MG tablet,delayed release (DR/EC) 81 mg PO QDAY Qty: 0 metoprolol succinate 50 mg tablet extended release 24 hr 50 mg PO QPM Qty: 30 2RF Hold Instructions: patient taking, but not on d/c summary omeprazole 40 mg capsule,delayed release(DR/EC) 40 mg PO DAILY Qty: 90 3RF fluoxetine 10 mg capsule 10 mg PO DAILY Qty: 90 1RF warfarin 7.5 mg tablet See Rx Instructions .ROUTE .COMPLEX Qty: 120 3RF Protocol: Dose Management Condition: Wednesday Dose/Route: 7.5 mg Instruction: 1 x 7.5 mg tablet Condition: Wednesday Dose/Route: Hold Instruction: No doses Condition: Wednesday Dose/Route: 7.5 mg Instruction: 1 x 7.5 mg tablet Condition: Wednesday Dose/Route: 7.5 mg Instruction: 1 x 7.5 mg tablet Condition: Dose/Route: 7.5 mg Instruction: 1 x 7.5 mg tablet Condition: Wednesday Dose/Route: 7.5 mg Instruction: 1 x 7.5 mg tablet Condition: Wednesday Dose/Route: 7.5 mg Instruction: 1 x 7.5 mg tablet Protocol Text: Adjustment Start Date: Wednesday05/29/24 INR Value: 4.3 INR Date: 05/29/24 Recheck Date: 06/05/24 Dose Instruction: TAKE 1 TABLET BY MOUTH 5 DAYS PER WEEK, AND 1 AND 1/2 TABLETS (11.25MG) ON WEDNESDAY AND FRIDAYS Rx Instructions: take 7.5mg daily or as directed estradiol 0.01 % (0.1 mg/gram) cream 0.25 g vaginal 2XW Qty: 42.5 3RF Rx Instructions: Apply thin layer around urethra opening ezetimibe 10 mg tablet 10 mg PO DAILY acetaminophen 325 mg tablet 650 mg PO Q6H PRN calcium carbonate [Calcium 600] 600 mg calcium (1,500 mg) tablet 600 mg PO BID cholecalciferol (vitamin D3) 25 mcg (1,000 unit) tablet 25 mcg PO DAILY hydromorphone 2 mg tablet 2 mg PO Q4H Rx Instructions: take 2 mg by mouth every 4 hours as needed for pain rated 4-6. Take 4 mg by mouth every 4 hours as needed for pain rated 7-10. Referrals: Krissy Ramirez DO [Primary Care Provider] -
[2024-07-17 17:39] LABS: C-Reactive Protein Quant 51.2 mg/dL (<1.0)
[2024-07-17 18:25] VITALS: BP 130/66; PULSE 95; RESP 18; O2SAT 97
[2024-07-17] MEDS: cefTRIAXone 1,000 MG in SODIUM CHLORIDE 0.9% 100 ML 200 MG IV (20:43)
[2024-07-17] MEDS: VANCOMYCIN 1,000 MG in SODIUM CHLORIDE 0.9% 250 ML 250 MG IV (21:28)
[2024-07-17 22:20] VITALS: BP 157/72; PULSE 100; RESP 18; O2SAT 98
== END 2024-07-17 22:40 | disposition short-term general hospital (02) ==
PROVIDERS: Student in an Organized Health Care Education/Training Program; Emergency Provider Family Medicine; PCP Family Medicine
DX: T81.49XA Infection following a procedure, other surgical site, initial encounter (principal)
CPT/HCPCS: 36415; 80053; 83605; 85025; 85610; 85651; 85730; 86140; 87040; 87070; 87075; 87077; 87147; 87186; 87205; 96365; 96367; 99284; J0696

== ENCOUNTER → 2024-08-01 13:59 | Outpatient (CLI) | payer MEDICARE, SELFPAY ==
[2022-06-04 15:10] VITALS: BMI 31.6
== END ==
PROVIDERS: PCP Family Medicine; Referring Provider Family Medicine; Visit Provider Surgery
DX: T81.40XA Infection following a procedure, unspecified, initial encounter (principal); L53.8 Other specified erythematous conditions; Z87.81 Personal history of (healed) traumatic fracture; Z86.14 Personal history of Methicillin resistant Staphylococcus aureus infection; Z86.73 Personal history of transient ischemic attack (TIA), and cerebral infarction without residual deficits; I10 Essential (primary) hypertension; M81.0 Age-related osteoporosis without current pathological fracture; I35.1 Nonrheumatic aortic (valve) insufficiency; F32.9 Major depressive disorder, single episode, unspecified; I27.20 Pulmonary hypertension, unspecified; M79.7 Fibromyalgia; E78.5 Hyperlipidemia, unspecified; F41.1 Generalized anxiety disorder
CPT/HCPCS: 99203; 99213

== ENCOUNTER → 2024-08-08 06:55 | Outpatient (CLI) | payer MEDICARE, SELFPAY ==
[2022-06-04 15:10] VITALS: BMI 31.6
[2024-08-08 07:37] LABS: Add Manual Diff / Slide Review NO; Basophils Absolute Auto 100 /uL (0-100); Basophils Percent Auto 1.1 % (0-2); Eosinophils Absolute Auto 500 /uL (0-450); Eosinophils Percent Auto 10.2 % (2-4); Hematocrit 34.6 % (36-46); Hemoglobin 11.3 g/dL (12.0-16.0); Lymphocytes Absolute Auto 700 /uL (1100-4500); Mean Corpuscular HGB Conc 32.7 % (30-36); Mean Corpuscular Hemoglobin 30.2 PG (26-34); Mean Corpuscular Volume 92.4 fL (80-100); Monocytes Absolute Auto 600 /uL (0-900); Monocytes Percent Auto 11.8 % (3-14); Neutrophils Absolute Auto 3100 /uL (1500-7000); Neutrophils Percent Auto 61.9 % (50-75); Platelet Count 404 X10^3/uL (150-400); Red Blood Cell Count 3.75 X10^6/uL (4.0-5.2); Red Cell Distribution Width 16.4 % (11.6-14.8)
[2024-08-08 08:14] LABS: Alanine Aminotransferase 15 IU/L (<35); Albumin Globulin Ratio 1.3 (1.0-2.8); Alkaline Phosphatase 99 U/L (38-126); Aspartate Aminotransferase 25 IU/L (14-36); BUN Creatinine Ratio 21.4 (6-22); Bilirubin Total 0.5 mg/dL (0.2-1.3); Blood Urea Nitrogen 12 mg/dL (7-17); Calcium 9.6 mg/dL (8.4-10.2); Carbon Dioxide 24 mmol/L (22-32); Chloride 105 mmol/L (98-107); Estimated Glomerular Filt Rate > 60 mL/min (>60); Globulin 3.1 g/dL (1.7-4.1); Glucose 100 mg/dL (70-99); HEMOLYSIS < 15 (0-50); Potassium 4.4 mmol/L (3.4-5.1); Sodium 138 mmol/L (137-145); Total Protein 7.1 g/dL (6.3-8.2)
== END ==
PROVIDERS: PCP Family Medicine; Referring Provider Internal Medicine Infectious Disease; Visit Provider Internal Medicine Infectious Disease
DX: T84.59XD Infection and inflammatory reaction due to other internal joint prosthesis, subsequent encounter (principal); Z96.649 Presence of unspecified artificial hip joint
CPT/HCPCS: 36415; 80053; 85025

== ENCOUNTER → 2024-08-25 07:07 | Outpatient (CLI) | payer MEDICARE, SELFPAY ==
[2022-06-04 15:10] VITALS: BMI 31.6
[2024-08-25 08:02] LABS: Hematocrit 35.7 % (36-46); Hemoglobin 11.7 g/dL (12.0-16.0); Mean Corpuscular HGB Conc 32.8 % (30-36); Mean Corpuscular Hemoglobin 29.7 PG (26-34); Mean Corpuscular Volume 90.5 fL (80-100); Platelet Count 251 X10^3/uL (150-400); Red Blood Cell Count 3.94 X10^6/uL (4.0-5.2); Red Cell Distribution Width 15.6 % (11.6-14.8); White Blood Cell Count 4.7 X10^3/uL (4.5-11.0)
[2024-08-25 08:32] LABS: Prothrombin Time 32.9 SECONDS (9.4-12.5)
[2024-08-25 09:09] LABS: BUN Creatinine Ratio 19.6 (6-22); Blood Urea Nitrogen 11 mg/dL (7-17); Calcium 9.4 mg/dL (8.4-10.2); Carbon Dioxide 26 mmol/L (22-32); Chloride 105 mmol/L (98-107); Cholesterol 186 mg/dL (140-199); Estimated Glomerular Filt Rate > 60 mL/min (>60); Glucose 88 mg/dL (70-99); HDL Cholesterol 54 mg/dL (40-60); HEMOLYSIS < 15 (0-50); LDL Cholesterol Calculated 109 mg/dL (<100); Potassium 4.1 mmol/L (3.4-5.1); Sodium 138 mmol/L (137-145); Triglycerides 113 mg/dL (35-150)
== END ==
PROVIDERS: PCP Family Medicine; Referring Provider Internal Medicine Cardiovascular Disease; Visit Provider Internal Medicine Cardiovascular Disease
DX: E78.5 Hyperlipidemia, unspecified (principal); I27.20 Pulmonary hypertension, unspecified; Z79.01 Long term (current) use of anticoagulants
CPT/HCPCS: 36415; 80048; 80061; 85027; 85610

== ENCOUNTER → 2024-09-06 07:21 | Outpatient (CLI) | payer MEDICARE, SELFPAY ==
[2022-06-04 15:10] VITALS: BMI 31.6
[2024-09-06 08:06] LABS: Add Manual Diff / Slide Review NO; Basophils Absolute Auto 0 /uL (0-100); Basophils Percent Auto 0.5 % (0-2); Eosinophils Absolute Auto 200 /uL (0-450); Eosinophils Percent Auto 4.1 % (2-4); Hematocrit 34.4 % (36-46); Hemoglobin 11.5 g/dL (12.0-16.0); Lymphocytes Absolute Auto 1200 /uL (1100-4500); Lymphocytes Percent Auto 27.2 % (25-40); Mean Corpuscular HGB Conc 33.6 % (30-36); Mean Corpuscular Hemoglobin 29.8 PG (26-34); Mean Corpuscular Volume 88.6 fL (80-100); Monocytes Absolute Auto 500 /uL (0-900); Neutrophils Absolute Auto 2500 /uL (1500-7000); Neutrophils Percent Auto 56.2 % (50-75); Platelet Count 268 X10^3/uL (150-400); Red Blood Cell Count 3.88 X10^6/uL (4.0-5.2); Red Cell Distribution Width 16.1 % (11.6-14.8); White Blood Cell Count 4.4 X10^3/uL (4.5-11.0)
[2024-09-06 08:42] LABS: Alanine Aminotransferase 15 IU/L (<35); Albumin 3.9 g/dL (3.5-5.0); Albumin Globulin Ratio 1.4 (1.0-2.8); Alkaline Phosphatase 109 U/L (38-126); Aspartate Aminotransferase 23 IU/L (14-36); Bilirubin Total 0.6 mg/dL (0.2-1.3); Blood Urea Nitrogen 12 mg/dL (7-17); Calcium 9.6 mg/dL (8.4-10.2); Carbon Dioxide 25 mmol/L (22-32); Chloride 105 mmol/L (98-107); Estimated Glomerular Filt Rate > 60 mL/min (>60); Globulin 2.8 g/dL (1.7-4.1); Glucose 95 mg/dL (70-99); HEMOLYSIS < 15 (0-50); Potassium 4.4 mmol/L (3.4-5.1); Sodium 136 mmol/L (137-145); Total Protein 6.7 g/dL (6.3-8.2)
== END ==
PROVIDERS: PCP Family Medicine; Referring Provider Internal Medicine Infectious Disease; Visit Provider Internal Medicine Infectious Disease
DX: T84.59XD Infection and inflammatory reaction due to other internal joint prosthesis, subsequent encounter (principal); Z96.649 Presence of unspecified artificial hip joint
CPT/HCPCS: 36415; 80053; 85025; 86140

== ENCOUNTER → 2024-10-02 09:33 | Outpatient (CLI) | payer MEDICARE, SELFPAY ==
[2022-06-04 15:10] VITALS: BMI 31.6
[2024-10-02 10:04] LABS: Add Manual Diff / Slide Review NO; Hematocrit 37.1 % (36-46); Hemoglobin 12.1 g/dL (12.0-16.0); Lymphocytes Absolute Auto 1100 /uL (1100-4500); Mean Corpuscular HGB Conc 32.7 % (30-36); Mean Corpuscular Hemoglobin 28.8 PG (26-34); Mean Corpuscular Volume 88.2 fL (80-100); Platelet Count 252 X10^3/uL (150-400)
[2024-10-02 10:12] LABS: INR 2.5 (0.9-1.3); Prothrombin Time 27.7 SECONDS (9.4-12.5)
[2024-10-02 10:31] LABS: Alanine Aminotransferase 16 IU/L (<35); Albumin 4.2 g/dL (3.5-5.0); Albumin Globulin Ratio 1.4 (1.0-2.8); Alkaline Phosphatase 126 U/L (38-126); Blood Urea Nitrogen 13 mg/dL (7-17); Calcium 9.7 mg/dL (8.4-10.2); Carbon Dioxide 24 mmol/L (22-32); Chloride 103 mmol/L (98-107); Estimated Glomerular Filt Rate > 60 mL/min (>60); Globulin 2.9 g/dL (1.7-4.1); Glucose 92 mg/dL (70-99); HEMOLYSIS 18 (0-50); Potassium 4.6 mmol/L (3.4-5.1); Sodium 135 mmol/L (137-145); Total Protein 7.1 g/dL (6.3-8.2)
== END ==
PROVIDERS: PCP Family Medicine; Referring Provider Internal Medicine Infectious Disease; Visit Provider Family Medicine
DX: T84.59XD Infection and inflammatory reaction due to other internal joint prosthesis, subsequent encounter (principal); Z79.01 Long term (current) use of anticoagulants; Z96.649 Presence of unspecified artificial hip joint
CPT/HCPCS: 36415; 80053; 85025; 85610; 86140

== ENCOUNTER → 2024-10-16 10:12 | Outpatient (CLI) | payer MEDICARE, SELFPAY ==
[2022-06-04 15:10] VITALS: BMI 31.6
--- NOTE | 2024-10-16 10:12 | DI.US.S_ITS ---
PROCEDURE: US PERIPH VENOUS LOW EXTREM RT INDICATIONS: Right lower leg swelling TECHNIQUE: Real-time imaging, as well as color and pulse Doppler interrogation, were performed of the lower extremity deep veins from the inguinal ligament to the popliteal fossa, with documentation of the visualized calf veins. COMPARISON: None. FINDINGS: The common femoral, femoral, popliteal, and the visualized calf veins are normally compressible, and free of intraluminal thrombus. Color and pulse Doppler demonstrate normal phasic intraluminal flow. There is normal augmentation response to distal compression maneuver. Small prepatellar fluid collection, likely posttraumatic. IMPRESSION: No findings of lower extremity deep venous thrombosis. Dictated by: Alonso Pennington M.D. on 10/16/2024 at 11:48 Approved by: Alonso Pennington M.D. on 10/16/2024 at 11:48
== END ==
PROVIDERS: PCP Family Medicine; Referring Provider Family Medicine; Visit Provider Family Medicine
DX: M79.89 Other specified soft tissue disorders (principal)
CPT/HCPCS: 93971

== ENCOUNTER → 2024-10-24 11:06 | Outpatient (CLI) | payer MEDICARE, SELFPAY ==
[2022-06-04 15:10] VITALS: BMI 31.6
--- NOTE | 2024-10-24 11:07 | DI.RAD.S_ITS ---
PROCEDURE: XR KNEE RT 3V INDICATIONS: Right knee pain TECHNIQUE: 3 views of the knee were acquired. COMPARISON: [facility], , XR KNEE RT 1TO2V, 06/01/2024, 10:06. FINDINGS: Bones: Lateral plate and screws transfix a non displaced spiral fracture of the distal femoral diaphysis. Subtotal osseous union Joints: Hemiarthroplasty medial compartment tibial femoral joint shows anatomic alignment. Severe degeneration lateral compartment and moderate degeneration patellofemoral compartment . small effusion. Soft tissues: Normal IMPRESSION: ORIF spiral fracture distal femoral diaphysis. Anatomic alignment. Incomplete osseous union. Medial tibial femoral hemiarthroplasty unremarkable. Moderate patellofemoral and severe lateral tibial femoral degeneration Dictated by: Scar Cagle M.D. on 10/25/2024 at 11:47 Approved by: Scar Cagle M.D. on 10/25/2024 at 11:49
== END ==
PROVIDERS: PCP Family Medicine; Referring Provider Family Medicine; Visit Provider Nurse Practitioner Family
DX: S72.491K Other fracture of lower end of right femur, subsequent encounter for closed fracture with nonunion (principal); M17.11 Unilateral primary osteoarthritis, right knee; M25.461 Effusion, right knee; M25.561 Pain in right knee; Z96.7 Presence of other bone and tendon implants; Z96.651 Presence of right artificial knee joint
CPT/HCPCS: 73562

== ENCOUNTER 2025-01-19 13:08 | Emergency (ER) | payer MEDICARE, SELFPAY ==
[2022-06-04 15:10] VITALS: BMI 31.6
[2025-01-19] VITALS (14 sets, daily range): BP systolic 104–224; BP diastolic 56–107; PULSE 77–104; RESP 12–34; O2SAT 95–98
--- NOTE | 2025-01-19 13:20 | DI.RAD.S_ITS ---
PROCEDURE: XR CHEST 1V
--- NOTE | 2025-01-19 13:20 | DI.CT.S_ITS ---
PROCEDURE: CT ANGIO HEAD AND NECK
--- NOTE | 2025-01-19 13:20 | DI.CT.S_ITS ---
PROCEDURE: CT HEAD/BRAIN WO CON
--- NOTE | 2025-01-19 13:21 | ED.DIZZY ---
HPI - Dizziness <Scar Dueñas, DO - Last Filed: 01/19/25 14:59> General Chief Complaint: Dizziness Stated Complaint: Sudden onset dizziness and headache Time Seen by Provider: 01/19/25 13:09 History of Present Illness HPI Narrative: 79 year old female history of mechanical aortic valve replacement on chronic warfarin anticoagulation, history of prior right hip fracture status post ORIF in [facility] in 1996, with right-sided surgery back in May of her femur and hip presents with headache, dizziness, weakness, seeing flashing lights, with her eyes that started this morning brought in via EMS for further evaluation. Other than what is stated 14 point review of system is negative Related Data Home Medications ?Medication ?Instructions ?Recorded ?Confirmed aspirin 81 mg tablet,delayed 81 mg PO QDAY ##0 08/12/16 12/18/24 release ezetimibe 10 mg tablet 10 mg PO DAILY 06/15/23 12/18/24 acetaminophen 325 mg tablet 650 mg PO Q6H PRN 07/14/24 12/18/24 metoprolol succinate 25 mg mg PO 09/06/24 12/18/24 tablet,extended release 24 hr warfarin 5 mg tablet 5 mg PO DAILY 09/06/24 01/02/25 Previous Rx's ?Medication ?Instructions ?Recorded metoprolol succinate 50 mg 75 mg (1.5 x 50 mg) PO QPM #150 07/18/24 tablet,extended release 24 hr tabs Parking Permit... 1 ea .Route ONCE #1 ea 09/06/24 warfarin 7.5 mg tablet See Rx Instructions .Route 10/05/24 .COMPLEX #120 tabs doxycycline hyclate 100 mg capsule 100 mg PO BID #180 caps 01/02/25 meclizine 25 mg tablet 25 mg PO TID PRN dizziness #10 tabs 01/19/25 Allergies Allergy/AdvReac Type Severity Reaction Status Date / Time mometasone furoate Allergy Severe ANAPHYLAXIS Verified 12/18/24 09:26 (MOMETASONE FUROATE) ezetimibe (EZETIMIBE) AdvReac Severe Muscle Verified 12/18/24 09:26 pain, spasms nirmatrelvir (From Paxlovid AdvReac Severe loss of Verified 12/18/24 09:26 (EUA)) consciousness ritonavir (From Paxlovid AdvReac Severe loss of Verified 12/18/24 09:26 (EUA)) consciousness adhesive (ADHESIVE) AdvReac Mild LOCAL Verified 12/18/24 09:26 HIVES,BLISTERS codeine (CODEINE) AdvReac Mild HALLUCINATI Verified 12/18/24 09:26 ONS diclofenac (From VOLTAREN) AdvReac Mild HIVES Verified 12/18/24 09:26 gluten (GLUTEN) AdvReac Mild IMMEDIATE Verified 12/18/24 09:26 DIARRHEA latex (LATEX) AdvReac Mild HIVES,BLIST Verified 12/18/24 09:26 ERS simvastatin (SIMVASTATIN) AdvReac Mild MYALGIAS Verified 12/18/24 09:26 Lhnzkuv-YDH-SpC Reductase AdvReac Mild MYALGIAS Verified 12/18/24 09:26 Inhibitor ([id number]-TRT-MDQ REDUCTASE INHIBITOR) Milk Containing Products AdvReac Unknown CRAMPING,DRINKS Verified 12/18/24 09:26 (Dairy) (MILK CONTAINING ALMOND PRODUCTS) MILK Review of Systems <Scar Dueñas DO - Last Filed: 01/19/25 14:59> Review of Systems ROS Unobtainable: All systems reviewed & are unremarkable except as noted in HPI and below Patient History <Scar Dueñas DO - Last Filed: 01/19/25 14:59> Medical History (Updated 01/19/25 @ 17:31 by Makenna Anne DO) Postoperative cellulitis of surgical wound (~06/2024) Gastroesophageal reflux disease without esophagitis (05/10/15) Transient ischemic attack Hand fracture, left (~01/27/23) Maxillary fracture, right side, sequela (~01/27/23) Nasal bone fracture (~01/27/23) Right rotator cuff tendonitis Hematuria Left knee injury (~10/23/22) Anticoagulation monitoring, INR range 2.5-3.5 COVID-19 virus infection (09/2021) MIHAI (obstructive sleep apnea) Aortic regurgitation Osteoporosis Allergy to casein Pulmonary hypertension Vision abnormalities Seasonal allergies Osteoarthritis (~1999) Depression (~1966) Anxiety (~1979) Osteopenia (~1997) Fracture (~2007) Foot pain (~2007) Carpal tunnel syndrome (~1987) Rheumatic fever (~1953) Chickenpox Measles (~1951) Mumps History of recurrent ear infection Urinary incontinence (~2002) IBS (irritable bowel syndrome) (~2014) GERD (gastroesophageal reflux disease) (~2008) Heavy menstrual period (~1994) Abnormal Pap smear of cervix Fibromyalgia Migraines (~1959) Sinus tachycardia Hypertension Hyperlipidemia Class 1 obesity (08/20/14) intermediate card tender current use of anticoagulant therapy Surgical History (Updated 06/16/24 @ 00:01 by ) S/P open reduction and internal fixation (ORIF) of fracture of medial condyle of right femur S/P right unicompartmental knee replacement Status post total shoulder arthroplasty Hx of bilateral cataract extraction Hx of plastic surgery S/P left unicompartmental knee replacement Hx of toe surgery Hx of tubal ligation Anesthesia H/O mitral valve replacement (01/16/09) Surgical procedure planned (~1996) Status post colonoscopy (~2006) Status post bunionectomy (~2010) Status post appendectomy (~1980) Family History Brother Age: 65 Hypertension High cholesterol Child Age: 53 Mental health problem Father High cholesterol Heart attack Social History household members: spouse Smoking Status: Never smoker alcohol intake: current substance use type: does not use alcohol intake frequency: a few times a month Exam <Scar Dueñas DO - Last Filed: 01/19/25 14:59> Narrative Exam Narrative: GENERAL: [79] year old patient appears stated age. Well-developed patient, in mild distress. HEAD: Atraumatic. Normocephalic. EYES: Pupils equal round and reactive. Extraocular motions intact. No scleral icterus. No injection or drainage. ENT: Nose without bleeding, purulent drainage. Throat without erythema, tonsillar hypertrophy or exudate. Airway patent. NECK: Trachea midline. Non tender CARDIOVASCULAR: Regular rate and rhythm without murmurs, gallops, or rubs. RESPIRATORY: Clear to auscultation. Breath sounds equal bilaterally. No wheezes, rales, or rhonchi. GASTROINTESTINAL: Abdomen soft, non-tender, nondistended. EXTREMITIES: No edema or joint tenderness. BACK: Nontender without deformity or crepitance. No flank tenderness. NEURO: AOx3. SKIN: No rash or erythema of visible areas Initial Vital Signs Initial Vital Signs: Vital Signs Pulse Oximetry 95 01/19/25 13:11 <Makenna Anne, DO - Last Filed: 01/19/25 20:22> Initial Vital Signs Initial Vital Signs: Vital Signs Pulse Oximetry 95 01/19/25 13:11 Scores <Scar Dueñas, DO - Last Filed: 01/19/25 14:59> NIH Stroke Scale Level of Conciousness: Alert, keenly responsive Ask month/age: Answers both questions correctly. Open/close eyes, close hand: Performs both tasks correctly Best gaze horizontal: Normal Visual barbour: No visual loss Facial palsy: Normal symetrical movement Left arm drift: No drift for full 10 sec Right arm drift: No drift for full 10 sec Left leg drift: No drift for full 5 sec Right leg drift: No drift for full 5 sec Limb ataxia: Absent Sensory on face/arms/legs: Normal, no sensory loss Best language: No aphasia, normal Dysarthria: Normal Extinction or inattention: No abnormality Total NIH Stroke scale score: 0 <Makenna Anne, DO - Last Filed: 01/19/25 20:22> NIH Stroke Scale Total NIH Stroke scale score: 0 Course <Scar Dueñas, DO - Last Filed: 01/19/25 14:59> Orders Ordered: ED Orders 01/19/25 13:20 CT angio head and neck Stat CT head/brain wo con Stat XR chest 1V Stat EKG-12 Lead Stat 01/19/25 13:30 Complete Blood Count AUTO DIFF Stat Comprehensive Metabolic Panel Stat Lipase Stat Magnesium Stat NT-proBNP (BNP-Adult 18+) Stat PTT Partial Thromboplastin Tor Stat Prothrombin Time INR Stat Troponin I Stat 01/19/25 15:38 Troponin I Stat Discontinued Medications Hydralazine HCl (Hydralazine 20 Mg/Ml Vial) 10 mg IV NOW ONE Stop: 01/19/25 13:22 Last Admin: 01/19/25 14:07 Dose: 10 mg Documented By: OBINNA Sodium Chloride (Normal Saline 0.9%) 500 mls @ 1,000 mls/hr IV BOLUS ONE Stop: 01/19/25 16:16 Last Infusion: 01/19/25 16:49 Dose: Infused Documented By: Admin: 01/19/25 16:07 Dose: 1,000 mls/hr Documented By: OBINNA Meclizine HCl (Meclizine Hcl 12.5 Mg Tablet) 25 mg PO NOW ONE Stop: 01/19/25 15:48 Last Admin: 01/19/25 16:07 Dose: 25 mg Documented By: OBINNA Vital Signs Vital signs: Vital Signs - 8 hr 01/19/25 13:11 01/19/25 13:12 01/19/25 13:12 Pulse Rate 80 Respiratory Rate Blood Pressure 224/107 H Pulse Oximetry 95 95 Oxygen Delivery Method 01/19/25 13:30 01/19/25 13:31 01/19/25 13:31 Pulse Rate 78 78 Respiratory Rate 19 20 Blood Pressure 207/90 H Pulse Oximetry 98 98 Oxygen Delivery Method 01/19/25 14:00 01/19/25 14:07 01/19/25 14:07 Pulse Rate 77 79 Respiratory Rate 12 15 Blood Pressure 164/70 H Pulse Oximetry 97 98 Oxygen Delivery Method Room Air 01/19/25 14:30 01/19/25 14:30 01/19/25 15:00 Pulse Rate 101 H 93 H Respiratory Rate 19 Blood Pressure 187/77 H Pulse Oximetry 98 95 Oxygen Delivery Method 01/19/25 15:01 01/19/25 15:01 01/19/25 15:30 Pulse Rate 99 H 104 H Respiratory Rate 20 34 H Blood Pressure 104/61 Pulse Oximetry 97 97 Oxygen Delivery Method 01/19/25 15:31 01/19/25 15:31 01/19/25 16:00 Pulse Rate 101 H Respiratory Rate 33 H Blood Pressure 160/66 H 116/56 L Pulse Oximetry 98 Oxygen Delivery Method 01/19/25 16:00 01/19/25 16:30 01/19/25 16:30 Pulse Rate 93 H 94 H Respiratory Rate 14 23 Blood Pressure 138/63 Pulse Oximetry 98 98 Oxygen Delivery Method 01/19/25 17:00 01/19/25 17:00 Pulse Rate 95 H Respiratory Rate 17 Blood Pressure 137/65 Pulse Oximetry 98 Oxygen Delivery Method <Makenna Anne, - Last Filed: 01/19/25 20:22> Orders Ordered: ED Orders 01/19/25 13:20 CT angio head and neck Stat CT head/brain wo con Stat XR chest 1V Stat EKG-12 Lead Stat 01/19/25 13:30 Complete Blood Count AUTO DIFF Stat Comprehensive Metabolic Panel Stat Lipase Stat Magnesium Stat NT-proBNP (BNP-Adult 18+) Stat PTT Partial Thromboplastin Tor Stat Prothrombin Time INR Stat Troponin I Stat 01/19/25 15:38 Troponin I Stat Discontinued Medications Hydralazine HCl (Hydralazine 20 Mg/Ml Vial) 10 mg IV NOW ONE Stop: 01/19/25 13:22 Last Admin: 01/19/25 14:07 Dose: 10 mg Documented By: OBINNA Sodium Chloride (Normal Saline 0.9%) 500 mls @ 1,000 mls/hr IV BOLUS ONE Stop: 01/19/25 16:16 Last Infusion: 01/19/25 16:49 Dose: Infused Documented By: Admin: 01/19/25 16:07 Dose: 1,000 mls/hr Documented By: OBINNA Meclizine HCl (Meclizine Hcl 12.5 Mg Tablet) 25 mg PO NOW ONE Stop: 01/19/25 15:48 Last Admin: 01/19/25 16:07 Dose: 25 mg Documented By: OBINNA Vital Signs Vital signs: Vital Signs - 8 hr 01/19/25 13:11 01/19/25 13:12 01/19/25 13:12 Pulse Rate 80 Respiratory Rate Blood Pressure 224/107 H Pulse Oximetry 95 95 Oxygen Delivery Method 01/19/25 13:30 01/19/25 13:31 01/19/25 13:31 Pulse Rate 78 78 Respiratory Rate 19 20 Blood Pressure 207/90 H Pulse Oximetry 98 98 Oxygen Delivery Method 01/19/25 14:00 01/19/25 14:07 01/19/25 14:07 Pulse Rate 77 79 Respiratory Rate 12 15 Blood Pressure 164/70 H Pulse Oximetry 97 98 Oxygen Delivery Method Room Air 01/19/25 14:30 01/19/25 14:30 01/19/25 15:00 Pulse Rate 101 H 93 H Respiratory Rate 19 Blood Pressure 187/77 H Pulse Oximetry 98 95 Oxygen Delivery Method 01/19/25 15:01 01/19/25 15:01 01/19/25 15:30 Pulse Rate 99 H 104 H Respiratory Rate 20 34 H Blood Pressure 104/61 Pulse Oximetry 97 97 Oxygen Delivery Method 01/19/25 15:31 01/19/25 15:31 01/19/25 16:00 Pulse Rate 101 H Respiratory Rate 33 H Blood Pressure 160/66 H 116/56 L Pulse Oximetry 98 Oxygen Delivery Method 01/19/25 16:00 01/19/25 16:30 01/19/25 16:30 Pulse Rate 93 H 94 H Respiratory Rate 14 23 Blood Pressure 138/63 Pulse Oximetry 98 98 Oxygen Delivery Method 01/19/25 17:00 01/19/25 17:00 Pulse Rate 95 H Respiratory Rate 17 Blood Pressure 137/65 Pulse Oximetry 98 Oxygen Delivery Method MDM - Dizziness <Scar Dueñas, DO - Last Filed: 01/19/25 14:59> Lab Data 01/19/25 13:30 01/19/25 13:30 Labs: Lab Results 01/19/25 01/19/25 Range/Units 13:30 15:38 WBC 4.5 (4.5-11.0) X10^3/uL RBC 4.60 (4.0-5.2) X10^6/uL Hgb 13.4 (12.0-16.0) g/dL Hct 39.9 (36-46) % MCV 86.9 (80-100) fL MCH 29.2 (26-34) PG MCHC 33.6 (30-36) % RDW 18.7 H (11.6-14.8) % Plt Count 196 (150-400) X10^3/uL Neut % (Auto) 55.9 (50-75) % Lymph % (Auto) 26.6 (25-40) % [place] % (Auto) 11.2 (3-14) % Eos % (Auto) 5.2 H (2-4) % Baso % (Auto) 1.1 (0-2) % Neut # (Auto) 2500 (6899-5128) /uL Lymph # (Auto) 1200 (0102-1502) /uL [place] # (Auto) 500 (0-900) /uL Eos # (Auto) 200 (0-450) /uL Baso # (Auto) 0 (0-100) /uL PT 22.5 H (9.4-12.5) SECONDS INR 2.0 H (0.9-1.3) APTT 40 H (25.1-36.5) SECONDS Sodium 136 L (137-145) mmol/L Potassium 4.2 (3.4-5.1) mmol/L Chloride 103 (98-107) mmol/L Carbon Dioxide 27 (22-32) mmol/L BUN 11 (7-17) mg/dL Creatinine 0.56 (0.52-1.04) mg/dL Estimated GFR > 60 (>60) mL/min BUN/Creatinine Ratio 19.6 (6-22) Glucose 96 (70-99) mg/dL Calcium 9.6 (8.4-10.2) mg/dL Magnesium 1.9 (1.6-2.3) mg/dL Total Bilirubin 0.6 (0.2-1.3) mg/dL AST 30 (14-36) IU/L ALT 18 (<35) IU/L Alkaline Phosphatase 94 (38-126) U/L Troponin I 0.017 < 0.012 (0.01-0.034) ng/mL NT-Pro-B Natriuret Pep 1100 H (<450) pg/mL Total Protein 7.9 (6.3-8.2) g/dL Albumin 4.5 (3.5-5.0) g/dL Globulin 3.4 (1.7-4.1) g/dL Albumin/Globulin Ratio 1.3 (1.0-2.8) Lipase 99 (23-300) U/L Urine Dip Bedside Urine Glucose Negative Bedside Urine Bilirubin - Negative Bedside Urine Ketone - Negative Urine Specific [place] 1.010 Bedside Urine Occult Blood +/- Bedside Urine pH 7.0 Bedside Urine Protein - Negative Bedside Urine Urobilinogen - Negative Bedside Urine Nitrite - Negative Bedside Urine Leukocytes - Negative Esterase Imaging Data CT scan - head: Radiologist's Impression: [address] [address] [address] Scan Report Signed Patient: Arleen Amador MR#: [id number] : 1945 Acct:[id number] Age/Sex: 79 / F Date of Service: 01/19/25 Loc: ED Accession Number: [id number] Procedure: CT head/brain wo con Ordering Provider: Scar Dueñas D.O. PROCEDURE: CT HEAD/BRAIN WO CON INDICATIONS: headache TECHNIQUE: Noncontrast 4.5 mm thick angled axial sections acquired from the foramen magnum to the vertex, with coronal and sagittal reformats. For radiation dose reduction, the following was used: automated exposure control, adjustment of mA and/or kV according to patient size. COMPARISON: [facility], CT, CT HEAD/BRAIN WO CON, 06/01/2024, 11:59. [facility], CT, CT ANGIO HEAD AND NECK, 01/19/2025, 13:46. FINDINGS: Image quality: Diagnostic. CSF spaces: Basal cisterns are patent. No extra-axial fluid collections. The ventricles are symmetric in size and shape. Brain: No intracranial bleeds or mass effect. There is cerebral volume loss, with resultant ventricular and sulcal prominence. There are periventricular and deep white matter chronic small vessel ischemic changes. There is intracranial internal carotid artery atherosclerosis. Skull and face: Calvarium and visualized facial bones appear intact, without suspicious lesions. Sinuses: Visualized sinuses demonstrate minimal scattered mucosal thickening. IMPRESSION: 1. No acute intracranial process. 2. Moderate atrophy and chronic microvascular ischemic changes. Dictated by: Padma Paredes M.D. on 01/19/2025 at 14:10 Approved by: Padma Paredes M.D. on 01/19/2025 at 14:10 CTA - brain/neck: Radiologist's Impression: [place] [address] CT Scan Report Signed Patient: Arleen Amador MR#: [id number] : 1945 Acct:[id number] Age/Sex: 79 / F Date of Service: 01/19/25 Loc: ED Accession Number: [id number] Procedure: CT head/brain wo con Ordering Provider: Scar Dueñas D.O. PROCEDURE: CT HEAD/BRAIN WO CON INDICATIONS: headache TECHNIQUE: Noncontrast 4.5 mm thick angled axial sections acquired from the foramen magnum to the vertex, with coronal and sagittal reformats. For radiation dose reduction, the following was used: automated exposure control, adjustment of mA and/or kV according to patient size. COMPARISON: [facility], CT, CT HEAD/BRAIN WO CON, 06/01/2024, 11:59. [facility], CT, CT ANGIO HEAD AND NECK, 01/19/2025, 13:46. FINDINGS: Image quality: Diagnostic. CSF spaces: Basal cisterns are patent. No extra-axial fluid collections. The ventricles are symmetric in size and shape. Brain: No intracranial bleeds or mass effect. There is cerebral volume loss, with resultant ventricular and sulcal prominence. There are periventricular and deep white matter chronic small vessel ischemic changes. There is intracranial internal carotid artery atherosclerosis. Skull and face: Calvarium and visualized facial bones appear intact, without suspicious lesions. Sinuses: Visualized sinuses demonstrate minimal scattered mucosal thickening. IMPRESSION: 1. No acute intracranial process. 2. Moderate atrophy and chronic microvascular ischemic changes. Dictated by: Padma Paredes M.D. on 01/19/2025 at 14:10 Approved by: Padma Paredes M.D. on 01/19/2025 at 14:10 Chest x-ray: Radiologist's Impression: [address] [address] XRay Report Signed Patient: Arleen Amador MR#: [id number] : 1945 Acct:[id number] Age/Sex: 79 / F Date of Service: 01/19/25 Loc: ED Accession Number: [id number] Procedure: XR chest 1V Ordering Provider: Scar Deuñas D.O. PROCEDURE: XR CHEST 1V INDICATIONS: headache TECHNIQUE: One view of the chest was acquired. COMPARISON: [facility], , XR CHEST 1V, 06/01/2024, 14:14. FINDINGS: Surgical changes and devices: Sternal wires, valve replacement and right shoulder arthroplasty. Lungs and pleura: Lungs are clear. No pleural effusions or pneumothorax. Mediastinum: Mediastinal contours appear normal. Heart size is enlarged. Bones and chest wall: No suspicious bony lesions. Overlying soft tissues appear unremarkable. IMPRESSION: No acute pulmonary process. Dictated by: Padma Paredes M.D. on 01/19/2025 at 14:43 Approved by: Padma Paredes M.D. on 01/19/2025 at 14:44 ECG Data Interpretation: Afib HR 80 MT undetermined QRS [address]-t wave change Unchanged from 06/01/24 MDM Narrative Medical decision making narrative: All lab work, vital signs, nurse triage note, medication list, previous ER visits, and all imaging studies reviewed. WBC 4.5 hemoglobin 13.4 platelet 196 sodium 136 potassium 4.2 chloride 103 CO2 27 BUN 11 creatinine 0.56 magnesium 1.9 1st set troponin 0.017 [address]NP [address] head showed no acute intracranial process. Moderate atrophy and chronic microvascular ischemic changes. CTA head and neck showed no significant intracranial arterial abnormality. No significant abnormality seen within the arteries of the neck. Second set troponin pending. Patient given 10 mg of hydralazine and signed out to Dr. Anne to get shift change pending final disposition <Makenna Anne, - Last Filed: 01/19/25 20:22> Lab Data Labs: Lab Results 01/19/25 01/19/25 Range/Units 13:30 15:38 WBC 4.5 (4.5-11.0) X10^3/uL RBC 4.60 (4.0-5.2) X10^6/uL Hgb 13.4 (12.0-16.0) g/dL Hct 39.9 (36-46) % MCV 86.9 (80-100) fL MCH 29.2 (26-34) PG MCHC 33.6 (30-36) % RDW 18.7 H (11.6-14.8) % Plt Count 196 (150-400) X10^3/uL Neut % (Auto) 55.9 (50-75) % Lymph % (Auto) 26.6 (25-40) % [place] % (Auto) 11.2 (3-14) % Eos % (Auto) 5.2 H (2-4) % Baso % (Auto) 1.1 (0-2) % Neut # (Auto) 2500 (9839-5309) /uL Lymph # (Auto) 1200 (6736-6084) /uL [place] # (Auto) 500 (0-900) /uL Eos # (Auto) 200 (0-450) /uL Baso # (Auto) 0 (0-100) /uL PT 22.5 H (9.4-12.5) SECONDS INR 2.0 H (0.9-1.3) APTT 40 H (25.1-36.5) SECONDS Sodium 136 L (137-145) mmol/L Potassium 4.2 (3.4-5.1) mmol/L Chloride 103 (98-107) mmol/L Carbon Dioxide 27 (22-32) mmol/L BUN 11 (7-17) mg/dL Creatinine 0.56 (0.52-1.04) mg/dL Estimated GFR > 60 (>60) mL/min BUN/Creatinine Ratio 19.6 (6-22) Glucose 96 (70-99) mg/dL Calcium 9.6 (8.4-10.2) mg/dL Magnesium 1.9 (1.6-2.3) mg/dL Total Bilirubin 0.6 (0.2-1.3) mg/dL AST 30 (14-36) IU/L ALT 18 (<35) IU/L Alkaline Phosphatase 94 (38-126) U/L Troponin I 0.017 < 0.012 (0.01-0.034) ng/mL NT-Pro-B Natriuret Pep 1100 H (<450) pg/mL Total Protein 7.9 (6.3-8.2) g/dL Albumin 4.5 (3.5-5.0) g/dL Globulin 3.4 (1.7-4.1) g/dL Albumin/Globulin Ratio 1.3 (1.0-2.8) Lipase 99 (23-300) U/L Urine Dip Bedside Urine Glucose Negative Bedside Urine Bilirubin - Negative Bedside Urine Ketone - Negative Urine Specific [place] 1.010 Bedside Urine Occult Blood +/- Bedside Urine pH 7.0 Bedside Urine Protein - Negative Bedside Urine Urobilinogen - Negative Bedside Urine Nitrite - Negative Bedside Urine Leukocytes - Negative Esterase MDM Narrative Medical decision making narrative: All lab work, vital signs, nurse triage note, medication list, previous ER visits, and all imaging studies reviewed. WBC 4.5 hemoglobin 13.4 platelet 196 sodium 136 potassium 4.2 chloride 103 CO2 27 BUN 11 creatinine 0.56 magnesium 1.9 1st set troponin 0.017 BNP [address] head showed no acute intracranial process. Moderate atrophy and chronic microvascular ischemic changes. CTA head and neck showed no significant intracranial arterial abnormality. No significant abnormality seen within the arteries of the neck. Second set troponin pending. Patient given 10 mg of hydralazine and signed out to Dr. Anne to get shift change pending final disposition 1530 Dr. Anne I have seen and evaluated patient myself I have reviewed chart. Patient reports that she started feeling dizzy and lightheaded. She sometimes gets flashing lights prior to migraine headaches in an aura she had that today did not think much of it she denies any kind of visual loss. She has a history of valve replacement she is on Coumadin she also has a history of atrial fibrillation. She denies any chest pain shortness of breath and weakness. At this time she feels still feels slightly dizzy. He now is complaining of some right-handed numbness asking if this could be from a pinched nerve. She reports that she has had some trouble with her neck lately but not in any significant pain. NIHSS 0. Blood work has been reviewed CBC shows no leukocytosis no anemia CMP no electrolyte abnormality no DAMIEN glucose 96 Troponin 0.017-->0.012 BNP 1100 Bilirubin liver enzymes within normal limits INR 2.0 Imaging reviewed Chest x-ray no acute cardiopulmonary process Head CT no acute intracranial process moderate atrophy CT angio no large vessel occlusion EKG reviwed atrial fibrillation rate 80 no ischemia similar to prior Patient ambulated in the ED without difficulty she typically needs a walker which she used. She is overall feeling much better after meclizine and fluids. At this time suspect more of a vertigo rather than a posterior CVA. She appears well nontoxic. She feels like she is ready and able to go home. Discharge Plan Departure Patient Disposition: Home Clinical Impression: Vertigo Instructions: DI for Vertigo Activity Restrictions/Additional Instructions: *You have been diagnosed with vertigo *What to do: At this time I am glad that you are feeling better. Make sure that your staying hydro *Continue to take medications as directed Meclizine 25 mg every 8 hours only if needed for dizzy *Follow up with your primary care provider in 2-3 days or call [phone] *Return to ER if you should have increasing dizziness chest pain palpitations vomiting or any new, worsening or concerning symptoms Prescriptions: New meclizine 25 mg tablet 25 mg PO TID PRN (Reason: dizziness) Qty: 10 0RF No Action aspirin 81 MG tablet,delayed release (DR/EC) 81 mg PO QDAY Qty: 0 metoprolol succinate 50 mg tablet extended release 24 hr 75 mg PO QPM Qty: 150 3RF warfarin 7.5 mg tablet See Rx Instructions .ROUTE .COMPLEX Qty: 120 3RF Protocol: Dose Management Condition: Wednesday Dose/Route: 7.5 mg Instruction: 1 x 7.5 mg tablet Condition: Wednesday Dose/Route: 7.5 mg Instruction: 1 x 7.5 mg tablet Condition: Wednesday Dose/Route: 7.5 mg Instruction: 1 x 7.5 mg tablet Condition: Wednesday Dose/Route: 3.75 mg Instruction: 0.5 x 7.5 mg tablets Condition: Dose/Route: 7.5 mg Instruction: 1 x 7.5 mg tablet Condition: Wednesday Dose/Route: 7.5 mg Instruction: 1 x 7.5 mg tablet Condition: Wednesday Dose/Route: 3.75 mg Instruction: 0.5 x 7.5 mg tablets Protocol Text: Adjustment Start Date: Wednesday01/02/25 INR Value: 3.2 INR Date: 01/02/25 Recheck Date: 01/30/25 Dose Instruction: TAKE 1 TABLET BY MOUTH 5 DAYS PER WEEK, AND 1 AND 1/2 TABLETS (11.25MG) ON WEDNESDAY AND FRIDAYS Rx Instructions: take 7.5mg daily or as directed ezetimibe 10 mg tablet 10 mg PO DAILY acetaminophen 325 mg tablet 650 mg PO Q6H PRN warfarin 5 mg tablet 5 mg PO DAILY Protocol: Dose Management Condition: Wednesday Dose/Route: 7.5 mg Instruction: 1 x 7.5 mg tablet Condition: Wednesday Dose/Route: 7.5 mg Instruction: 1 x 7.5 mg tablet Condition: Wednesday Dose/Route: 7.5 mg Instruction: 1 x 7.5 mg tablet Condition: Wednesday Dose/Route: 3.75 mg Instruction: 0.5 x 7.5 mg tablets Condition: Dose/Route: 7.5 mg Instruction: 1 x 7.5 mg tablet Condition: Wednesday Dose/Route: 7.5 mg Instruction: 1 x 7.5 mg tablet Condition: Wednesday Dose/Route: 3.75 mg Instruction: 0.5 x 7.5 mg tablets Protocol Text: Adjustment Start Date: Wednesday01/02/25 INR Value: 3.2 INR Date: 01/02/25 Recheck Date: 01/30/25 metoprolol succinate 25 mg tablet extended release 24 hr PO Parking Permit... 1 ea .Route ONCE Qty: 1 0RF Rx Instructions: As needed doxycycline hyclate 100 mg capsule 100 mg PO BID Qty: 180 0RF Rx Instructions: Arleen will be on this Antibiotic for her Lifetime per Dr. Larissa Solis, Infectious Disease @ [facility] Referrals: Krissy Ramirez DO [Primary Care Provider, Medical] Stand Alone Forms: Patient Portal/API
[2025-01-19 13:46] LABS: Add Manual Diff / Slide Review NO; Hematocrit 39.9 % (36-46); Hemoglobin 13.4 g/dL (12.0-16.0); Lymphocytes Absolute Auto 1200 /uL (1100-4500); Mean Corpuscular HGB Conc 33.6 % (30-36); Mean Corpuscular Hemoglobin 29.2 PG (26-34); Mean Corpuscular Volume 86.9 fL (80-100); Platelet Count 196 X10^3/uL (150-400)
[2025-01-19 14:03] LABS: Alanine Aminotransferase 18 IU/L (<35); Albumin 4.5 g/dL (3.5-5.0); Albumin Globulin Ratio 1.3 (1.0-2.8); Alkaline Phosphatase 94 U/L (38-126); Blood Urea Nitrogen 11 mg/dL (7-17); Calcium 9.6 mg/dL (8.4-10.2); Carbon Dioxide 27 mmol/L (22-32); Chloride 103 mmol/L (98-107); Estimated Glomerular Filt Rate > 60 mL/min (>60); Globulin 3.4 g/dL (1.7-4.1); Glucose 96 mg/dL (70-99); HEMOLYSIS < 15 (0-50); Lipase 99 U/L (23-300); Magnesium 1.9 mg/dL (1.6-2.3); Potassium 4.2 mmol/L (3.4-5.1); Sodium 136 mmol/L (137-145); Total Protein 7.9 g/dL (6.3-8.2)
[2025-01-19] MEDS: hydrALAZINE 20 MG/ML VIAL 10 MG IV (14:07)
[2025-01-19 14:15] LABS: NT-proBNP (BNP-Adult 18+) 1100 pg/mL (<450); Troponin I 0.017 ng/mL (0.01-0.034)
[2025-01-19 15:52] LABS: INR 2.0 (0.9-1.3); Prothrombin Time 22.5 SECONDS (9.4-12.5)
[2025-01-19 15:54] LABS: PTT Partial Thromboplastin Tim 40 SECONDS (25.1-36.5)
[2025-01-19] MEDS: SODIUM CHLORIDE 0.9% 500 ML 1000 ML IV (16:07)
[2025-01-19] MEDS: MECLIZINE HCL 12.5 MG TABLET 25 MG PO (16:07)
[2025-01-19 16:26] LABS: Troponin I < 0.012 ng/mL (0.01-0.034)
--- NOTE | 2025-01-19 17:43 | PC.NURSE ---
This RNs first interaction with patient. Provided D/C instructions.
== END 2025-01-19 17:44 | disposition home or self-care (01) ==
PROVIDERS: Family Medicine; Emergency Provider Emergency Medicine; PCP Family Medicine
DX: R42 Dizziness and giddiness (principal); R51.9 Headache, unspecified; Z95.2 Presence of prosthetic heart valve; Z79.01 Long term (current) use of anticoagulants
CPT/HCPCS: 36415; 70450; 70496; 70498; 71045; 80053; 81003; 83690; 83735; 83880; 84484; 85025; 85610; 85730; 93005; 96361; 96374; 99285; J0360; J7040; Q9967